=== PATIENT | male | born 1945 | race Caucasian/White ===

== ENCOUNTER 2016-08-08 22:36 | Inpatient (IN) ==
[2016-08-09] MEDS ORDERED: Ondansetron 4 MG/2 ML VIAL IVP ONE (01:34)
[2016-08-09] MEDS ORDERED: 0.9 % Sodium Chloride 1,000 ML IVC ONE (01:34)
[2016-08-09 02:16] LABS: Basophils % 0.1 %; Hemoglobin 14.2 g/dL (12.9-16.9); Immature Granulocytes % 0.6 % (0-4); Immature Platelets 5.4 % (1.1-6.1); Lymphocytes # 0.6 K/mcL (0.6-4.6); Lymphocytes % 6.5 %; Mean Corpuscular HGB Conc 34.6 g/dL (31.6-35.5); Mean Corpuscular Hemoglobin 29.9 pg (28.0-33.3); Mean Corpuscular Volume 86.3 fL (83.0-100.0); Mean Platelet Volume 10.4 fL (9.4-12.4); Monocytes # 0.9 K/mcL (0.0-1.3); Monocytes % 10.1 %; Neutrophils # 7.3 K/mcL (1.6-8.9); Platelet Count 115 K/mcL (140-400); Red Blood Count 4.75 M/mcL (4.19-5.50); Red Cell Distribution Width 13.1 % (11.5-14.5); Segmented Neutrophils % 82.7 %
[2016-08-09 02:30] LABS: Alanine Aminotransferase 50 Units/L (0-55); Albumin 3.4 g/dL (3.5-5.0); Albumin/Globulin Ratio 0.9 (1.1-2.2); Alkaline Phosphatase 65 Units/L (38-126); Aspartate Amino Transferase 40 Units/L (5-34); BUN/Creatinine Ratio 21 (6-26); Bilirubin,Direct 0.4 mg/dL (0.0-0.5); Bilirubin,Indirect 0.6 mg/dL (0.0-1.2); Blood Urea Nitrogen 18 mg/dL (8-26); Calcium 8.7 mg/dL (8.6-10.8); Carbon Dioxide 16 mEq/L (19-29); Chloride 97 mEq/L (98-109); Creatine Kinase 294 Units/L (30-200); Glucose 337 mg/dL (70-99); Osmolality,Calculated 283 (280-300); Phosphorous 2.9 mg/dL (2.3-4.7); Potassium 3.4 mEq/L (3.5-4.5); Sodium 129 mEq/L (136-145); Total Protein 7.4 g/dL (6.0-8.3); eGFR For African Americans > 60 (> 60); eGFR For Non-African Americans > 60 (> 60)
[2016-08-09 02:50] LABS: Thyroid Stimulating Hormone 0.718 mcIU/mL (0.350-4.840)
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
[2016-08-09] MEDS ORDERED: Magnesium Sulfate 1 GM in D5% in Water 100 ML IVPB ONE (05:15)
[2016-08-09] MEDS ORDERED: Thiamine (B-1) 100 MG in D5% in Water 50 ML IVPB STA (05:16)
[2016-08-09] MEDS ORDERED: Folic Acid 1 MG, Thiamine (B-1) 100 MG in D5% in Water 50 ML IVPB STA (05:16)
[2016-08-09 06:21] LABS: Bilirubin,Urine Negative (Negative); Blood,Urine Large (Negative); Clarity,Urine Clear (Clear); Color,Urine Yellow (Yellow); Glucose,Urine (UA) >=1000 mg/dL (Normal); Ketones,Urine 40 mg/dL (Negative); Leukocyte Esterase,Urine Negative (Negative); Nitrite,Urine Negative (Negative); Protein,Urine 100 mg/dL (Neg-Trace); Specific Gravity,Urine > 1.030 (1.010-1.025); Urobilinogen,Urine Normal (Normal)
[2016-08-09 06:23] LABS: Bacteria,Urine None Seen per hpf (None-Few); Hyaline Casts,Urine None Seen per lpf (None-Few); Squamous Epithelial Cell,Urine Moderate per lpf (None-Few)
[2016-08-09 06:26] LABS: Amphetamine Screen,Urine Negative ng/mL (Cutoff=1000); Barbiturate Screen,Urine Negative ng/mL (Cutoff=200); Benzodiazepines Screen,Urine Negative ng/mL (Cutoff=200); Cannabinoid Screen,Urine Negative ng/mL (Cutoff = 50); Cocaine Screen,Urine Negative ng/mL (Cutoff= 300); Opiate Screen,Urine Negative ng/mL (Cutoff=300); Phencyclidine Screen,Urine Negative ng/mL (Cutoff=25)
[2016-08-09] MEDS ORDERED: Ondansetron ODT 4 MG TAB.RAPDIS SL PRN (10:38)
[2016-08-09] MEDS ORDERED: Naloxone 0.4 MG/ML INJ IVP PRN (10:38)
[2016-08-09] MEDS ORDERED: *HR* Dextrose 50 % in Water (Syg) 50 ML SYRINGE IVP PRN ×2 (10:46→19:39)
[2016-08-09] MEDS ORDERED: Dextrose Gel 15 GM PO PRN ×2 (10:46)
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
[2016-08-09] MEDS ORDERED: 0.9 % Sodium Chloride 1,000 ML IVC SCH (12:15)
[2016-08-09 12:48] LABS: ABG Base Excess -1.5 mEq/L (-2.0 to 3.0); ABG HCO3 20.9 mEQ/L (21-27); ABG Oxygen Saturation 93 % (95-98); ABG PCO2 28 mmHg (35-45); ABG PH 7.48 pH Units (7.32-7.45); ABG PO2 62 mmHg (85-104); ABG TCO2 21.8 mEq/L (20-26)
[2016-08-09 12:49] LABS: Blood Gas FiO2 21 %
[2016-08-09] MEDS: Insulin LISPRO 300 UNITS/3 ML VIAL SQ SCH ×2 (12:57→15:51)
[2016-08-09 13:14] LABS: Hemoglobin A1C 8.3 %
[2016-08-09 13:29] LABS: Phosphorous 2.1 mg/dL (2.3-4.7)
[2016-08-09] MEDS ORDERED: *HR* Heparin 5,000 UNIT/ML VIAL IVP ONE (16:57)
[2016-08-09] MEDS ORDERED: *HR* Heparin 5,000 UNIT/ML VIAL IVP PRN ×2 (16:57)
[2016-08-09] MEDS ORDERED: Nitroglycerin 25 MG/250 ML INFUS..BTL IVC SCH (17:00)
[2016-08-09] MEDS ORDERED: Heparin 25,000 UNIT/500 ML D5W 25,000 UNIT/500 ML MLS IVC SCH (17:00)
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
--- NOTE | 2016-08-09 18:14 | Electrocardiograph Report ---
[address] [place] [address] Test Date: 2016-08-09 Pat Name: Sergo Hemphill Department: 104 Room: 2NE32 Gender: M [employer]: NEGIN : 1945 Requested By: Sylvain Coates Order Number: [id number] Reading MD: Sandi Gaspar Measurements Intervals [place] Rate: 112 P: 61 CA: 207 QRS: -78 QRSD: 149 T: 8 QT: 413 QTc: 480 Interpretive Statements SINUS TACHYCARDIA WITH OCCASIONAL SUPRAVENTRICULAR PREMATURE COMPLEXES RIGHT BUNDLE BRANCH BLOCK INFERIOR MYOCARDIAL INFARCTION, OF INDETERMINATE AGE ANTEROLATERAL LA, INDETERMINATE AGE Electronically Signed On 08-09-2016 18:13:09 EDT by Sandi Gaspar
[2016-08-09 19:09] LABS: Hematocrit 39.4 % (37.5-50.1); Hemoglobin 14.1 g/dL (12.9-16.9); Mean Corpuscular HGB Conc 35.8 g/dL (31.6-35.5); Mean Corpuscular Hemoglobin 30.7 pg (28.0-33.3); Mean Corpuscular Volume 85.8 fL (83.0-100.0); Mean Platelet Volume 10.9 fL (9.4-12.4); Platelet Count 111 K/mcL (140-400); Red Blood Count 4.59 M/mcL (4.19-5.50); Red Cell Distribution Width 13.2 % (11.5-14.5)
[2016-08-09 19:13] LABS: INR 1.4; Prothrombin Time 15.6 Seconds (9.4-12.1)
[2016-08-09 19:16] LABS: Activated Partial Thrombo Time 25.7 Seconds (26.0-36.0)
[2016-08-09 19:23] LABS: BUN/Creatinine Ratio 21 (6-26); Blood Urea Nitrogen 15 mg/dL (8-26); Calcium 8.6 mg/dL (8.6-10.8); Carbon Dioxide 17 mEq/L (19-29); Chloride 99 mEq/L (98-109); Glucose 246 mg/dL (70-99); Magnesium 1.3 mg/dL (1.6-2.6); Osmolality,Calculated 277 (280-300); Potassium 3.4 mEq/L (3.5-4.5); Sodium 129 mEq/L (136-145); eGFR For African Americans > 60 (> 60); eGFR For Non-African Americans > 60 (> 60)
[2016-08-09] MEDS ORDERED: D5% in 0.45% NACL 1,000 ML IVC PRN (19:39)
[2016-08-09] MEDS ORDERED: D5% in 0.45% NACL w KCl 20 MEQ/1,000 ML MLS IVC PRN (19:39)
[2016-08-09] MEDS ORDERED: Insulin Human Regular 100 UNIT in 0.9 % Sodium Chloride 100 ML IVC SCH (19:45)
[2016-08-09] MEDS ORDERED: Magnesium Sulfate 2 GM in D5% in Water 100 ML IVPB PRN (19:50)
[2016-08-09] MEDS ORDERED: Calcium Gluconate 1,000 MG in D5% in Water 100 ML IVPB PRN (19:50)
[2016-08-09] MEDS ORDERED: Sodium Phosphate 30 MMOL in D5% in Water 100 ML IVPB PRN (19:50)
--- NOTE | 2016-08-09 20:10 | ECHO - Doppler Report ---
Echocardiogram Name: Sergo Hemphill Date of Study: 08/09/2016 Date: 1945 Ht: 70.0 in Medical Record#: [id number] Age: 70 Wt: 220.0 lb Gender: Male BSA: 2.17 Order #: [id number] Location: [facility] Room #: 2NE32 Reading Physician: Alexx Rowland MD, [facility] Refuse Laborer: Lily Saldaña RDCS Ordering Physician: Maryam Bailey CNP Primary Physician: [facility] Indications: Right heart Strain PE Impressions: Technically sub-optimal due to clinical status. Patient was moving during the examination. Sinus tachycardia with bundle branch block. Severe LV systolic dysfunction, LVEF 30%. There are regional wall motion abnormalities, see diagram below. Consider ischemic cardiomyopathy vs stress-induced cardiomyopathy. Normal right ventricular size and function. No evidence of pulmonary hypertension. No significant valvular dysfunction. Left Ventricular Wall Motion: Rest Echo Findings The apex, apical inferior, mid inferior, basal inferior, apical anterior, apical septal, mid inferior septal, apical lateral, mid anterior lateral, mid anterior septal and mid inferior lateral vance were hypokinetic. All other wall segments showed normal motion. Findings: Study Quality * Technically sub-optimal due to clinical status. Patient was moving during the examination. ECG Findings * Sinus tachycardia with bundle branch block. Left Ventricle * Severe LV systolic dysfunction, LVEF 30%. There are regional wall motion abnormalities, see diagram below. Consider ischemic cardiomyopathy vs stress-induced cardiomyopathy. * Normal LV chamber size and wall thickness. * Indeterminate diastolic function. Right Ventricle * Normal right ventricular size and function. Left Atrium * Normal left atrial size. Right Atrium * Normal right atrial size. Aorta * Normally sized aortic root. Pericardium * There is a trivial pericardial effusion present. IVC * The IVC is not well evaluated. Aortic Valve * Trileaflet aortic valve. * No aortic stenosis. * No aortic regurgitation. Mitral Valve * Normal mitral valve structure. * No mitral stenosis. * No mitral regurgitation. Tricuspid Valve * Tricuspid valve not well visualized. * No tricuspid stenosis. * Trace tricuspid regurgitation. * No evidence of pulmonary hypertension. Pulmonic Valve * Pulmonic valve not well visualized. * No pulmonic stenosis. * Trace pulmonic regurgitation. History Hypertension Diabetes Hypercholesteremia Myocardial Infarction Measurements: BP: 177/ 102 2D Normal Values RVIDd: 3.30 cm IVSd: .90 cm 0.6 - 1.0 cm LVIDd: 5.70 cm 3.7 - 5.6 cm LVPWd: .80 cm 0.6 - 1.1 cm LVIDs: 3.70 cm 1.5 - 3.6 cm AO: 3.30 cm < 4.0 cm LA volume: 53 Tricuspid Valve TV Regurg Peak Grad: 25.00mmHg TV Regurg Peak Saad: 2.51m/sec Updated by Alexx Rowland MD, [facility] on 08/09/2016 8:04:43 PM electronically signed on 08/09/2016 8:05:33 PM with status of Final Wall Motion Strong: 1=Normal, 2=Hypokinesis, 3=Akinesis, 4=Dyskinesis, 5=Aneurysmal, 6=Hyperkinetic, X=Not Visualized (Blank)=Missing
[2016-08-09] MEDS ORDERED: 0.45 % Sodium Chloride w/KCl 20 MEQ/1,000 ML MLS IVC SCH (20:15)
[2016-08-09] MEDS ORDERED: Insulin LISPRO 300 UNITS/3 ML VIAL SQ SCH (21:00)
[2016-08-09 21:18] LABS: Adenovirus Not Detected (Not Detect); Bordetella Pertussis Not Detected (Not Detect); Chlamydophila pneumoniae Not Detected (Not Detect); Coronavirus 229E Not Detected (Not Detect); Coronavirus HKU1 Not Detected (Not Detect); Coronavirus NL63 Not Detected (Not Detect); Coronavirus OC43 Not Detected (Not Detect); Human Metapneumovirus Not Detected (Not Detect); Human Rhinovirus/Enterovirus Not Detected (Not Detect); Influenza A Subtype 2009 H1 Not Detected (Not Detect); Influenza A Untypeable Not Detected (Not Detect); Influenza B Not Detected (Not Detect); Mycoplasma pneumoniae Not Detected (Not Detect); Parainfluenza Virus 1 Not Detected (Not Detect); Parainfluenza Virus 2 Not Detected (Not Detect); Parainfluenza Virus 3 Not Detected (Not Detect); Parainfluenza Virus 4 Not Detected (Not Detect); Respiratory Syncytial Virus Not Detected (Not Detect)
[2016-08-09] MEDS: Gabapentin 400 MG CAPSULE PO SCH (21:58)
[2016-08-09] MEDS: 0.9 % Sodium Chloride w KCl 20 MEQ/1,000 ML MLS IVC SCH (22:30)
[2016-08-09] MEDS: 0.9 % Sodium Chloride 1,000 ML IVC SCH ×2 (22:30→22:31)
[2016-08-09 22:42] LABS: Hematocrit 39.7 % (37.5-50.1); Hemoglobin 14.1 g/dL (12.9-16.9); Immature Platelets 7.2 % (1.1-6.1); Mean Corpuscular HGB Conc 35.5 g/dL (31.6-35.5); Mean Corpuscular Hemoglobin 30.2 pg (28.0-33.3); Mean Platelet Volume 10.4 fL (9.4-12.4); Platelet Count 111 K/mcL (140-400); Red Blood Count 4.67 M/mcL (4.19-5.50); Red Cell Distribution Width 13.1 % (11.5-14.5)
[2016-08-09 22:55] LABS: BUN/Creatinine Ratio 21 (6-26); Blood Urea Nitrogen 15 mg/dL (8-26); Calcium 8.8 mg/dL (8.6-10.8); Carbon Dioxide 16 mEq/L (19-29); Chloride 98 mEq/L (98-109); Glucose 259 mg/dL (70-99); Magnesium 1.3 mg/dL (1.6-2.6); Osmolality,Calculated 280 (280-300); Potassium 3.5 mEq/L (3.5-4.5); Sodium 130 mEq/L (136-145); eGFR For African Americans > 60 (> 60); eGFR For Non-African Americans > 60 (> 60)
[2016-08-09 23:20] LABS: Lymphocytes # 1.3 K/mcL (0.6-4.6); Monocytes # 2.1 K/mcL (0.0-1.3); Neutrophils # 6.1 K/mcL (1.6-8.9)
[2016-08-09 23:23] LABS: Dohle Bodies Present (Not Present)
[2016-08-10] MEDS ORDERED: Acetaminophen 650 MG RECTAL SUPP RC ONE (00:41)
[2016-08-10] MEDS ORDERED: Aztreonam 2,000 MG in D5% in Water (Mini-Bag+) 100 ML IVPB ONE (00:43)
[2016-08-10] MEDS ORDERED: Vancomycin 1,500 MG in D5% in Water 250 ML IVPB ONE (00:43)
[2016-08-10 01:08] LABS: Hematocrit 39.7 % (37.5-50.1); Mean Corpuscular HGB Conc 35.3 g/dL (31.6-35.5); Mean Corpuscular Hemoglobin 29.9 pg (28.0-33.3); Mean Corpuscular Volume 84.6 fL (83.0-100.0); Mean Platelet Volume 10.8 fL (9.4-12.4); Platelet Count 108 K/mcL (140-400); Red Blood Count 4.69 M/mcL (4.19-5.50); Red Cell Distribution Width 13.1 % (11.5-14.5); VBG HCO3 19.6 mEq/L (21-27); VBG PH 7.52 pH Units (7.32-7.42)
[2016-08-10 01:26] LABS: BUN/Creatinine Ratio 23 (6-26); Blood Urea Nitrogen 17 mg/dL (8-26); Calcium 9.1 mg/dL (8.6-10.8); Carbon Dioxide 18 mEq/L (19-29); Chloride 101 mEq/L (98-109); Glucose 166 mg/dL (70-99); Magnesium 1.6 mg/dL (1.6-2.6); Osmolality,Calculated 277 (280-300); Potassium 3.3 mEq/L (3.5-4.5); Sodium 131 mEq/L (136-145); eGFR For African Americans > 60 (> 60); eGFR For Non-African Americans > 60 (> 60)
[2016-08-10] MEDS: 0.9 % Sodium Chloride w KCl 20 MEQ/1,000 ML MLS IVC SCH ×2 (01:34→02:05)
[2016-08-10] MEDS: 0.9 % Sodium Chloride 1,000 ML IVC SCH ×3 (01:34→02:31)
[2016-08-10 01:35] LABS: Lymphocytes # 1.2 K/mcL (0.6-4.6); Monocytes # 0.2 K/mcL (0.0-1.3); Neutrophils # 8.4 K/mcL (1.6-8.9); Platelet Estimate Decreased (Normal); Reactive Lymphocytes Present (Not Present)
[2016-08-10 01:36] LABS: Dohle Bodies Present (Not Present)
[2016-08-10] MEDS ORDERED: *HR* Dextrose 50 % in Water (Syg) 50 ML SYRINGE IVP PRN (01:59)
[2016-08-10] MEDS ORDERED: Dextrose Gel 15 GM PO PRN ×2 (01:59)
[2016-08-10] MEDS: Insulin DETEMIR 100 UNIT/ML X5UNITS SQ SCH ×2 (02:20→19:45)
[2016-08-10] MEDS: Vancomycin 1,500 MG in D5% in Water 250 ML IVPB SCH ×2 (03:47→16:13)
[2016-08-10] MEDS: Insulin LISPRO 300 UNITS/3 ML VIAL SQ SCH ×4 (06:06→23:22)
[2016-08-10] MEDS: Acetaminophen 650 MG RECTAL SUPP RC PRN (06:47)
[2016-08-10] MEDS: Aspirin 81 MG TAB.CHEW PO SCH (07:56)
[2016-08-10] MEDS: Cholecalciferol (D-3) 1,000 UNIT TABLET PO SCH (07:56)
[2016-08-10] MEDS: Gabapentin 400 MG CAPSULE PO SCH ×4 (07:56→19:45)
[2016-08-10 08:20] LABS: BUN/Creatinine Ratio 27 (6-26); Blood Urea Nitrogen 19 mg/dL (8-26); Calcium 8.7 mg/dL (8.6-10.8); Carbon Dioxide 17 mEq/L (19-29); Chloride 100 mEq/L (98-109); Glucose 236 mg/dL (70-99); Magnesium 1.8 mg/dL (1.6-2.6); Osmolality,Calculated 278 (280-300); Potassium 3.6 mEq/L (3.5-4.5); Sodium 129 mEq/L (136-145); eGFR For African Americans > 60 (> 60); eGFR For Non-African Americans > 60 (> 60)
[2016-08-10] MEDS: MetroNIDAZOLE 500 MG/100 ML 500 MG/100 ML BAG IVPB SCH ×3 (08:27→23:21)
[2016-08-10 10:35] LABS: ABG Base Excess -2.2 mEq/L (-2.0 to 3.0); ABG HCO3 20.6 mEQ/L (21-27); ABG Oxygen Saturation 93 % (95-98); ABG PCO2 29 mmHg (35-45); ABG PH 7.46 pH Units (7.32-7.45); ABG PO2 62 mmHg (85-104); ABG TCO2 21.5 mEq/L (20-26)
[2016-08-10 10:36] LABS: Blood Gas FiO2 30 %
--- NOTE | 2016-08-10 11:05 | Cardiology Progress Note ---
Date of Encounter: 07/13/16 Time of Encounter: 11:03 Assessment and Plan (1) Elevated troponin Current Visit: Yes Status: Acute Elevated troponin 0.03, 0.17. Demand ischemia in the setting of acute viral illness and DKA. EKG shows sinus tachycardia and RBBB. Old inferior NJ. TTE shows reduced EF, no previous echo to compare. Possible takostubo cardiomyopathy vs ischemic cause. Recommend treating viral illness and DKA and repeat study prior to discharge to re-evaluate EF. Please notify cardiology once completed so recommendations can be made. We will follow peripherally. Caution with IV fluid d/t low EF. He is chest pain free. (2) Cardiomyopathy Current Visit: Yes Status: Acute TTE shows severe reduction of LV function. EF 30%. No significant valvular disease. Consider takostubo vs ischemia. No significant fluid overload on exam. CXR shows pulmonary congestion, pulmonary edema. Recommend holding IV fluid. Consider diuresis as needed. 24 hour fluid status is -1577 ml. He is NPO. Low sodium diet once taking oral. Recommend treating DKA, viral illness, and fever. Prior to discharge repeat echocardiogram. Please call for further recommendation and follow-up. Change lopressor to toprol XL. Add prisca-inhibitor. We will follow peripherally while he is treated for his viral illness and DKA. Qualifiers: Cardiomyopathy type: unspecified Qualified Code(s): I42.9 - Cardiomyopathy , unspecified (3) Hypertension Current Visit: Yes Status: Acute B/p improved. Wean off NTG gtt. Start lisinopril. Qualifiers: Hypertension type: essential hypertension Qualified Code(s): I10 - Essential (primary) hypertension Discussion w patient/family: The assessment and plan as outlined above was discussed with the patient and/or family members who expressed understanding and agreement. All questions were answered. Thank you for involving us in the care of your patient. Please call with any questions. Plan of care discussed with Dr. Rowland. Subjective Principal diagnosis: viral syndrome/ DKA/cardiomyoapthy Interval history: Mr. Hemphill is more confused this morning. Currently with fever and cooling blanket. Denies chest pain. Objective Vital Signs, Last 4 Hours Temp Pulse Resp BP Pulse Ox 08/10/16 10:10 101.6 F H 103 22 140/90 91 L 08/10/16 08:34 102.8 F H 105 133/89 92 L 08/10/16 08:25 91 L General: Other (Confused, restless, ill apppearing male) HEENT: Atraumatic, Normocephaly, Mucus Membranes Moist Neck: No JVD, Normal carotid pulses Cardiac: Reg Rate and Rhythm, Other (SR RBBB) Lungs: Normal Breath Sounds, No Wheeze, Rales, Rhonchi Neuro: Alert and responsive, No focal deficits noted Abdomen: Soft, Non-Tender Skin: No rashes noted on visualized skin Musculoskeletal: No Chest Wall Tenderness Extremities: No Clubbing, No Cyanosis, No Edema, Normal Pulses Results 08/10/16 01:00 08/10/16 07:57 Lab Results 08/09/16 08/09/16 08/09/16 12:47 12:47 18:51 WBC 8.6 Hgb 14.1 Hct 39.4 Plt Count 111 L INR APTT D-Dimer 4758 H Sodium Potassium Chloride Carbon Dioxide BUN Creatinine Glucose Calcium Magnesium Troponin I 0.17 H* 08/09/16 08/09/16 08/09/16 18:51 18:51 22:26 WBC 9.5 Hgb 14.1 Hct 39.7 Plt Count 111 L INR 1.4 APTT 25.7 L D-Dimer Sodium 129 L Potassium 3.4 L Chloride 99 Carbon Dioxide 17 L BUN 15 Creatinine 0.72 Glucose 246 H Calcium 8.6 Magnesium 1.3 L Troponin I 08/09/16 08/10/16 08/10/16 22:26 01:00 01:00 WBC 9.8 Hgb 14.0 Hct 39.7 Plt Count 108 L INR APTT D-Dimer Sodium 130 L 131 L Potassium 3.5 3.3 L Chloride 98 101 Carbon Dioxide 16 L 18 L BUN 15 17 Creatinine 0.72 0.73 Glucose 259 H 166 H Calcium 8.8 9.1 Magnesium 1.3 L 1.6 Troponin I 08/10/16 07:57 WBC Hgb Hct Plt Count INR APTT D-Dimer Sodium 129 L Potassium 3.6 Chloride 100 Carbon Dioxide 17 L BUN 19 Creatinine 0.71 L Glucose 236 H Calcium 8.7 Magnesium 1.[address] 08/09/16 01:38 IMPRESSION: No acute intracranial abnormality. D/ / Saulo Meehan MD / Saulo Meehan MD Interpreting Provider: Saulo Meehan MD Wrist X-Ray 08/09/16 03:57 IMPRESSION: No fracture or malalignment. D/ / Justice Harper MD / Justice Harper MD Interpreting Provider: Justice Harper MD Brain MRI 08/09/16 12:20 IMPRESSION: No acute intracranial abnormality. Mild generalized volume loss and mild chronic microvascular ischemic disease. D/ / 08/09/2016 14:14:02 Yeimy Monique MD / [facility] Interpreting Provider: Yeimy Monique MD Chest CTA 08/09/16 14:26 IMPRESSION: 1. No evidence of pulmonary embolus. 2. No acute pulmonary abnormality to account for patient's shortness of breath. 3. Moderate centrilobular emphysema. 4. Coronary artery disease. D/ / 08/09/2016 15:51:30 Peter Wood MD / [facility] Interpreting Provider: Peter Wood MD Cervical Spine MRI 08/09/16 19:51 IMPRESSION: Severely motion degraded exam. No obvious epidural collection or mass detected. Disc osteophyte complex at C3-C4 appears to moderately narrow the spinal canal and both neural foramen. Milder degenerative neural foraminal stenosis at C4-C5, C5-C6, and C6-C7. D/ / Ralph Fleming MD / Ralph Fleming MD Interpreting Provider: Ralph Fleming MD Abdomen/Pelvis CT 08/10/16 00:44 IMPRESSION: 1. Diverticulosis with suspected diverticulitis of the distal descending colon. 2. Coronary artery disease. D/ / Justice Harper MD / Justice Harper MD Interpreting Provider: Justice Harper MD Chest X-Ray 08/10/16 10:20 IMPRESSION: Pulmonary vascular congestion with mild increased prominence of the interstitium suggestive of fluid overload. Otherwise no acute process. D/ / Nilay Tejeda MD / Nliay Tejeda MD Interpreting Provider: Nilay Tejeda MD - Imaging and Cardiology Chest Xray: report reviewed Echo: report reviewed - EKG Interpretation EKG results cardiology: other - VTE Documentation of Mechanical Device: Intermittent pneumatic compression device Consult Discharge Plan - Plan [facility]errals: [facility] [Primary Care Provider] -
[2016-08-10 11:19] LABS: Acinetobacter baumannii by PCR Not Detected (Not Detect); Candida albicans by PCR Not Detected (Not Detect); Candida glabrata by PCR Not Detected (Not Detect); Candida krusei by PCR Not Detected (Not Detect); Candida parapsilosis by PCR Not Detected (Not Detect); Candida tropicalis by PCR Not Detected (Not Detect); Enterococcus by PCR Not Detected (Not Detect); Escherichia coli by PCR Not Detected (Not Detect); Klebsiella oxytoca by PCR Not Detected (Not Detect); Klebsiella pneumoniae by PCR Not Detected (Not Detect); Pseudomonas aeruginosa by PCR Not Detected (Not Detect); Serratia marcescens by PCR Not Detected (Not Detect); Staphylococcus aureus by PCR ***DETECTED*** (Not Detect); Streptococcus agalactiae(B)PCR Not Detected (Not Detect); Streptococcus by PCR Not Detected (Not Detect); Streptococcus pneumoniae PCR Not Detected (Not Detect); Streptococcus pyogenes (A) PCR Not Detected (Not Detect); mecA Methicillin-Resist Gene Not Detected (Not Detect)
[2016-08-10] MEDS: Metoprolol XL (24 HR) Succ 25 MG TAB.ER.24H PO SCH (12:55)
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
[2016-08-10] MEDS: Aztreonam 1,000 MG in D5% in Water (Mini-Bag+) 100 ML IVPB SCH ×2 (16:13→23:21)
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
[2016-08-10] MEDS ORDERED: Acetaminophen IV 500 MG/50 ML INFUS..BTL IVPB ONE (19:08)
[2016-08-10] MEDS: Furosemide 40 MG/4 ML VIAL IVP SCH (19:46)
[2016-08-10 21:01] LABS: BUN/Creatinine Ratio 28 (6-26); Blood Urea Nitrogen 21 mg/dL (8-26); Calcium 8.6 mg/dL (8.6-10.8); Carbon Dioxide 16 mEq/L (19-29); Chloride 99 mEq/L (98-109); Glucose 320 mg/dL (70-99); Osmolality,Calculated 281 (280-300); Potassium 3.5 mEq/L (3.5-4.5); Sodium 128 mEq/L (136-145); eGFR For African Americans > 60 (> 60); eGFR For Non-African Americans > 60 (> 60)
[2016-08-11] MEDS: Vancomycin 1,500 MG in D5% in Water 250 ML IVPB SCH (01:59)
[2016-08-11] MEDS: Acetaminophen 650 MG RECTAL SUPP RC PRN ×2 (02:04→09:04)
[2016-08-11 06:30] LABS: BUN/Creatinine Ratio 34 (6-26); Blood Urea Nitrogen 25 mg/dL (8-26); Calcium 8.9 mg/dL (8.6-10.8); Carbon Dioxide 16 mEq/L (19-29); Chloride 99 mEq/L (98-109); Glucose 319 mg/dL (70-99); Magnesium 1.7 mg/dL (1.6-2.6); Osmolality,Calculated 285 (280-300); Phosphorous 2.5 mg/dL (2.3-4.7); Potassium 3.7 mEq/L (3.5-4.5); Sodium 129 mEq/L (136-145); eGFR For African Americans > 60 (> 60); eGFR For Non-African Americans > 60 (> 60)
[2016-08-11 06:59] LABS: Ionized Calcium 0.96 mmol/L (1.15-1.35)
[2016-08-11 07:23] LABS: Platelet Estimate Decreased (Normal)
[2016-08-11 07:24] LABS: Toxic Granulation Present (Not Present)
[2016-08-11] MEDS: Insulin LISPRO 300 UNITS/3 ML VIAL SQ SCH ×4 (08:40→21:59)
[2016-08-11] MEDS: Aztreonam 1,000 MG in D5% in Water (Mini-Bag+) 100 ML IVPB SCH ×2 (08:49→16:13)
[2016-08-11] MEDS: Aspirin 81 MG TAB.CHEW PO SCH (08:52)
[2016-08-11] MEDS: Cholecalciferol (D-3) 1,000 UNIT TABLET PO SCH (08:53)
[2016-08-11] MEDS: Metoprolol XL (24 HR) Succ 25 MG TAB.ER.24H PO SCH (08:53)
[2016-08-11] MEDS: Gabapentin 400 MG CAPSULE PO SCH ×4 (08:54→21:36)
[2016-08-11] MEDS: Furosemide 40 MG/4 ML VIAL IVP SCH ×2 (08:56→16:14)
[2016-08-11] MEDS ORDERED: Aminoglycoside Consult 1 EACH MC ONE (09:52)
[2016-08-11] MEDS: MetroNIDAZOLE 500 MG/100 ML 500 MG/100 ML BAG IVPB SCH ×2 (09:56→16:14)
[2016-08-11] MEDS: Micafungin 100 MG in 0.9 % Sodium Chloride 100 ML IVPB SCH (12:41)
[2016-08-11 13:33] LABS: Appearance,CSF Clear (Clear)
[2016-08-11 13:34] LABS: Red Blood Cell,CSF < 0 RBC/mcL (0-1)
[2016-08-11] MEDS ORDERED: Vancomycin 1,750 MG in D5% in Water 500 ML IVPB SCH (14:00)
[2016-08-11 16:02] LABS: Hemoglobin 14.3 g/dL (12.9-16.9); Lymphocytes # 0.6 K/mcL (0.6-4.6); Neutrophils # 9.5 K/mcL (1.6-8.9); Red Blood Count 4.78 M/mcL (4.19-5.50)
[2016-08-11 16:03] LABS: Hematocrit 41.9 % (37.5-50.1); Mean Corpuscular HGB Conc 34.1 g/dL (31.6-35.5); Mean Corpuscular Hemoglobin 29.9 pg (28.0-33.3); Mean Corpuscular Volume 87.7 fL (83.0-100.0); Platelet Count 111 K/mcL (140-400); Red Cell Distribution Width 13.5 % (11.5-14.5)
[2016-08-11 16:04] LABS: Mean Platelet Volume 11.9 fL (9.4-12.4)
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
[2016-08-11] MEDS: Acetaminophen 325 MG TABLET PO PRN (16:35)
--- NOTE | 2016-08-11 17:42 | Orthopedics Progress Note ---
Date of Encounter: 08/11/16 Time of Encounter: 17:35 Subjective Principal diagnosis: MSSA bacteremia Interval history: Patient is seen in follow-up regarding his right wrist. He remains confused. and daughter are here and I was able to obtain some further history from them. They tell me the patient has had several falls most being about a week ago. He also has been having some pain in the wrist since those recent falls. He also states that the patient has had numerous episodes of "sugar boils" on his legs. [facility] Vital signs are stable. He does have a temperature of 100.9 rectal. Wrist looks about the same. There is no significant edema. There is some mild erythema. Blood cell count remains normal at 10.1. Hemoglobin is stable at 14.3. Platelet count remained stable at 111. Impression: MSSA bacteremia, questionable infection right wrist Recommendation: I do not see the need to proceed with a aspiration of the wrist , patient has been on intravenous antibiotics for a period time and this would probably have sterilized the fluid if any would be aspirated. I do not think this would alter our treatment unless we can prove a joint infection. We will continue to monitor his clinical status and make any further recommendations pending clinical or other findings. Objective Vital signs: Vital Signs Temp Pulse Resp BP Pulse Ox 08/11/16 11:10 100.9 F H 90 30 107/63 95 08/11/16 07:45 101.6 F H 98 32 148/92 96 08/11/16 05:17 34 163/97 97 08/11/16 04:10 102.4 F H 94 34 163/97 97 08/11/16 00:12 26 92 L 08/10/16 23:30 98 08/10/16 23:21 102.0 F H 92 33 99 08/10/16 21:06 32 133/67 97 08/10/16 20:10 102.9 F H 98 39 150/99 97 Intake and Output 08/11/16 08/11/16 08/11/16 07:59 15:59 23:59 Intake Total 100 / 100 200 / 200 Output Total 800 / 800 Balance -700 / -700 200 / 200 Intake: IV Fluids 100 / 100 200 / 200 Azactam 1,000 MG In 100 / 100 Dextrose 5% (Minibag+) 100 ML 100 ML @ 200 mls/ hr IVPB Q8HR [facility] Rx#: [id number] Flagyl 500 MG/100 ML 500 100 / 100 100 / 100 mg In 100 ml @ 100 mls/hr IVPB Q8HR [facility] Rx#: [id number] Output: Urine 400 / 400 Urethral (Chavez) 400 / 400 Catheter 400 / 400 - Labs CBC & BMP: 08/11/16 05:44 08/11/16 13:05 Labs: Abnormal lab results Plt Count 111 K/mcL (140-400) L 08/11/16 05:44 Band Neutrophils % 10.0 % (0-4) H 08/11/16 05:44 Neutrophils # 9.5 K/mcL (1.6-8.9) H 08/11/16 05:44 Hyposegmented Neuts Present (Not Present) A 08/10/16 01:00 Reactive Lymphocytes Present (Not Present) A 08/10/16 01:00 Toxic Granulation Present (Not Present) A 08/11/16 05:44 Dohle Bodies Present (Not Present) A 08/10/16 01:00 Platelet Estimate Decreased (Normal) L 08/11/16 05:44 Immature Plt Fraction 7.2 % (1.1-6.1) H 08/09/16 22:26 PT 15.6 Seconds (9.4-12.1) H 08/09/16 18:51 APTT 25.7 Seconds (26.0-36.0) L 08/09/16 18:51 D-Dimer 4758 ng/mLFEU (0-500) H 08/09/16 12:47 ABG pH 7.46 pH Units (7.32-7.45) H 08/10/16 10:25 ABG pCO2 29 mmHg (35-45) L 08/10/16 10:25 ABG pO2 62 mmHg (85-104) L 08/10/16 10:25 ABG HCO3 20.6 mEQ/L (21-27) L 08/10/16 10:25 ABG O2 Saturation 93 % (95-98) L 08/10/16 10:25 ABG Base Excess -2.2 mEq/L (-2.0 to 3.0) L 08/10/16 10:25 VBG pH 7.52 pH Units (7.32-7.42) H 08/10/16 01:00 VBG pCO2 24 mmHg (41-51) L 08/10/16 01:00 VBG pO2 84 mmHg (25-40) H 08/10/16 01:00 VBG HCO3 19.6 mEq/L (21-27) L 08/10/16 01:00 Sodium 129 mEq/L (136-145) L 08/11/16 05:44 Carbon Dioxide 16 mEq/L (19-29) L 08/11/16 05:44 BUN/Creatinine Ratio 34 (6-26) H 08/11/16 05:44 Glucose 342 mg/dL (70-99) H 08/11/16 13:05 POC Glucose 284 (58-89) H 08/10/16 23:20 Hemoglobin A1c 8.3 % (-5.6) H 08/09/16 12:47 Ionized Calcium 0.96 mmol/L (1.15-1.35) L 08/11/16 05:44 AST 40 Units/L (5-34) H 08/09/16 02:10 Creatine Kinase 294 Units/L (30-200) H 08/09/16 02:10 Troponin I 0.17 ng/mL (0-0.03) H* 08/09/16 12:47 C-Reactive Protein 269 mg/L (Less than 5) H 08/09/16 12:47 Albumin 3.4 g/dL (3.5-5.0) L 08/09/16 02:10 Globulin 4.0 g/dL (2.4-3.5) H 08/09/16 02:10 Albumin/Globulin Ratio 0.9 (1.1-2.2) L 08/09/16 02:10 Beta-Hydroxybutyric Acd 1.33 mmol/L (0.02-0.27) H 08/09/16 12:47 Ur Specific [place] > 1.030 (1.010-1.025) H 08/09/16 06:14 Urine Protein 100 mg/dL (Neg-Trace) H 08/09/16 06:14 Urine Glucose (UA) >=1000 mg/dL (Normal) H 08/09/16 06:14 Urine Ketones 40 mg/dL (Negative) H 08/09/16 06:14 Urine Blood Large (Negative) H 08/09/16 06:14 Urine Microscopic RBC 5-15 per hpf (0-3) H 08/09/16 06:14 Urine Microscopic WBC 3-5 per hpf (0-3) H 08/09/16 06:14 Ur Squamous Epith Cells Moderate per lpf (None-Few) H 08/09/16 06:14 CSF RBC < 0 RBC/mcL (0-1) L 08/11/16 11:54 Vancomycin Trough 8.9 mcg/mL (10-20) L 08/11/16 13:05 Staphylococcus sp PCR DETECTED (Not Detect) A 08/09/16 22:26 Staph aureus (PCR) DETECTED (Not Detect) A 08/09/16 22:26 - VTE Documentation of Mechanical Device: Intermittent pneumatic compression device Consult Discharge Plan - Plan [facility] Care Provider[facility] -
[2016-08-11] MEDS ORDERED: D10% in Water 500 ML IVC SCH (19:00)
[2016-08-11 21:10] LABS: BUN/Creatinine Ratio 37 (6-26); Blood Urea Nitrogen 30 mg/dL (8-26); Calcium 9.2 mg/dL (8.6-10.8); Carbon Dioxide 20 mEq/L (19-29); Chloride 96 mEq/L (98-109); Glucose 348 mg/dL (70-99); Osmolality,Calculated 290 (280-300); Potassium 3.3 mEq/L (3.5-4.5); Sodium 130 mEq/L (136-145); eGFR For African Americans > 60 (> 60); eGFR For Non-African Americans > 60 (> 60)
[2016-08-11] MEDS ORDERED: Ibuprofen 600 MG TABLET PO ONE (21:24)
[2016-08-11] MEDS: Insulin DETEMIR 100 UNIT/ML X5UNITS SQ SCH (21:57)
[2016-08-11] MEDS: Heparin 25,000 UNIT/500 ML D5W 25,000 UNIT/500 ML MLS IVC SCH (22:06)
[2016-08-12] MEDS ORDERED: *HR* Dextrose 50 % in Water (Syg) 50 ML SYRINGE IVP PRN (01:08)
[2016-08-12] MEDS ORDERED: D5% in Water 1,000 ML IVC PRN (01:08)
[2016-08-12] MEDS ORDERED: Dextrose Gel 15 GM PO PRN ×2 (01:08)
[2016-08-12] MEDS: Clindamycin 600 MG/50 ML 600 MG/50 ML IV.SOLN IVPB SCH ×3 (01:18→17:25)
[2016-08-12] MEDS: MetroNIDAZOLE 500 MG/100 ML 500 MG/100 ML BAG IVPB SCH ×3 (01:19→17:27)
[2016-08-12] MEDS: Aztreonam 1,000 MG in D5% in Water (Mini-Bag+) 100 ML IVPB SCH ×3 (01:27→17:22)
[2016-08-12] MEDS: Insulin LISPRO 300 UNITS/3 ML VIAL SQ SCH ×7 (02:33→22:34)
[2016-08-12 03:58] LABS: Hematocrit 41.9 % (37.5-50.1); Hemoglobin 14.5 g/dL (12.9-16.9); Mean Corpuscular HGB Conc 34.6 g/dL (31.6-35.5); Mean Corpuscular Hemoglobin 30.1 pg (28.0-33.3); Mean Corpuscular Volume 86.9 fL (83.0-100.0); Mean Platelet Volume 11.8 fL (9.4-12.4); Platelet Count 139 K/mcL (140-400); Red Blood Count 4.82 M/mcL (4.19-5.50); Red Cell Distribution Width 13.6 % (11.5-14.5)
[2016-08-12 04:10] LABS: BUN/Creatinine Ratio 44 (6-26); Blood Urea Nitrogen 36 mg/dL (8-26); Calcium 8.9 mg/dL (8.6-10.8); Carbon Dioxide 21 mEq/L (19-29); Chloride 95 mEq/L (98-109); Glucose 387 mg/dL (70-99); Osmolality,Calculated 296 (280-300); Potassium 2.9 mEq/L (3.5-4.5); Sodium 131 mEq/L (136-145); eGFR For African Americans > 60 (> 60); eGFR For Non-African Americans > 60 (> 60)
[2016-08-12 04:26] LABS: Lymphocytes # 1.5 K/mcL (0.6-4.6); Monocytes # 0.8 K/mcL (0.0-1.3); Neutrophils # 8.1 K/mcL (1.6-8.9)
[2016-08-12 04:27] LABS: Dohle Bodies Present (Not Present); Platelet Estimate Slight Decrease (Normal); Reactive Lymphocytes Present (Not Present); Toxic Granulation Present (Not Present)
[2016-08-12] MEDS: Aspirin 81 MG TAB.CHEW PO SCH (08:45)
[2016-08-12] MEDS: Cholecalciferol (D-3) 1,000 UNIT TABLET PO SCH (08:45)
[2016-08-12] MEDS: Furosemide 40 MG/4 ML VIAL IVP SCH ×2 (08:45→18:24)
[2016-08-12] MEDS: Metoprolol XL (24 HR) Succ 25 MG TAB.ER.24H PO SCH (08:45)
[2016-08-12] MEDS: Micafungin 100 MG in 0.9 % Sodium Chloride 100 ML IVPB SCH (10:11)
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
--- NOTE | 2016-08-12 11:20 | Event Note ---
Date of Encounter: 08/12/16 Time of Encounter: 11:16 - Cardiology Event Note Staph aureus sepsis: Source unknown. Blood c/s 3 grew Staph, pt remains febrile. Echocardiogram from 08/09 negative for any vegetations. On antibiotics, but concern for cardiac source. Plan for DANTE tomorrow to further evaluate. R/B/ A discussed and pt agreeable. Continue heparin gtt. Recommend weaning off Cardizem gtt since EF is 30%. Uptitrate BB for HR control. Will re-evaluate tomorrow.
[2016-08-12] MEDS ORDERED: Ringers Solution, Lactated 1,000 ML IVC ONE (13:15)
[2016-08-12] MEDS ORDERED: Insulin Human Regular 100 UNIT in 0.9 % Sodium Chloride 100 ML IVC SCH (13:30)
[2016-08-12] MEDS: 0.9 % Sodium Chloride 1,000 ML IVC SCH ×2 (15:12→20:15)
[2016-08-12] MEDS: Heparin 25,000 UNIT/500 ML D5W 25,000 UNIT/500 ML MLS IVC SCH (16:19)
[2016-08-12 18:47] LABS: BUN/Creatinine Ratio 46 (6-26); Blood Urea Nitrogen 31 mg/dL (8-26); Calcium 7.3 mg/dL (8.6-10.8); Carbon Dioxide 21 mEq/L (19-29); Chloride 99 mEq/L (98-109); Glucose 191 mg/dL (70-99); Osmolality,Calculated 284 (280-300); Sodium 131 mEq/L (136-145); eGFR For African Americans > 60 (> 60); eGFR For Non-African Americans > 60 (> 60)
--- NOTE | 2016-08-12 20:36 | Electrocardiograph Report ---
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
[2016-08-12] MEDS ORDERED: Insulin DETEMIR 100 UNIT/ML X5UNITS SQ SCH (21:00)
[2016-08-13] MEDS: Clindamycin 600 MG/50 ML 600 MG/50 ML IV.SOLN IVPB SCH ×2 (00:48→08:30)
[2016-08-13] MEDS: MetroNIDAZOLE 500 MG/100 ML 500 MG/100 ML BAG IVPB SCH ×3 (00:48→16:48)
[2016-08-13] MEDS: Aztreonam 1,000 MG in D5% in Water (Mini-Bag+) 100 ML IVPB SCH ×3 (00:49→16:47)
[2016-08-13 00:59] LABS: Basophils % 0.2 %; Eosinophils % 0.1 %; Hematocrit 36.9 % (37.5-50.1); Hemoglobin 13.1 g/dL (12.9-16.9); Lymphocytes # 0.9 K/mcL (0.6-4.6); Lymphocytes % 10.3 %; Mean Corpuscular HGB Conc 35.5 g/dL (31.6-35.5); Mean Corpuscular Hemoglobin 30.3 pg (28.0-33.3); Mean Corpuscular Volume 85.4 fL (83.0-100.0); Mean Platelet Volume 11.5 fL (9.4-12.4); Monocytes # 0.9 K/mcL (0.0-1.3); Monocytes % 9.6 %; Neutrophils # 7.1 K/mcL (1.6-8.9); Platelet Count 166 K/mcL (140-400); Red Blood Count 4.32 M/mcL (4.19-5.50); Red Cell Distribution Width 13.5 % (11.5-14.5); Segmented Neutrophils % 78.8 %
[2016-08-13 01:14] LABS: BUN/Creatinine Ratio 41 (6-26); Blood Urea Nitrogen 28 mg/dL (8-26); Calcium 7.9 mg/dL (8.6-10.8); Carbon Dioxide 21 mEq/L (19-29); Chloride 99 mEq/L (98-109); Glucose 213 mg/dL (70-99); Osmolality,Calculated 282 (280-300); Sodium 130 mEq/L (136-145); eGFR For African Americans > 60 (> 60); eGFR For Non-African Americans > 60 (> 60)
[2016-08-13] MEDS: 0.9 % Sodium Chloride 1,000 ML IVC SCH ×2 (01:17→16:44)
[2016-08-13 01:38] LABS: Anisocytosis 1+ (Not Present); Platelet Estimate Normal (Normal)
[2016-08-13 01:39] LABS: Poikilocytosis 1+ (Not Present); Reactive Lymphocytes Present (Not Present)
[2016-08-13 02:41] LABS: Adenovirus F 40/41 PCR Not detected (Not detect); Astrovirus PCR Not detected (Not detect); C.difficile Toxin A/B by PCR Not detected (Not detect); Campylobacter by PCR Not detected (Not detect); Cryptosporidium by PCR Not detected (Not detect); Cyclospora cayetanensis PCR Not detected (Not detect); E. coli O157 by PCR Not detected (Not detect); Entamoeba histolytica PCR Not detected (Not detect); Enteropathogenic E.coli(EPEC) Not detected (Not detect); Enterotoxigenic E.coli (ETEC) Not detected (Not detect); Giardia lamblia PCR Not detected (Not detect); Norovirus GI/GII PCR Not detected (Not detect); Plesiomonas shigelloides PCR Not detected (Not detect); Rotavirus A PCR Not detected (Not detect); Salmonella PCR Not detected (Not detect); Shig/EnteroinvasiveE coli EIEC Not detected (Not detect); Shigalike tox-prod E coli STEC Not detected (Not detect); Vibrio PCR Not detected (Not detect); Vibrio cholerae PCR Not detected (Not detect); Yersinia enterocolitica PCR Not detected (Not detect)
[2016-08-13 02:42] LABS: Enteroaggregative E.coli(EAEC) ***DETECTED*** (Not detect); Sapovirus PCR Not detected (Not detect)
[2016-08-13] MEDS: Acetaminophen 325 MG TABLET PO PRN (02:54)
[2016-08-13 05:53] LABS: Acinetobacter baumannii by PCR Not Detected (Not Detect); Candida albicans by PCR Not Detected (Not Detect); Candida glabrata by PCR Not Detected (Not Detect); Candida krusei by PCR Not Detected (Not Detect); Candida parapsilosis by PCR Not Detected (Not Detect); Candida tropicalis by PCR Not Detected (Not Detect); Enterococcus by PCR Not Detected (Not Detect); Escherichia coli by PCR Not Detected (Not Detect); Klebsiella oxytoca by PCR Not Detected (Not Detect); Klebsiella pneumoniae by PCR Not Detected (Not Detect); Pseudomonas aeruginosa by PCR Not Detected (Not Detect); Serratia marcescens by PCR Not Detected (Not Detect); Staphylococcus aureus by PCR ***DETECTED*** (Not Detect); Streptococcus agalactiae(B)PCR Not Detected (Not Detect); Streptococcus by PCR Not Detected (Not Detect); Streptococcus pneumoniae PCR Not Detected (Not Detect); Streptococcus pyogenes (A) PCR Not Detected (Not Detect); mecA Methicillin-Resist Gene Not Detected (Not Detect)
--- NOTE | 2016-08-13 06:27 | Electrocardiograph Report ---
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
[2016-08-13] MEDS: Aspirin 81 MG TAB.CHEW PO SCH (08:40)
[2016-08-13] MEDS: Furosemide 40 MG/4 ML VIAL IVP SCH ×2 (08:41→16:47)
[2016-08-13] MEDS: Cholecalciferol (D-3) 1,000 UNIT TABLET PO SCH (09:10)
[2016-08-13] MEDS: Insulin LISPRO 300 UNITS/3 ML VIAL SQ SCH ×6 (09:11→22:22)
[2016-08-13] MEDS: Metoprolol XL (24 HR) Succ 25 MG TAB.ER.24H PO SCH (09:26)
--- NOTE | 2016-08-13 09:52 | Infectious Disease Progress No ---
Date of Encounter: 08/13/16 Time of Encounter: 09:48 - Assessment and Plan (1) Sepsis Current Visit: Yes Status: Acute Severe sepsis: The patient had two SIRS criteria plus encephalopathy and thrombocytopenia. Patient continues to have refractory fevers with Tmax 104 despite cooling blanket and tylenol. Thrombocytopenia has resolved. Encephalopathy is improved. Likely secondary to bacteremia and possible right wrist septic arthritis. Blood culture drawn 08/09/16 is positive 1/1 set for MSSA. Repeat cultures drawn 08/10/16 are positive 2/2 sets for MSSA. Repeat blood cultures x 2 sets drawn 08/11/16 are positive again. Repeat blood cultures again x 2 sets now. Qualifiers: Qualified Code(s): A41.01 - Sepsis due to Methicillin susceptible Staphylococcus aureus (2) Bacteremia Current Visit: Yes Status: Acute Source possibly the right wrist septic arthritis/cellulitis. Blood culture drawn 08/09/16 is positive 1/1 set for MSSA. Repeat cultures drawn 08/10/16 are positive 2/2 sets. Additional blood cultures drawn 08/11/16 are also positive 2/2 sets. Repeat blood cultures x 2 sets now. No evidence of endocarditis stigmata on exam. The patient has one major and two minor Modified Sorto's Criteria --> possible IE. TTE negative for valvular dysfunction, although EF is severely diminished. Get DANTE to evaluate for possible [place] valve IE. Given the patient's persistent bacteremia, high index of suspicion. Antibiotics changed from Vanc to Clindamycin by the primary team. Recommend discontinuing IV Clindamycin and re-starting IV Vancomycin. Micafungin added per the primary team - discontinue. Await repeat cultures and DANTE results. Unsure if this is complicated vs. uncomplicated as I have no surgical or medical history on this patient. Will request that family be contacted to go over medical/surgical history. Duration of treatment depends on the clinical picture. Monitor renal function and for drug toxicity. (3) Right wrist pain Current Visit: Yes Status: Acute Erythema, edema, and pain noted to the right wrist. Concern for cellulitis vs. septic arthritis. X-ray negative for bony abnormality. CT of the wrist shows no evidence of septic arthritis. Ortho consulted --> aspiration would likely be unyielding at this point since the patient has been on IV antibiotics. Further management per the ortho service. (4) Metabolic encephalopathy Current Visit: Yes Status: Acute Improved. Likely secondary to sepsis. CT and MRI of the brain are negative. Continue to monitor closely. (5) Diverticulitis Current Visit: Yes Status: Suspected CT of the abdomen and pelvis shows findings consistent with diverticulosis with suspected diverticulitis. Abdominal exam benign. Continue Aztreonam and Flagyl as currently prescribed. May need to consider repeating CT at a later time with oral contrast if the patient is symptomatic. Further management per the primary team. Qualifiers: Qualified Code(s): K57.92 - Diverticulitis of intestine, part unspecified, without perforation or abscess without bleeding (6) Cardiomyopathy Current Visit: Yes Status: Acute TTE showed EF of 30%. Etiology unclear: ischemic vs. stress-induced. Cardiology consulted and following. Qualifiers: Qualified Code(s): I42.9 - Cardiomyopathy, unspecified (7) Elevated troponin Current Visit: Yes Status: Acute Cardiology consulted and following. (8) Hypoxemia Current Visit: Yes Status: Acute Likely secondary to fluid overload. Currently on BIPAP. Management per the primary team. (9) Thrombocytopenia Current Visit: Yes Status: Acute Likely secondary to sepsis. Resolved. No evidence of bleeding noted on exam. Continue to trend. (10) Hyponatremia Current Visit: Yes Status: Acute (11) Urinary incontinence Current Visit: Yes Status: Chronic Qualifiers: Qualified Code(s): R32 - Unspecified urinary incontinence (12) Hypertension Current Visit: Yes Status: Chronic Qualifiers: Qualified Code(s): I10 - Essential (primary) hypertension - Subjective Interval history: Patient seen and examined. Weekend notes reviewed. Patient moved to ICU over the weekend and antibiotics changed by the primary team. Patient continues to have fevers intermittently. Patient awake, alert. Complains of pain in the right wrist, but denies other focal pain. Denies chest pain, shortness of breath , or cough. Denies nausea, vomiting, or constipation. Reports diarrhea. Denies abdominal pain. Requests something to drink, but is currently NPO for DANTE later today. Denies oral thrush or new skin lesions. Infect Dis PN-Objective Data - Labs CBC & Chem 7: 08/13/16 00:47 08/13/16 00:47 Labs: Laboratory Results - last 24 hr 08/11/16 08/12/16 08/12/16 20:40 11:06 15:16 WBC RBC Hgb Hct MCV MCH MCHC RDW Plt Count MPV Immature Gran % Seg Neutrophils % Lymphocytes % Monocytes % Eosinophils % Basophils % Neutrophils # Lymphocytes # Monocytes # Eosinophils # Basophils # Reactive Lymphocytes Platelet Estimate Poikilocytosis Anisocytosis APTT Sodium Potassium Chloride Carbon Dioxide BUN Creatinine Est GFR ( Amer) Est GFR (Non-Af Amer) BUN/Creatinine Ratio Glucose POC Glucose 237 H 204 H Calculated Osmolality Calcium Stl C. cayetanensis PCR Stool Rotavirus A PCR Stl Adenov F 40/41 PCR Stool Astrovirus (PCR) Stool Campylobacter PCR Stl C. diff Tox A/B PCR Stool Cryptosporidium PCR Stl Sh Tox Pr E STEC PCR Stool E coli O157 PCR Stl Enterotoxigenic E PCR Stool EPEC (PCR) Stool EAEC (PCR) Stl E. histolytica PCR Stool Giardia Lamblia PCR Stool Salmonella PCR Stool Sapovirus (PCR) Stl P. shigelloides PCR Stl Shigella/EIEC PCR St Y.enterocolitica PCR Stool Vibrio (PCR) Stl Vibrio cholerae PCR Stl Norovirus GI/GII PCR Stl GI Panel (PCR) Com A. baumannii (PCR) Not Detected Gill albicans (PCR) Not Detected C. glabrata (PCR) Not Detected C. krusei (PCR) Not Detected C. parapsilosis (PCR) Not Detected C. tropicalis (PCR) Not Detected Enterobacteriac sp PCR Not Detected E. cloacae complex PCR Not Detected Enterococcus sp PCR Not Detected E. coli (PCR) Not Detected H. influenzae (PCR) Not Detected Klebsiella oxytoca PCR Not Detected Klebsiella pneumoniae Not Detected List. monocytogenes PCR Not Detected N. meningitidis (PCR) Not Detected Proteus species (PCR) Not Detected Serratia marcescens PCR Not Detected Staphylococcus sp PCR DETECTED A Staph aureus (PCR) DETECTED A mecA-Methicil Res Gene Not Detected Streptococcus sp PCR Not Detected Group A Strep DNA Not Detected Group B Strep (PCR) Not Detected Strep pneumoniae (PCR) Not Detected P. aeruginosa (PCR) Not Detected Batsheva/B-Vanco Res Genes N/A KPC (blaKPC) Detect PCR N/A Specimen Rejected 08/12/16 08/12/16 08/12/16 16:03 17:15 18:09 WBC RBC Hgb Hct MCV MCH MCHC RDW Plt Count MPV Immature Gran % Seg Neutrophils % Lymphocytes % Monocytes % Eosinophils % Basophils % Neutrophils # Lymphocytes # Monocytes # Eosinophils # Basophils # Reactive Lymphocytes Platelet Estimate Poikilocytosis Anisocytosis APTT 43.8 H Sodium 131 L Potassium 3.0 L Chloride 99 Carbon Dioxide 21 BUN 31 H Creatinine 0.68 L Est GFR ( Amer) > 60 Est GFR (Non-Af Amer) > 60 BUN/Creatinine Ratio 46 H Glucose 191 H POC Glucose Calculated Osmolality 284 Calcium 7.3 L D Stl C. cayetanensis PCR Stool Rotavirus A PCR Stl Adenov F 40/41 PCR Stool Astrovirus (PCR) Stool Campylobacter PCR Stl C. diff Tox A/B PCR Stool Cryptosporidium PCR Stl Sh Tox Pr E STEC PCR Stool E coli O157 PCR Stl Enterotoxigenic E PCR Stool EPEC (PCR) Stool EAEC (PCR) Stl E. histolytica PCR Stool Giardia Lamblia PCR Stool Salmonella PCR Stool Sapovirus (PCR) Stl P. shigelloides PCR Stl Shigella/EIEC PCR St Y.enterocolitica PCR Stool Vibrio (PCR) Stl Vibrio cholerae PCR Stl Norovirus GI/GII PCR Stl GI Panel (PCR) Com A. baumannii (PCR) Gill albicans (PCR) C. glabrata (PCR) C. krusei (PCR) C. parapsilosis (PCR) C. tropicalis (PCR) Enterobacteriac sp PCR E. cloacae complex PCR Enterococcus sp PCR E. coli (PCR) H. influenzae (PCR) Klebsiella oxytoca PCR Klebsiella pneumoniae List. monocytogenes PCR N. meningitidis (PCR) Proteus species (PCR) Serratia marcescens PCR Staphylococcus sp PCR Staph aureus (PCR) mecA-Methicil Res Gene Streptococcus sp PCR Group A Strep DNA Group B Strep (PCR) Strep pneumoniae (PCR) P. aeruginosa (PCR) Batsheva/B-Vanco Res Genes KPC (blaKPC) Detect PCR Specimen Rejected Hemolyzed 08/12/16 08/13/16 08/13/16 20:06 00:47 00:47 WBC 9.0 RBC 4.32 Hgb 13.1 Hct 36.9 L MCV 85.4 MCH 30.3 MCHC 35.5 RDW 13.5 Plt Count 166 MPV 11.5 Immature Gran % 1.0 Seg Neutrophils % 78.8 Lymphocytes % 10.3 Monocytes % 9.6 Eosinophils % 0.1 Basophils % 0.2 Neutrophils # 7.1 Lymphocytes # 0.9 Monocytes # 0.9 Eosinophils # 0.0 Basophils # 0.0 Reactive Lymphocytes Present A Platelet Estimate Normal Poikilocytosis 1+ A Anisocytosis 1+ A APTT Sodium 130 L Potassium 3.0 L Chloride 99 Carbon Dioxide 21 BUN 28 H Creatinine 0.68 L Est GFR ( Amer) > 60 Est GFR (Non-Af Amer) > 60 BUN/Creatinine Ratio 41 H Glucose 213 H POC Glucose 210 H Calculated Osmolality 282 Calcium 7.9 L Stl C. cayetanensis PCR Stool Rotavirus A PCR Stl Adenov F PCR Stool Astrovirus (PCR) Stool Campylobacter PCR Stl C. diff Tox A/B PCR Stool Cryptosporidium PCR Stl Sh Tox Pr E STEC PCR Stool E coli O157 PCR Stl Enterotoxigenic E PCR Stool EPEC (PCR) Stool EAEC (PCR) Stl E. histolytica PCR Stool Giardia Lamblia PCR Stool Salmonella PCR Stool Sapovirus (PCR) Stl P. shigelloides PCR Stl Shigella/EIEC PCR St Y.enterocolitica PCR Stool Vibrio (PCR) Stl Vibrio cholerae PCR Stl Norovirus GI/GII PCR Stl GI Panel (PCR) Com A. baumannii (PCR) Gill albicans (PCR) C. glabrata (PCR) C. krusei (PCR) C. parapsilosis (PCR) C. tropicalis (PCR) Enterobacteriac sp PCR E. cloacae complex PCR Enterococcus sp PCR E. coli (PCR) H. influenzae (PCR) Klebsiella oxytoca PCR Klebsiella pneumoniae List. monocytogenes PCR N. meningitidis (PCR) Proteus species (PCR) Serratia marcescens PCR Staphylococcus sp PCR Staph aureus (PCR) mecA-Methicil Res Gene Streptococcus sp PCR Group A Strep DNA Group B Strep (PCR) Strep pneumoniae (PCR) P. aeruginosa (PCR) Batsheva/B-Vanco Res Genes KPC (blaKPC) Detect PCR Specimen Rejected 08/13/16 08/13/16 08/13/16 00:47 01:01 07:22 WBC RBC Hgb Hct MCV MCH MCHC RDW Plt Count MPV Immature Gran % Seg Neutrophils % Lymphocytes % Monocytes % Eosinophils % Basophils % Neutrophils # Lymphocytes # Monocytes # Eosinophils # Basophils # Reactive Lymphocytes Platelet Estimate Poikilocytosis Anisocytosis APTT 50.0 H Sodium Potassium Chloride Carbon Dioxide BUN Creatinine Est GFR ( Amer) Est GFR (Non-Af Amer) BUN/Creatinine Ratio Glucose POC Glucose 214 H Calculated Osmolality Calcium Stl C. cayetanensis PCR Not detected Stool Rotavirus A PCR Not detected Stl Adenov F 40/41 PCR Not detected Stool Astrovirus (PCR) Not detected Stool Campylobacter PCR Not detected Stl C. diff Tox A/B PCR Not detected Stool Cryptosporidium PCR Not detected Stl Sh Tox Pr E STEC PCR Not detected Stool E coli O157 PCR Not detected Stl Enterotoxigenic E PCR Not detected Stool EPEC (PCR) Not detected Stool EAEC (PCR) DETECTED A Stl E. histolytica PCR Not detected Stool Giardia Lamblia PCR Not detected Stool Salmonella PCR Not detected Stool Sapovirus (PCR) Not detected Stl P. shigelloides PCR Not detected Stl Shigella/EIEC PCR Not detected St Y.enterocolitica PCR Not detected Stool Vibrio (PCR) Not detected Stl Vibrio cholerae PCR Not detected Stl Norovirus GI/GII PCR Not detected Stl GI Panel (PCR) Com See below A. baumannii (PCR) Gill albicans (PCR) C. glabrata (PCR) C. krusei (PCR) C. parapsilosis (PCR) C. tropicalis (PCR) Enterobacteriac sp PCR E. cloacae complex PCR Enterococcus sp PCR E. coli (PCR) H. influenzae (PCR) Klebsiella oxytoca PCR Klebsiella pneumoniae List. monocytogenes PCR N. meningitidis (PCR) Proteus species (PCR) Serratia marcescens PCR Staphylococcus sp PCR Staph aureus (PCR) mecA-Methicil Res Gene Streptococcus sp PCR Group A Strep DNA Group B Strep (PCR) Strep pneumoniae (PCR) P. aeruginosa (PCR) Batsheva/B-Vanco Res Genes KPC (blaKPC) Detect PCR Specimen Rejected Cultures: Cultures 08/11/16 11:54 Gram Stain - Final Cerebral Spinal Fluid CSF Culture - Final 08/09/16 22:26 Blood Culture - Final Peripheral Venipuncture Staphylococcus aureus 08/11/16 20:50 Blood Culture - Preliminary Peripheral Venipuncture Gram Positive Cocci 08/11/16 20:40 Blood Culture - Preliminary Peripheral Venipuncture Gram Positive Cocci 08/10/16 00:55 Blood Culture - Final Peripheral Venipuncture Staphylococcus aureus 08/10/16 01:00 Blood Culture - Final Peripheral Venipuncture Staphylococcus aureus 08/11/16 11:54 Cryptococcal Antigen - Final Cerebral Spinal Fluid Serology 08/13/16 08/11/16 08/11/16 Range/Units 01:01 20:40 11:54 Fluid Source Fluid Volume Fluid Appearance Fluid RBC Fld Tot Nucleated Cell Fluid Seg Neutrophil % Fld Band Neutrophil % Fluid Lymphocytes % Fluid Monocytes % Fluid Eosinophils % Fluid Basophils % Fluid Other Cells % CSF Volume 8.0 mL CSF Appearance Clear (Clear) CSF Color Colorless (Colorless) CSF RBC < 0 L (0-1) RBC/mcL CSF Tot Nucleated Cells 3 (0-5) TNC/mcL CSF Seg Neutrophils TNP CSF Band Neutrophils % TNP CSF Lymphocytes % TNP CSF Monocytes % TNP CSF Eosinophils % TNP CSF Basophils % TNP CSF Other Cells % TNP CSF Glucose TNP CSF Xanth Comm Not Observed (Not Observe) CSF Total Protein TNP Stl C. cayetanensis PCR Not detected (Not detect) Stool Rotavirus A PCR Not detected (Not detect) Stl Adenov F 40/41 PCR Not detected (Not detect) Stool Astrovirus (PCR) Not detected (Not detect) Stool Campylobacter PCR Not detected (Not detect) Stl C. diff Tox A/B PCR Not detected (Not detect) Stool Cryptosporidium PCR Not detected (Not detect) Stl Sh Tox Pr E STEC PCR Not detected (Not detect) Stool E coli O157 PCR Not detected (Not detect) Stl Enterotoxigenic E PCR Not detected (Not detect) Stool EPEC (PCR) Not detected (Not detect) Stool EAEC (PCR) DETECTED A (Not detect) Stl E. histolytica PCR Not detected (Not detect) Stool Giardia Lamblia PCR Not detected (Not detect) Stool Salmonella PCR Not detected (Not detect) Stool Sapovirus (PCR) Not detected (Not detect) Stl P. shigelloides PCR Not detected (Not detect) Stl Shigella/EIEC PCR Not detected (Not detect) St Y.enterocolitica PCR Not detected (Not detect) Stool Vibrio (PCR) Not detected (Not detect) Stl Vibrio cholerae PCR Not detected (Not detect) Stl Norovirus GI/GII PCR Not detected (Not detect) Stl GI Panel (PCR) Com See below A. baumannii (PCR) Not Detected (Not Detect) Chlamy pneumoniae PCR (Not Detect) Adenovirus (PCR) (Not Detect) B. pertussis DNA (PCR) (Not Detect) Gill albicans (PCR) Not Detected (Not Detect) C. glabrata (PCR) Not Detected (Not Detect) C. krusei (PCR) Not Detected (Not Detect) C. parapsilosis (PCR) Not Detected (Not Detect) C. tropicalis (PCR) Not Detected (Not Detect) Coronavirus OC43 (PCR) (Not Detect) Coronavirus HKU1 (PCR) (Not Detect) Coronavirus 229E (PCR) (Not Detect) Coronavirus NL63 (PCR) (Not Detect) Enterobacteriac sp PCR Not Detected (Not Detect) E. cloacae complex PCR Not Detected (Not Detect) Enterococcus sp PCR Not Detected (Not Detect) E. coli (PCR) Not Detected (Not Detect) H. influenzae (PCR) Not Detected (Not Detect) HIV Ag/Ab Combo Qual (Nonreactive) Human Metapneumovirus (Not Detect) Influenza A (H1) PCR (Not Detect) Influ A (H1N1/09) PCR (Not Detect) Influenza A (H3) PCR (Not Detect) Influenza A Untype (PCR) (Not Detect) Influenza Type B (PCR) (Not Detect) Klebsiella oxytoca PCR Not Detected (Not Detect) Klebsiella pneumoniae Not Detected (Not Detect) List. monocytogenes PCR Not Detected (Not Detect) M.pneumoniae DNA (PCR) (Not Detect) N. meningitidis (PCR) Not Detected (Not Detect) Parainfluenza 1 (PCR) (Not Detect) Parainfluenza 2 (PCR) (Not Detect) Parainfluenza 3 (PCR) (Not Detect) Parainfluenza 4 (PCR) (Not Detect) Proteus species (PCR) Not Detected (Not Detect) RSV (PCR) (Not Detect) Entero/Rhino (PCR) (Not Detect) Serratia marcescens PCR Not Detected (Not Detect) Staphylococcus sp PCR DETECTED A (Not Detect) Staph aureus (PCR) DETECTED A (Not Detect) mecA-Methicil Res Gene Not Detected (Not Detect) Streptococcus sp PCR Not Detected (Not Detect) Group A Strep DNA Not Detected (Not Detect) Group B Strep (PCR) Not Detected (Not Detect) Strep pneumoniae (PCR) Not Detected (Not Detect) P. aeruginosa (PCR) Not Detected (Not Detect) Batsheva/B-Vanco Res Genes N/A (Not Detect) KPC (blaKPC) Detect PCR N/A (Not Detect) 08/11/16 08/09/16 08/09/16 Range/Units 11:54 22:26 19:53 Fluid Source Test Not Performed Fluid Volume Test Not Performed Fluid Appearance Test Not Performed Fluid RBC TNP Fld Tot Nucleated Cell TNP Fluid Seg Neutrophil % Test Not Performed Fld Band Neutrophil % Test Not Performed Fluid Lymphocytes % Test Not Performed Fluid Monocytes % Test Not Performed Fluid Eosinophils % Test Not Performed Fluid Basophils % Test Not Performed Fluid Other Cells % Test Not Performed CSF Volume mL CSF Appearance (Clear) CSF Color (Colorless) CSF RBC (0-1) RBC/mcL CSF Tot Nucleated Cells (0-5) TNC/mcL CSF Seg Neutrophils CSF Band Neutrophils % CSF Lymphocytes % CSF Monocytes % CSF Eosinophils % CSF Basophils % CSF Other Cells % CSF Glucose CSF Xanth Comm (Not Observe) CSF Total Protein Stl C. cayetanensis PCR (Not detect) Stool Rotavirus A PCR (Not detect) Stl Adenov F 40/41 PCR (Not detect) Stool Astrovirus (PCR) (Not detect) Stool Campylobacter PCR (Not detect) Stl C. diff Tox A/B PCR (Not detect) Stool Cryptosporidium PCR (Not detect) Stl Sh Tox Pr E STEC PCR (Not detect) Stool E coli O157 PCR (Not detect) Stl Enterotoxigenic E PCR (Not detect) Stool EPEC (PCR) (Not detect) Stool EAEC (PCR) (Not detect) Stl E. histolytica PCR (Not detect) Stool Giardia Lamblia PCR (Not detect) Stool Salmonella PCR (Not detect) Stool Sapovirus (PCR) (Not detect) Stl P. shigelloides PCR (Not detect) Stl Shigella/EIEC PCR (Not detect) St Y.enterocolitica PCR (Not detect) Stool Vibrio (PCR) (Not detect) Stl Vibrio cholerae PCR (Not detect) Stl Norovirus GI/GII PCR (Not detect) Stl GI Panel (PCR) Com A. baumannii (PCR) Not Detected (Not Detect) Chlamy pneumoniae PCR Not Detected (Not Detect) Adenovirus (PCR) Not Detected (Not Detect) B. pertussis DNA (PCR) Not Detected (Not Detect) Gill albicans (PCR) Not Detected (Not Detect) C. glabrata (PCR) Not Detected (Not Detect) C. krusei (PCR) Not Detected (Not Detect) C. parapsilosis (PCR) Not Detected (Not Detect) C. tropicalis (PCR) Not Detected (Not Detect) Coronavirus OC43 (PCR) Not Detected (Not Detect) Coronavirus HKU1 (PCR) Not Detected (Not Detect) Coronavirus 229E (PCR) Not Detected (Not Detect) Coronavirus NL63 (PCR) Not Detected (Not Detect) Enterobacteriac sp PCR Not Detected (Not Detect) E. cloacae complex PCR Not Detected (Not Detect) Enterococcus sp PCR Not Detected (Not Detect) E. coli (PCR) Not Detected (Not Detect) H. influenzae (PCR) Not Detected (Not Detect) HIV Ag/Ab Combo Qual (Nonreactive) Human Metapneumovirus Not Detected (Not Detect) Influenza A (H1) PCR Not Detected (Not Detect) Influ A (H1N1/09) PCR Not Detected (Not Detect) Influenza A (H3) PCR Not Detected (Not Detect) Influenza A Untype (PCR) Not Detected (Not Detect) Influenza Type B (PCR) Not Detected (Not Detect) Klebsiella oxytoca PCR Not Detected (Not Detect) Klebsiella pneumoniae Not Detected (Not Detect) List. monocytogenes PCR Not Detected (Not Detect) M.pneumoniae DNA (PCR) Not Detected (Not Detect) N. meningitidis (PCR) Not Detected (Not Detect) Parainfluenza 1 (PCR) Not Detected (Not Detect) Parainfluenza 2 (PCR) Not Detected (Not Detect) Parainfluenza 3 (PCR) Not Detected (Not Detect) Parainfluenza 4 (PCR) Not Detected (Not Detect) Proteus species (PCR) Not Detected (Not Detect) RSV (PCR) Not Detected (Not Detect) Entero/Rhino (PCR) Not Detected (Not Detect) Serratia marcescens PCR Not Detected (Not Detect) Staphylococcus sp PCR DETECTED A (Not Detect) Staph aureus (PCR) DETECTED A (Not Detect) mecA-Methicil Res Gene Not Detected (Not Detect) Streptococcus sp PCR Not Detected (Not Detect) Group A Strep DNA Not Detected (Not Detect) Group B Strep (PCR) Not Detected (Not Detect) Strep pneumoniae (PCR) Not Detected (Not Detect) P. aeruginosa (PCR) Not Detected (Not Detect) Batsheva/B-Vanco Res Genes N/A (Not Detect) KPC (blaKPC) Detect PCR N/A (Not Detect) 08/09/16 Range/Units 18:57 Fluid Source Fluid Volume Fluid Appearance Fluid RBC Fld Tot Nucleated Cell Fluid Seg Neutrophil % Fld Band Neutrophil % Fluid Lymphocytes % Fluid Monocytes % Fluid Eosinophils % Fluid Basophils % Fluid Other Cells % CSF Volume mL CSF Appearance (Clear) CSF Color (Colorless) CSF RBC (0-1) RBC/mcL CSF Tot Nucleated Cells (0-5) TNC/mcL CSF Seg Neutrophils CSF Band Neutrophils % CSF Lymphocytes % CSF Monocytes % CSF Eosinophils % CSF Basophils % CSF Other Cells % CSF Glucose CSF Xanth Comm (Not Observe) CSF Total Protein Stl C. cayetanensis PCR (Not detect) Stool Rotavirus A PCR (Not detect) Stl Adenov F 40/41 PCR (Not detect) Stool Astrovirus (PCR) (Not detect) Stool Campylobacter PCR (Not detect) Stl C. diff Tox A/B PCR (Not detect) Stool Cryptosporidium PCR (Not detect) Stl Sh Tox Pr E STEC PCR (Not detect) Stool E coli O157 PCR (Not detect) Stl Enterotoxigenic E PCR (Not detect) Stool EPEC (PCR) (Not detect) Stool EAEC (PCR) (Not detect) Stl E. histolytica PCR (Not detect) Stool Giardia Lamblia PCR (Not detect) Stool Salmonella PCR (Not detect) Stool Sapovirus (PCR) (Not detect) Stl P. shigelloides PCR (Not detect) Stl Shigella/EIEC PCR (Not detect) St Y.enterocolitica PCR (Not detect) Stool Vibrio (PCR) (Not detect) Stl Vibrio cholerae PCR (Not detect) Stl Norovirus GI/GII PCR (Not detect) Stl GI Panel (PCR) Com A. baumannii (PCR) (Not Detect) Chlamy pneumoniae PCR (Not Detect) Adenovirus (PCR) (Not Detect) B. pertussis DNA (PCR) (Not Detect) Gill albicans (PCR) (Not Detect) C. glabrata (PCR) (Not Detect) C. krusei (PCR) (Not Detect) C. parapsilosis (PCR) (Not Detect) C. tropicalis (PCR) (Not Detect) Coronavirus OC43 (PCR) (Not Detect) Coronavirus HKU1 (PCR) (Not Detect) Coronavirus 229E (PCR) (Not Detect) Coronavirus NL63 (PCR) (Not Detect) Enterobacteriac sp PCR (Not Detect) E. cloacae complex PCR (Not Detect) Enterococcus sp PCR (Not Detect) E. coli (PCR) (Not Detect) H. influenzae (PCR) (Not Detect) HIV Ag/Ab Combo Qual Nonreactive (Nonreactive) Human Metapneumovirus (Not Detect) Influenza A (H1) PCR (Not Detect) Influ A (H1N1/09) PCR (Not Detect) Influenza A (H3) PCR (Not Detect) Influenza A Untype (PCR) (Not Detect) Influenza Type B (PCR) (Not Detect) Klebsiella oxytoca PCR (Not Detect) Klebsiella pneumoniae (Not Detect) List. monocytogenes PCR (Not Detect) M.pneumoniae DNA (PCR) (Not Detect) N. meningitidis (PCR) (Not Detect) Parainfluenza 1 (PCR) (Not Detect) Parainfluenza 2 (PCR) (Not Detect) Parainfluenza 3 (PCR) (Not Detect) Parainfluenza 4 (PCR) (Not Detect) Proteus species (PCR) (Not Detect) RSV (PCR) (Not Detect) Entero/Rhino (PCR) (Not Detect) Serratia marcescens PCR (Not Detect) Staphylococcus sp PCR (Not Detect) Staph aureus (PCR) (Not Detect) mecA-Methicil Res Gene (Not Detect) Streptococcus sp PCR (Not Detect) Group A Strep DNA (Not Detect) Group B Strep (PCR) (Not Detect) Strep pneumoniae (PCR) (Not Detect) P. aeruginosa (PCR) (Not Detect) Batsheva/B-Vanco Res Genes (Not Detect) KPC (blaKPC) Detect PCR (Not Detect) Exam - Constitutional Vitals: Temp Pulse Resp BP Pulse Ox 100.0 F H 81 27 162/84 97 08/13/16 08:21 08/13/16 09:00 08/13/16 09:00 08/13/16 09:00 08/13/16 09:00 General appearance: average body habitus, cooperative, no acute distress - Head Head exam: Present: atraumatic, normal inspection, normocephalic - Eye Eye exam: Present: EOMI, normal appearance, PERRL Pupils: Present: normal accommodation Additional comments: No subconjunctival hemorrhage noted. - ENT ENT exam: Present: mucous membranes dry - Neck Neck exam: Present: normal inspection - Respiratory Respiratory exam: Present: CTAB. Absent: rales, respiratory distress, rhonchi, wheezes - Cardiovascular Cardiovascular exam: Present: irregular rhythm. Absent: tachycardia - GI/Abdominal GI/Abdominal exam: Present: normal bowel sounds, soft. Absent: distended, tenderness Additional comments: Chavez catheter noted to be draining clear, blood-tinged yellow urine. - Extremities Exam Extremities exam: Present: joint swelling (Right wrist), normal capillary refill , tenderness (right wrist). Absent: normal inspection, pedal edema Additional comments: No endocarditis stigmata noted. Right wrist remains warm and swollen and painful. Erythema improved, but still slightly red. - Neurological Exam Neurological exam: Present: alert, oriented X3. Absent: facial droop Additional comments: A/O x 3, but intermittently says inappropriate things. - Psychiatric Psychiatric exam: Present: normal affect, normal mood - Skin Skin exam: Present: dry, intact, normal color, warm - VTE Documentation of Mechanical Device: Intermittent pneumatic compression device Consult Discharge Plan - Plan [facility]: [facility] [Primary Care Provider[facility] -
[2016-08-13] MEDS ORDERED: Vancomycin 1,250 MG in D5% in Water 250 ML IVPB SCH (10:00)
--- NOTE | 2016-08-13 11:09 | Event Note ---
Date of Encounter: 08/13/16 Time of Encounter: 11:09 - Cardiology Event Note Staph aureus sepsis: Source unknown. Blood c/s 3 grew Staph, pt remains febrile. Echocardiogram from 08/09 negative for any vegetations. On antibiotics, but concern for cardiac source. Plan for DANTE today to further evaluate. R/B/A discussed and pt agreeable. Converted to NSR. Atrial fibrillation seen during stay. Now on metoprolol. He is a CHADS VASc=3 for age, DM, and HTN. Will discuss anticoagulation after DANTE. Currently a increased fall risk d/t debilitation/weakness. EF 30 % on echo, recommend repeating echocardiogram once sepsis resolves, prior to d/c. Developed fluid overload after receiving IV fluid. Continue lasix as needed.
[2016-08-13] MEDS ORDERED: Vancomycin 2,000 MG in D5% in Water 500 ML IVPB ONE (11:26)
[2016-08-13] MEDS ORDERED: Acetaminophen 650 MG RECTAL SUPP RC PRN (14:51)
[2016-08-13] MEDS ORDERED: *HR* Heparin 5,000 UNIT/ML VIAL IVP ONE (15:12)
[2016-08-13] MEDS ORDERED: *HR* Heparin 5,000 UNIT/ML VIAL IVP PRN (15:12)
[2016-08-13] MEDS: Heparin 25,000 UNIT/500 ML D5W 25,000 UNIT/500 ML MLS IVC SCH (15:27)
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
[2016-08-13] MEDS ORDERED: Metoprolol XL (24 HR) Succ 25 MG TAB.ER.24H PO SCH (16:30)
[2016-08-13] MEDS: Ibuprofen 600 MG TABLET PO PRN (16:46)
[2016-08-13] MEDS ORDERED: Metoprolol XL (24 HR) Succ 25 MG TAB.ER.24H PO ONE (17:30)
--- NOTE | 2016-08-13 20:07 | Orthopedics Progress Note ---
Date of Encounter: 08/13/16 Time of Encounter: 20:00 Subjective Principal diagnosis: MSSA bacteremia, DKA, CMP-EF 30% Interval history: Patient is seen in follow-up regarding his right wrist. He remains confused. and daughter are here and I was able to obtain some further history from them. They tell me the patient has had several falls most being about a week ago. He also has been having some pain in the wrist since those recent falls. He also states that the patient has had numerous episodes of "sugar boils" on his legs. [facility] Vital signs are stable. He does have a temperature of 100.9 rectal. Wrist looks about the same. There is no significant edema. There is some mild erythema. Blood cell count remains normal at 10.1. Hemoglobin is stable at 14.3. Platelet count remained stable at 111. Impression: MSSA bacteremia, questionable infection right wrist Recommendation: I do not see the need to proceed with a aspiration of the wrist , patient has been on intravenous antibiotics for a period time and this would probably have sterilized the fluid if any would be aspirated. I do not think this would alter our treatment unless we can prove a joint infection. We will continue to monitor his clinical status and make any further recommendations pending clinical or other findings. 08/13/2016. Patient is seen in follow-up regarding the right wrist. He appears more lucid today. He states that he still having some pain in the wrist. I am unable to obtain adequate history as to how long has wrist has been bothering him for this current episode. He denies any previous surgery on the wrist. Been trying to use an move the fingers recently. Vital signs continue to show elevated temperature of 101.4 rectal. The wrist appears to be somewhat more edematous. There are skin wrinkles. There is no definitive effusion. There appears to be swelling distal to a compression dressing on the forearm from what appears to be a previous blood draw. Sensory exam remains intact. Blood blood cell count is normal. Hemoglobin is stable. Repeat blood cultures continue to grow gram-positive cocci presumably MSSA. I reviewed recently completed CT scan of the wrist. This continues to show degenerative changes at multiple levels and locations. There are numerous small cystic changes within the carpal bones as well as arthritic changes. The are no evidence of osseous destruction, cortical changes etc. that would be suggestive of an underlying osteomyelitis. No evidence of significant effusion. Impression: MSSA bacteremia, source unclear Recommendation: I do not think aspiration is helpful if even possible due to the lack of fluid accumulation within the wrist joint proper. WBC scan may be best option to identify possible source, MRI of the wrist would be helpful if that area is involved in the WBC scan. As previously noted, a spontaneous infection in a joint in an adult is unusual even though the patient has risk factors. The intravenous antibiotics given thus far should have cleared or sterilized the wrist joint and I do not see evidence of a osteomyelitis involving the carpal bones proper. We will continue to follow with you. Objective Vital signs: Vital Signs Temp Pulse Resp BP Pulse Ox 08/13/16 18:00 115 25 147/94 95 08/13/16 17:25 101.4 F H 08/13/16 17:00 102 26 172/83 96 08/13/16 16:00 95 25 174/98 95 08/13/16 15:10 106 24 167/95 94 L 08/13/16 14:00 96 24 156/87 96 08/13/16 13:00 91 25 150/82 94 L 08/13/16 12:21 100.8 F H 08/13/16 12:00 78 26 153/85 95 08/13/16 11:00 88 26 144/87 95 08/13/16 10:00 78 26 154/82 96 08/13/16 09:00 81 27 162/84 97 08/13/16 08:21 100.0 F H 08/13/16 08:00 78 26 155/84 95 08/13/16 06:00 99.7 F H 78 30 148/81 96 08/13/16 05:00 99.5 F 77 17 150/83 96 08/13/16 04:14 100.1 F H 08/13/16 04:00 99.7 F H 77 27 134/81 95 08/13/16 03:00 101.1 F H 84 30 134/85 95 08/13/16 02:00 101.1 F H 83 30 154/107 95 08/13/16 01:00 100.9 F H 87 30 107/95 95 08/13/16 00:35 101.1 F H 08/13/16 00:00 101.1 F H 100 30 159/94 95 08/12/16 23:00 101.1 F H 100 30 143/86 95 08/12/16 22:00 100.7 F H 84 30 143/82 95 08/12/16 21:00 81 28 151/80 95 08/12/16 20:37 99.3 F Intake and Output 08/13/16 08/13/16 08/13/16 07:59 15:59 23:59 Intake Total 1651 / 1651 870 / 870 200 / 200 Output Total 900 / 900 2300 / 2300 650 / 650 Balance 751 / 751 -1430 / -1430 -450 / -450 Intake: IV Fluids 1651 / 1651 870 / 870 200 / 200 0.9 % Sodium Chloride 1, 1000 / 1000 450 / 450 000 ML @ 200 mls/hr IVC . Q5H [facility] Rx#:[id number] Cardizem 125 MG In 60 / 60 Dextrose 5% 100 ML @ 10 MG/HR 10 mls/hr IVC . [id number] [facility] Rx#: [id number] Heparin 25,000 UNIT/500 301 / 301 0 / 0 ML D5W 25,000 unit In 500 ml @ 14 UNIT/KG/HR 26. 768 mls/hr IVC .[id number] [facility] Rx#:[id number] Azactam 1,000 MG In 100 / 100 100 / 100 100 / 100 Dextrose 5% (Minibag+) 100 ML 100 ML @ 200 mls/ hr IVPB Q8HR [facility] Rx#: [id number] Cleocin 600 MG/50 ML 600 50 / 50 50 / 50 mg In 50 ml @ 50 mls/hr IVPB Q8HR [facility] Rx#: [id number] Flagyl 500 MG/100 ML 500 100 / 100 100 / 100 100 / 100 mg In 100 ml @ 100 mls/hr IVPB Q8HR [facility] Rx#: [id number] Potassium Chloride 10 mEq 100 / 100 /100mL 10 meq In 100 ml @ 100 mls/hr IVPB Q1H PRN Rx#:[id number] Output: Catheter 900 / 900 2300 / 2300 650 / 650 Other: Stool Size Moderate Stool Consistency liquid Stool Color Green # Bowel Movements 1 Weight 91.3 kg Blood Glucose* 233 208 Patient Weight 08/13/16 23:59 Weight 91.3 kg - Labs CBC & BMP: 08/13/16 00:47 08/13/16 00:47 Labs: Abnormal lab results Hct 36.9 % (37.5-50.1) L 08/13/16 00:47 Band Neutrophils % 8.0 % (0-4) H 08/12/16 03:24 Hyposegmented Neuts Present (Not Present) A 08/10/16 01:00 Reactive Lymphocytes Present (Not Present) A 08/13/16 00:47 Toxic Granulation Present (Not Present) A 08/12/16 03:24 Dohle Bodies Present (Not Present) A 08/12/16 03:24 Immature Plt Fraction 7.2 % (1.1-6.1) H 08/09/16 22:26 Poikilocytosis 1+ (Not Present) A 08/13/16 00:47 Anisocytosis 1+ (Not Present) A 08/13/16 00:47 PT 15.6 Seconds (9.4-12.1) H 08/09/16 18:51 APTT 50.0 Seconds (26.0-36.0) H 08/13/16 00:47 D-Dimer 4758 ng/mLFEU (0-500) H 08/09/16 12:47 ABG pH 7.46 pH Units (7.32-7.45) H 08/10/16 10:25 ABG pCO2 29 mmHg (35-45) L 08/10/16 10:25 ABG pO2 62 mmHg (85-104) L 08/10/16 10:25 ABG HCO3 20.6 mEQ/L (21-27) L 08/10/16 10:25 ABG O2 Saturation 93 % (95-98) L 08/10/16 10:25 ABG Base Excess -2.2 mEq/L (-2.0 to 3.0) L 08/10/16 10:25 VBG pH 7.52 pH Units (7.32-7.42) H 08/10/16 01:00 VBG pCO2 24 mmHg (41-51) L 08/10/16 01:00 VBG pO2 84 mmHg (25-40) H 08/10/16 01:00 VBG HCO3 19.6 mEq/L (21-27) L 08/10/16 01:00 Sodium 130 mEq/L (136-145) L 08/13/16 00:47 Potassium 3.0 mEq/L (3.5-4.5) L 08/13/16 00:47 BUN 28 mg/dL (8-26) H 08/13/16 00:47 Creatinine 0.68 mg/dL (0.72-1.25) L 08/13/16 00:47 BUN/Creatinine Ratio 41 (6-26) H 08/13/16 00:47 Glucose 213 mg/dL (70-99) H 08/13/16 00:47 POC Glucose 208 (58-89) H 08/13/16 16:19 Hemoglobin A1c 8.3 % (-5.6) H 08/09/16 12:47 Calcium 7.9 mg/dL (8.6-10.8) L 08/13/16 00:47 Ionized Calcium 0.96 mmol/L (1.15-1.35) L 08/11/16 05:44 Ferritin 3440 ng/ml (22-275) H 08/12/16 03:24 AST 40 Units/L (5-34) H 08/09/16 02:10 Creatine Kinase 294 Units/L (30-200) H 08/09/16 02:10 Troponin I 0.17 ng/mL (0-0.03) H* 08/09/16 12:47 C-Reactive Protein 269 mg/L (Less than 5) H 08/09/16 12:47 Albumin 3.4 g/dL (3.5-5.0) L 08/09/16 02:10 Globulin 4.0 g/dL (2.4-3.5) H 08/09/16 02:10 Albumin/Globulin Ratio 0.9 (1.1-2.2) L 08/09/16 02:10 Beta-Hydroxybutyric Acd 1.33 mmol/L (0.02-0.27) H 08/09/16 12:47 Ur Specific [place] > 1.030 (1.010-1.025) H 08/09/16 06:14 Urine Protein 100 mg/dL (Neg-Trace) H 08/09/16 06:14 Urine Glucose (UA) >=1000 mg/dL (Normal) H 08/09/16 06:14 Urine Ketones 40 mg/dL (Negative) H 08/09/16 06:14 Urine Blood Large (Negative) H 08/09/16 06:14 Urine Microscopic RBC 5-15 per hpf (0-3) H 08/09/16 06:14 Urine Microscopic WBC 3-5 per hpf (0-3) H 08/09/16 06:14 Ur Squamous Epith Cells Moderate per lpf (None-Few) H 08/09/16 06:14 CSF RBC < 0 RBC/mcL (0-1) L 08/11/16 11:54 Stool EAEC (PCR) DETECTED (Not detect) A 08/13/16 01:01 Vancomycin Trough 8.9 mcg/mL (10-20) L 08/11/16 13:05 Staphylococcus sp PCR DETECTED (Not Detect) A 08/11/16 20:40 Staph aureus (PCR) DETECTED (Not Detect) A 08/11/16 20:40 - VTE Documentation of Mechanical Device: Intermittent pneumatic compression device Consult Discharge Plan - Plan [facility]: [facility] [Primary Care Provider] -
[2016-08-14] MEDS: *HR* Heparin 5,000 UNIT/ML VIAL IVP PRN ×2 (00:47→07:05)
[2016-08-14] MEDS: Vancomycin 1,500 MG in D5% in Water 250 ML IVPB SCH ×2 (00:48→11:41)
[2016-08-14] MEDS: MetroNIDAZOLE 500 MG/100 ML 500 MG/100 ML BAG IVPB SCH ×3 (00:49→18:17)
[2016-08-14] MEDS: Aztreonam 1,000 MG in D5% in Water (Mini-Bag+) 100 ML IVPB SCH ×2 (00:50→08:11)
[2016-08-14 06:14] LABS: Basophils % 0.3 %; Eosinophils % 0.3 %; Hematocrit 35.8 % (37.5-50.1); Hemoglobin 12.5 g/dL (12.9-16.9); Immature Granulocytes % 2.6 % (0-4); Lymphocytes # 1.1 K/mcL (0.6-4.6); Mean Corpuscular HGB Conc 34.9 g/dL (31.6-35.5); Mean Corpuscular Volume 86.1 fL (83.0-100.0); Mean Platelet Volume 11.1 fL (9.4-12.4); Monocytes # 0.9 K/mcL (0.0-1.3); Monocytes % 12.6 %; Platelet Count 191 K/mcL (140-400); Red Blood Count 4.16 M/mcL (4.19-5.50); Red Cell Distribution Width 13.5 % (11.5-14.5); Segmented Neutrophils % 69.2 %
[2016-08-14 06:16] LABS: Neutrophils # 5.1 K/mcL (1.6-8.9)
[2016-08-14 06:24] LABS: BUN/Creatinine Ratio 30 (6-26); Blood Urea Nitrogen 19 mg/dL (8-26); Calcium 7.8 mg/dL (8.6-10.8); Carbon Dioxide 24 mEq/L (19-29); Chloride 101 mEq/L (98-109); Glucose 240 mg/dL (70-99); Osmolality,Calculated 290 (280-300); Sodium 135 mEq/L (136-145); eGFR For African Americans > 60 (> 60); eGFR For Non-African Americans > 60 (> 60)
[2016-08-14 06:30] LABS: Potassium 2.5 mEq/L (3.5-4.5)
[2016-08-14] MEDS ORDERED: Potassium Chloride 40 MEQ, Lidocaine 1% 2 ML in D5% in Water 500 ML IVPB ONE ×2 (06:48→14:27)
[2016-08-14 06:49] LABS: Platelet Estimate Normal (Normal); Reactive Lymphocytes Present (Not Present)
[2016-08-14] MEDS: Heparin 25,000 UNIT/500 ML D5W 25,000 UNIT/500 ML MLS IVC SCH (06:59)
[2016-08-14] MEDS: 0.9 % Sodium Chloride 1,000 ML IVC SCH (07:07)
[2016-08-14] MEDS: Insulin LISPRO 300 UNITS/3 ML VIAL SQ SCH ×7 (08:03→22:56)
[2016-08-14] MEDS: Aspirin 81 MG TAB.CHEW PO SCH (08:09)
[2016-08-14] MEDS: Furosemide 40 MG/4 ML VIAL IVP SCH (08:10)
[2016-08-14] MEDS: Cholecalciferol (D-3) 1,000 UNIT TABLET PO SCH (08:12)
[2016-08-14] MEDS ORDERED: Lidocaine Viscous Oral Soln 15 ML SOLUTION ONE (08:35)
[2016-08-14] MEDS ORDERED: *HR* Midazolam HCl 2 MG/2 ML VIAL ONE (08:36)
[2016-08-14] MEDS ORDERED: *HR* FentaNYL (PF) 100 MCG/2 ML VIAL ONE (08:36)
[2016-08-14] MEDS ORDERED: Metoprolol XL (24 HR) Succ 50 MG TAB.ER.24H PO SCH ×2 (09:00→21:00)
[2016-08-14] MEDS ORDERED: *HR* Midazolam HCl 2 MG/2 ML VIAL IVP ONE (09:09)
--- NOTE | 2016-08-14 09:09 | Pre-Sedation Evaluation ---
Pre-sedation evaluation - Pre-sedation checklist Date of procedure: 08/14/16 Procedure: [facility] Recent Vitals: Last Vital Signs Temp 97.8 F 08/14/16 07:44 Pulse 78 08/14/16 08:41 Resp 24 08/14/16 08:41 BP 151/80 08/14/16 08:41 Pulse Ox 94 L 08/14/16 08:00 H&P (including ROS) documented in medical record: Yes Previous reaction to sedatives/anesthetics: No Dietary Status: NPO after Midnight Airway Assessment: Patient can open mouth completely, TMJ function normal Dentition: No loose teeth or bridges ASA Classification *see protocol: CLASS II-Mild systemic disease Plan of Care: Pt appropriate candidate for procedure/moderate/conscious sedation , Risks/benefits of procedure/sedation discussed w/ patient/family
[2016-08-14] MEDS ORDERED: *HR* FentaNYL (PF) 100 MCG/2 ML VIAL IVP ONE (09:10)
[2016-08-14] MEDS ORDERED: Lidocaine Viscous Oral Soln 15 ML SOLUTION MM ONE (09:20)
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
[2016-08-14] MEDS ORDERED: Insulin DETEMIR 100 UNIT/ML X5UNITS SQ SCH (09:37)
--- NOTE | 2016-08-14 10:19 | Infectious Disease Progress No ---
Date of Encounter: 08/14/16 Time of Encounter: 10:16 - Assessment and Plan (1) Sepsis Current Visit: Yes Status: Acute Severe sepsis: The patient had two SIRS criteria plus encephalopathy and thrombocytopenia. Patient has been afebrile for >12 hours. Thrombocytopenia has resolved. Encephalopathy is improved. Likely secondary to bacteremia and endocarditis. Blood culture drawn 08/09/16 is positive 1/1 set for MSSA. Repeat cultures drawn 08/10/16 are positive 2/2 sets for MSSA. Repeat blood cultures x 2 sets drawn 08/11/16 are positive again. Repeat blood cultures drawn 08/13/16 are positive 1/2 sets. Repeat additional set of blood cultures in the AM x 2 sets. Qualifiers: Sepsis type: methicillin susceptible Staphylococcus aureus Qualified Code(s ): A41.01 - Sepsis due to Methicillin susceptible Staphylococcus aureus (2) Bacteremia Current Visit: Yes Status: Acute Blood culture drawn 08/09/16 is positive 1/1 set for MSSA. Repeat cultures drawn 08/10/16 are positive 2/2 sets. Additional blood cultures drawn 08/11/16 are also positive 2/2 sets. Repeat blood cultures drawn 08/13/16 are positive 1/2 sets again. The patient has two major and two minor Modified Sorto's Criteria --> definitive IE. TTE negative for valvular dysfunction, DANTE completed 08/14/16 shows vegetation on the mitral valve. Continue Vancomycin IV for now. PCN allergy testing in process per Dr. Jimenez. If positive, will need to do trial doses of keflex to evaluate for cephalosporin allergy. If negative, will plan to switch to cefazolin 2 grams IV Q8H plus Gentamicin 1mg/kg IV Q8H for 5 days. Await repeat cultures. Duration of treatment depends on the clinical picture, but will require 6 weeks of IV antibiotic due to IE. Monitor renal function and for drug toxicity. (3) Endocarditis Current Visit: Yes Status: Acute Status post DANTE this morning that showed small echodensity on the mitral valve that is concerning for vegetation. Likely the source of the patient's persistent bacteremia and fevers. The patient has two major and one minor Modified Sorto's Criteria --> definitive IE. Continue antibiotics as above. Duration of treatment depends on the clinical picture, but likely 6 weeks of IV antibiotics. Repeat DANTE post-treatment. Qualifiers: Endocarditis type: infective Infective endocarditis organism: bacterial Chronicity: acute Qualified Code(s): I33.0 - Acute and subacute infective endocarditis (4) Right wrist pain Current Visit: Yes Status: Acute Erythema, edema, and pain noted to the right wrist. Concern for cellulitis vs. septic arthritis. X-ray negative for bony abnormality. CT of the wrist shows no evidence of septic arthritis. Ortho consulted --> aspiration would likely be unyielding at this point since the patient has been on IV antibiotics. Further management per the ortho service. (5) Metabolic encephalopathy Current Visit: Yes Status: Acute Improved. Likely secondary to sepsis. CT and MRI of the brain are negative. Continue to monitor closely. (6) Diverticulitis Current Visit: Yes Status: Suspected CT of the abdomen and pelvis shows findings consistent with diverticulosis with suspected diverticulitis. Abdominal exam benign. Continue Aztreonam and Flagyl as currently prescribed (day 5). Consider stopping soon. Further management per the primary team. Qualifiers: Diverticulitis site: unspecified part of intestinal tract Diverticulitis bleeding: without bleeding Diverticulitis complication: without perforation or abscess Qualified Code(s): K57.92 - Diverticulitis of intestine, part unspecified, without perforation or abscess without bleeding (7) Cardiomyopathy Current Visit: Yes Status: Acute TTE showed EF of 30%. Etiology unclear: ischemic vs. stress-induced. Cardiology consulted and following. Qualifiers: Cardiomyopathy type: unspecified Qualified Code(s): I42.9 - Cardiomyopathy , unspecified (8) Elevated troponin Current Visit: Yes Status: Acute Cardiology consulted and following. (9) Hypoxemia Current Visit: Yes Status: Acute Likely secondary to fluid overload. Improved. Management per the primary team. (10) Thrombocytopenia Current Visit: Yes Status: Acute Likely secondary to sepsis. Resolved. No evidence of bleeding noted on exam. Continue to trend. (11) Hyponatremia Current Visit: Yes Status: Acute (12) Urinary incontinence Current Visit: Yes Status: Chronic Qualifiers: Urinary Incontinence type: unspecified incontinence Qualified Code(s): R32 - Unspecified urinary incontinence (13) Hypertension Current Visit: Yes Status: Chronic Qualifiers: Hypertension type: essential hypertension Qualified Code(s): I10 - Essential (primary) hypertension (14) Hypokalemia Current Visit: Yes Status: Acute Replaced this AM. Management per the primary team. - Subjective Interval history: Patient seen and examined. No acute events noted overnight. Patient has been afebrile since yesterday evening. Status post DANTE this morning that revealed vegetation on the mitral valve with mitral regurgitation. Patient drowsy, but arousable. Follows commands. Complains of pain in the right wrist, but denies other focal pain. Denies chest pain, shortness of breath, or cough. Denies nausea, vomiting, or constipation. Denies abdominal pain. Requests something to drink, but is currently NPO post DANTE. Denies oral thrush or new skin lesions. Dr. Jimenez at bedside for PCN testing. Infect Dis PN-Objective Data - Labs CBC & Chem 7: 08/15/16 06:55 08/15/16 06:55 Labs: Laboratory Results - last 24 hr 08/13/16 08/13/16 08/13/16 11:33 16:19 22:17 WBC RBC Hgb Hct MCV MCH MCHC RDW Plt Count MPV Immature Gran % Seg Neutrophils % Lymphocytes % Monocytes % Eosinophils % Basophils % Neutrophils # Lymphocytes # Monocytes # Eosinophils # Basophils # Reactive Lymphocytes Platelet Estimate APTT Sodium Potassium Chloride Carbon Dioxide BUN Creatinine Est GFR ( Amer) Est GFR (Non-Af Amer) BUN/Creatinine Ratio Glucose POC Glucose 233 H 208 H 307 H Calculated Osmolality Calcium 08/13/16 08/14/16 08/14/16 22:20 05:55 05:55 WBC 7.3 RBC 4.16 L Hgb 12.5 L Hct 35.8 L MCV 86.1 MCH 30.0 MCHC 34.9 RDW 13.5 Plt Count 191 MPV 11.1 Immature Gran % 2.6 Seg Neutrophils % 69.2 Lymphocytes % 15.0 Monocytes % 12.6 Eosinophils % 0.3 Basophils % 0.3 Neutrophils # 5.1 Lymphocytes # 1.1 Monocytes # 0.9 Eosinophils # 0.0 Basophils # 0.0 Reactive Lymphocytes Present A Platelet Estimate Normal APTT 46.1 H Sodium 135 L Potassium 2.5 L* Chloride 101 Carbon Dioxide 24 BUN 19 Creatinine 0.64 L Est GFR ( Amer) > 60 Est GFR (Non-Af Amer) > 60 BUN/Creatinine Ratio 30 H Glucose 240 H POC Glucose Calculated Osmolality 290 Calcium 7.8 L 08/14/16 08/14/16 05:55 07:24 WBC RBC Hgb Hct MCV MCH MCHC RDW Plt Count MPV Immature Gran % Seg Neutrophils % Lymphocytes % Monocytes % Eosinophils % Basophils % Neutrophils # Lymphocytes # Monocytes # Eosinophils # Basophils # Reactive Lymphocytes Platelet Estimate APTT 44.2 H Sodium Potassium Chloride Carbon Dioxide BUN Creatinine Est GFR ( Amer) Est GFR (Non-Af Amer) BUN/Creatinine Ratio Glucose POC Glucose 232 H Calculated Osmolality Calcium Cultures: Cultures 08/11/16 20:50 Blood Culture - Final Peripheral Venipuncture Staphylococcus aureus 08/13/16 10:11 Blood Culture - Final Peripheral Venipuncture Staphylococcus aureus 08/11/16 20:40 Blood Culture - Final Peripheral Venipuncture Staphylococcus aureus 08/11/16 11:54 Gram Stain - Final Cerebral Spinal Fluid CSF Culture - Final 08/09/16 22:26 Blood Culture - Final Peripheral Venipuncture Staphylococcus aureus 08/10/16 00:55 Blood Culture - Final Peripheral Venipuncture Staphylococcus aureus 08/10/16 01:00 Blood Culture - Final Peripheral Venipuncture Staphylococcus aureus 08/11/16 11:54 Cryptococcal Antigen - Final Cerebral Spinal Fluid Serology 08/13/16 08/11/16 08/11/16 Range/Units 01:01 20:40 11:54 Fluid Source Fluid Volume Fluid Appearance Fluid RBC Fld Tot Nucleated Cell Fluid Seg Neutrophil % Fld Band Neutrophil % Fluid Lymphocytes % Fluid Monocytes % Fluid Eosinophils % Fluid Basophils % Fluid Other Cells % CSF Volume 8.0 mL CSF Appearance Clear (Clear) CSF Color Colorless (Colorless) CSF RBC < 0 L (0-1) RBC/mcL CSF Tot Nucleated Cells 3 (0-5) TNC/mcL CSF Seg Neutrophils TNP CSF Band Neutrophils % TNP CSF Lymphocytes % TNP CSF Monocytes % TNP CSF Eosinophils % TNP CSF Basophils % TNP CSF Other Cells % TNP CSF Glucose TNP CSF Xanth Comm Not Observed (Not Observe) CSF Total Protein TNP Stl C. cayetanensis PCR Not detected (Not detect) Stool Rotavirus A PCR Not detected (Not detect) Stl Adenov F 40/41 PCR Not detected (Not detect) Stool Astrovirus (PCR) Not detected (Not detect) Stool Campylobacter PCR Not detected (Not detect) Stl C. diff Tox A/B PCR Not detected (Not detect) Stool Cryptosporidium PCR Not detected (Not detect) Stl Sh Tox Pr E STEC PCR Not detected (Not detect) Stool E coli O157 PCR Not detected (Not detect) Stl Enterotoxigenic E PCR Not detected (Not detect) Stool EPEC (PCR) Not detected (Not detect) Stool EAEC (PCR) DETECTED A (Not detect) Stl E. histolytica PCR Not detected (Not detect) Stool Giardia Lamblia PCR Not detected (Not detect) Stool Salmonella PCR Not detected (Not detect) Stool Sapovirus (PCR) Not detected (Not detect) Stl P. shigelloides PCR Not detected (Not detect) Stl Shigella/EIEC PCR Not detected (Not detect) St Y.enterocolitica PCR Not detected (Not detect) Stool Vibrio (PCR) Not detected (Not detect) Stl Vibrio cholerae PCR Not detected (Not detect) Stl Norovirus GI/GII PCR Not detected (Not detect) Stl GI Panel (PCR) Com See below A. baumannii (PCR) Not Detected (Not Detect) Chlamy pneumoniae PCR (Not Detect) Adenovirus (PCR) (Not Detect) B. pertussis DNA (PCR) (Not Detect) Gill albicans (PCR) Not Detected (Not Detect) C. glabrata (PCR) Not Detected (Not Detect) C. krusei (PCR) Not Detected (Not Detect) C. parapsilosis (PCR) Not Detected (Not Detect) C. tropicalis (PCR) Not Detected (Not Detect) Coronavirus OC43 (PCR) (Not Detect) Coronavirus HKU1 (PCR) (Not Detect) Coronavirus 229E (PCR) (Not Detect) Coronavirus NL63 (PCR) (Not Detect) Enterobacteriac sp PCR Not Detected (Not Detect) E. cloacae complex PCR Not Detected (Not Detect) Enterococcus sp PCR Not Detected (Not Detect) E. coli (PCR) Not Detected (Not Detect) H. influenzae (PCR) Not Detected (Not Detect) HIV Ag/Ab Combo Qual (Nonreactive) Human Metapneumovirus (Not Detect) Influenza A (H1) PCR (Not Detect) Influ A (H1N1/09) PCR (Not Detect) Influenza A (H3) PCR (Not Detect) Influenza A Untype (PCR) (Not Detect) Influenza Type B (PCR) (Not Detect) Klebsiella oxytoca PCR Not Detected (Not Detect) Klebsiella pneumoniae Not Detected (Not Detect) List. monocytogenes PCR Not Detected (Not Detect) M.pneumoniae DNA (PCR) (Not Detect) N. meningitidis (PCR) Not Detected (Not Detect) Parainfluenza 1 (PCR) (Not Detect) Parainfluenza 2 (PCR) (Not Detect) Parainfluenza 3 (PCR) (Not Detect) Parainfluenza 4 (PCR) (Not Detect) Proteus species (PCR) Not Detected (Not Detect) RSV (PCR) (Not Detect) Entero/Rhino (PCR) (Not Detect) Serratia marcescens PCR Not Detected (Not Detect) Staphylococcus sp PCR DETECTED A (Not Detect) Staph aureus (PCR) DETECTED A (Not Detect) mecA-Methicil Res Gene Not Detected (Not Detect) Streptococcus sp PCR Not Detected (Not Detect) Group A Strep DNA Not Detected (Not Detect) Group B Strep (PCR) Not Detected (Not Detect) Strep pneumoniae (PCR) Not Detected (Not Detect) P. aeruginosa (PCR) Not Detected (Not Detect) Batsheva/B-Vanco Res Genes N/A (Not Detect) KPC (blaKPC) Detect PCR N/A (Not Detect) 08/11/16 08/09/16 08/09/16 Range/Units 11:54 22:26 19:53 Fluid Source Test Not Performed Fluid Volume Test Not Performed Fluid Appearance Test Not Performed Fluid RBC TNP Fld Tot Nucleated Cell TNP Fluid Seg Neutrophil % Test Not Performed Fld Band Neutrophil % Test Not Performed Fluid Lymphocytes % Test Not Performed Fluid Monocytes % Test Not Performed Fluid Eosinophils % Test Not Performed Fluid Basophils % Test Not Performed Fluid Other Cells % Test Not Performed CSF Volume mL CSF Appearance (Clear) CSF Color (Colorless) CSF RBC (0-1) RBC/mcL CSF Tot Nucleated Cells (0-5) TNC/mcL CSF Seg Neutrophils CSF Band Neutrophils % CSF Lymphocytes % CSF Monocytes % CSF Eosinophils % CSF Basophils % CSF Other Cells % CSF Glucose CSF Xanth Comm (Not Observe) CSF Total Protein Stl C. cayetanensis PCR (Not detect) Stool Rotavirus A PCR (Not detect) Stl Adenov F 40/41 PCR (Not detect) Stool Astrovirus (PCR) (Not detect) Stool Campylobacter PCR (Not detect) Stl C. diff Tox A/B PCR (Not detect) Stool Cryptosporidium PCR (Not detect) Stl Sh Tox Pr E STEC PCR (Not detect) Stool E coli O157 PCR (Not detect) Stl Enterotoxigenic E PCR (Not detect) Stool EPEC (PCR) (Not detect) Stool EAEC (PCR) (Not detect) Stl E. histolytica PCR (Not detect) Stool Giardia Lamblia PCR (Not detect) Stool Salmonella PCR (Not detect) Stool Sapovirus (PCR) (Not detect) Stl P. shigelloides PCR (Not detect) Stl Shigella/EIEC PCR (Not detect) St Y.enterocolitica PCR (Not detect) Stool Vibrio (PCR) (Not detect) Stl Vibrio cholerae PCR (Not detect) Stl Norovirus GI/GII PCR (Not detect) Stl GI Panel (PCR) Com A. baumannii (PCR) Not Detected (Not Detect) Chlamy pneumoniae PCR Not Detected (Not Detect) Adenovirus (PCR) Not Detected (Not Detect) B. pertussis DNA (PCR) Not Detected (Not Detect) Gill albicans (PCR) Not Detected (Not Detect) C. glabrata (PCR) Not Detected (Not Detect) C. krusei (PCR) Not Detected (Not Detect) C. parapsilosis (PCR) Not Detected (Not Detect) C. tropicalis (PCR) Not Detected (Not Detect) Coronavirus OC43 (PCR) Not Detected (Not Detect) Coronavirus HKU1 (PCR) Not Detected (Not Detect) Coronavirus 229E (PCR) Not Detected (Not Detect) Coronavirus NL63 (PCR) Not Detected (Not Detect) Enterobacteriac sp PCR Not Detected (Not Detect) E. cloacae complex PCR Not Detected (Not Detect) Enterococcus sp PCR Not Detected (Not Detect) E. coli (PCR) Not Detected (Not Detect) H. influenzae (PCR) Not Detected (Not Detect) HIV Ag/Ab Combo Qual (Nonreactive) Human Metapneumovirus Not Detected (Not Detect) Influenza A (H1) PCR Not Detected (Not Detect) Influ A (H1N1/09) PCR Not Detected (Not Detect) Influenza A (H3) PCR Not Detected (Not Detect) Influenza A Untype (PCR) Not Detected (Not Detect) Influenza Type B (PCR) Not Detected (Not Detect) Klebsiella oxytoca PCR Not Detected (Not Detect) Klebsiella pneumoniae Not Detected (Not Detect) List. monocytogenes PCR Not Detected (Not Detect) M.pneumoniae DNA (PCR) Not Detected (Not Detect) N. meningitidis (PCR) Not Detected (Not Detect) Parainfluenza 1 (PCR) Not Detected (Not Detect) Parainfluenza 2 (PCR) Not Detected (Not Detect) Parainfluenza 3 (PCR) Not Detected (Not Detect) Parainfluenza 4 (PCR) Not Detected (Not Detect) Proteus species (PCR) Not Detected (Not Detect) RSV (PCR) Not Detected (Not Detect) Entero/Rhino (PCR) Not Detected (Not Detect) Serratia marcescens PCR Not Detected (Not Detect) Staphylococcus sp PCR DETECTED A (Not Detect) Staph aureus (PCR) DETECTED A (Not Detect) mecA-Methicil Res Gene Not Detected (Not Detect) Streptococcus sp PCR Not Detected (Not Detect) Group A Strep DNA Not Detected (Not Detect) Group B Strep (PCR) Not Detected (Not Detect) Strep pneumoniae (PCR) Not Detected (Not Detect) P. aeruginosa (PCR) Not Detected (Not Detect) Batsheva/B-Vanco Res Genes N/A (Not Detect) KPC (blaKPC) Detect PCR N/A (Not Detect) 08/09/16 Range/Units 18:57 Fluid Source Fluid Volume Fluid Appearance Fluid RBC Fld Tot Nucleated Cell Fluid Seg Neutrophil % Fld Band Neutrophil % Fluid Lymphocytes % Fluid Monocytes % Fluid Eosinophils % Fluid Basophils % Fluid Other Cells % CSF Volume mL CSF Appearance (Clear) CSF Color (Colorless) CSF RBC (0-1) RBC/mcL CSF Tot Nucleated Cells (0-5) TNC/mcL CSF Seg Neutrophils CSF Band Neutrophils % CSF Lymphocytes % CSF Monocytes % CSF Eosinophils % CSF Basophils % CSF Other Cells % CSF Glucose CSF Xanth Comm (Not Observe) CSF Total Protein Stl C. cayetanensis PCR (Not detect) Stool Rotavirus A PCR (Not detect) Stl Adenov F 40/41 PCR (Not detect) Stool Astrovirus (PCR) (Not detect) Stool Campylobacter PCR (Not detect) Stl C. diff Tox A/B PCR (Not detect) Stool Cryptosporidium PCR (Not detect) Stl Sh Tox Pr E STEC PCR (Not detect) Stool E coli O157 PCR (Not detect) Stl Enterotoxigenic E PCR (Not detect) Stool EPEC (PCR) (Not detect) Stool EAEC (PCR) (Not detect) Stl E. histolytica PCR (Not detect) Stool Giardia Lamblia PCR (Not detect) Stool Salmonella PCR (Not detect) Stool Sapovirus (PCR) (Not detect) Stl P. shigelloides PCR (Not detect) Stl Shigella/EIEC PCR (Not detect) St Y.enterocolitica PCR (Not detect) Stool Vibrio (PCR) (Not detect) Stl Vibrio cholerae PCR (Not detect) Stl Norovirus GI/GII PCR (Not detect) Stl GI Panel (PCR) Com A. baumannii (PCR) (Not Detect) Chlamy pneumoniae PCR (Not Detect) Adenovirus (PCR) (Not Detect) B. pertussis DNA (PCR) (Not Detect) Gill albicans (PCR) (Not Detect) C. glabrata (PCR) (Not Detect) C. krusei (PCR) (Not Detect) C. parapsilosis (PCR) (Not Detect) C. tropicalis (PCR) (Not Detect) Coronavirus OC43 (PCR) (Not Detect) Coronavirus HKU1 (PCR) (Not Detect) Coronavirus 229E (PCR) (Not Detect) Coronavirus NL63 (PCR) (Not Detect) Enterobacteriac sp PCR (Not Detect) E. cloacae complex PCR (Not Detect) Enterococcus sp PCR (Not Detect) E. coli (PCR) (Not Detect) H. influenzae (PCR) (Not Detect) HIV Ag/Ab Combo Qual Nonreactive (Nonreactive) Human Metapneumovirus (Not Detect) Influenza A (H1) PCR (Not Detect) Influ A (H1N1/09) PCR (Not Detect) Influenza A (H3) PCR (Not Detect) Influenza A Untype (PCR) (Not Detect) Influenza Type B (PCR) (Not Detect) Klebsiella oxytoca PCR (Not Detect) Klebsiella pneumoniae (Not Detect) List. monocytogenes PCR (Not Detect) M.pneumoniae DNA (PCR) (Not Detect) N. meningitidis (PCR) (Not Detect) Parainfluenza 1 (PCR) (Not Detect) Parainfluenza 2 (PCR) (Not Detect) Parainfluenza 3 (PCR) (Not Detect) Parainfluenza 4 (PCR) (Not Detect) Proteus species (PCR) (Not Detect) RSV (PCR) (Not Detect) Entero/Rhino (PCR) (Not Detect) Serratia marcescens PCR (Not Detect) Staphylococcus sp PCR (Not Detect) Staph aureus (PCR) (Not Detect) mecA-Methicil Res Gene (Not Detect) Streptococcus sp PCR (Not Detect) Group A Strep DNA (Not Detect) Group B Strep (PCR) (Not Detect) Strep pneumoniae (PCR) (Not Detect) P. aeruginosa (PCR) (Not Detect) Batsheva/B-Vanco Res Genes (Not Detect) KPC (blaKPC) Detect PCR (Not Detect) Exam - Constitutional Vitals: Temp Pulse Resp BP Pulse Ox 97.8 F 84 28 155/88 95 08/14/16 07:44 08/14/16 09:00 08/14/16 09:00 08/14/16 09:00 08/14/16 09:00 General appearance: average body habitus, cooperative, no acute distress - Head Head exam: Present: atraumatic, normal inspection, normocephalic - Eye Eye exam: Present: EOMI, normal appearance, PERRL Pupils: Present: normal accommodation Additional comments: No subconjunctival hemorrhage noted. - ENT ENT exam: Present: mucous membranes moist - Neck Neck exam: Present: normal inspection - Respiratory Respiratory exam: Present: CTAB. Absent: rales, respiratory distress, rhonchi, wheezes - Cardiovascular Cardiovascular exam: Present: irregular rhythm. Absent: diastolic murmur, systolic murmur, tachycardia - GI/Abdominal GI/Abdominal exam: Present: normal bowel sounds, soft. Absent: distended, tenderness Additional comments: Chavez catheter patent draining clear yellow urine. - Extremities Exam Extremities exam: Present: joint swelling (right wrist), tenderness (right wrist ). Absent: pedal edema - Neurological Exam Neurological exam: Present: altered (drowsy), oriented X3, no focal deficits - Psychiatric Psychiatric exam: Present: normal affect, normal mood - Skin Skin exam: Present: dry, intact, normal color, warm Additional comments: No endocarditis stigmata noted. - VTE Documentation of Mechanical Device: Intermittent pneumatic compression device Consult Discharge Plan - Plan [facility]errals: [facility] [Primary Care Provider] -
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
--- NOTE | 2016-08-14 13:49 | ENT - Consult Note ---
Date of Encounter: 08/14/16 Time of Encounter: 10:00 Assessment and Plan (1) Drug allergy, antibiotic Current Visit: Yes Status: Acute (2) Penicillin allergy Current Visit: Yes Status: Acute Patient has history of penicillin allergy. Patient requires a cephalosporin for his endocarditis so I offered patient and his testing for penicillin so that he may safely take the cephalosporin. [facility]. We discussed if his skin testing did not respond the we would consider a graded oral challenge to keflex. was consented over the phone for both procedures. Please see below for penicillin procedure. Update:Patient was negative to penicillin testing. He should have penicillin allergy removed from his list. Dr. Byers was notified. History of Present Illness Consult date: 08/14/16 (PCN Allergy) Requesting physician: Brant Byers History of present illness: Patient has a history of penicillin allergy. He reports having large welts after taking penicillin when he was 28. He denies difficulty breathing with that episode. He has not had penicillin since. He does not believe he has had a cephalosporin either. I discussed also with patient's and she also does not know if he has had a cephalosporin. He is currently admitted to ICU for endocarditis and just had a DANTE this morning. He reports feeling thirsty and tired. He denies itching or difficulty breathing today. He has right wrist pain. Past Med Surg Social Fam HX - Past Medical History Medical history: diabetes, hyperlipidemia, hypertension, myocardial infarction - Social History Smoking Status: Former smoker Alcohol use: none Drug use: none Medications and Allergies Acarbose [Precose] 50 mg PO BID 08/09/16 [History] Aspirin 81 mg PO DAILY 08/09/16 [History] Cholecalciferol (D-3) [Vitamin D] 1,000 unit PO DAILY 08/09/16 [History] Gabapentin [Neurontin] 800 mg PO QID 08/09/16 [History] GlipiZIDE [Glipizide] 20 mg PO BID 08/09/16 [History] Metformin [Glucophage] 850 mg PO TID 08/09/16 [History] Methocarbamol [Robaxin-750] 750 mg PO QID 08/09/16 [History] Naproxen Sodium [Naproxen Sodium Ds] 550 mg PO BID 08/09/16 [History] Omeprazole [PriLOSEC] 20 mg PO DAILY 08/09/16 [History] Saxagliptin HCl [Onglyza] 5 mg PO DAILY 08/09/16 [History] Sertraline [Zoloft] 150 mg PO DAILY 08/09/16 [History] Simvastatin [Zocor] 40 mg PO QPM 08/09/16 [History] Allergies No Known Allergies Allergy (Verified 08/14/16 13:12) ENT - ROS ROS unobtainable: due to mental status, other (patient is groggy from his DANTE this morning, he only complains of thirst and wrist pain) All systems PM: reviewed and no additional remarkable complaints except as stated ENT Exam Initial Vital Signs Temp Pulse Resp BP Pulse Ox 99.7 F H 119 18 161/72 93 L 08/08/16 22:36 08/08/16 22:36 08/08/16 22:36 08/08/16 22:36 08/08/16 22:36 - General physical appearance no distress - ENT dry mucosa - Neck trachea midline - Respiratory clear to auscultation - Abdomen Abdomen: soft, non tender - Integumentary other (redness on right hand and wrist) - Musculoskeletal other (pain with movement of right wrist) - Psychiatric other (mildly disoriented) Exam Initial Vital Signs Temp Pulse Resp BP Pulse Ox 99.7 F H 119 18 161/72 93 L 08/08/16 22:36 08/08/16 22:36 08/08/16 22:36 08/08/16 22:36 08/08/16 22:36 Results - Labs 08/14/16 05:55 08/14/16 13:10 Abnormal lab results RBC 4.16 M/mcL (4.19-5.50) L 08/14/16 05:55 Hgb 12.5 g/dL (12.9-16.9) L 08/14/16 05:55 Hct 35.8 % (37.5-50.1) L 08/14/16 05:55 Band Neutrophils % 8.0 % (0-4) H 08/12/16 03:24 Hyposegmented Neuts Present (Not Present) A 08/10/16 01:00 Reactive Lymphocytes Present (Not Present) A 08/14/16 05:55 Toxic Granulation Present (Not Present) A 08/12/16 03:24 Dohle Bodies Present (Not Present) A 08/12/16 03:24 Immature Plt Fraction 7.2 % (1.1-6.1) H 08/09/16 22:26 Poikilocytosis 1+ (Not Present) A 08/13/16 00:47 Anisocytosis 1+ (Not Present) A 08/13/16 00:47 PT 15.6 Seconds (9.4-12.1) H 08/09/16 18:51 APTT 58.1 Seconds (26.0-36.0) H 08/14/16 13:10 D-Dimer 4758 ng/mLFEU (0-500) H 08/09/16 12:47 ABG pH 7.46 pH Units (7.32-7.45) H 08/10/16 10:25 ABG pCO2 29 mmHg (35-45) L 08/10/16 10:25 ABG pO2 62 mmHg (85-104) L 08/10/16 10:25 ABG HCO3 20.6 mEQ/L (21-27) L 08/10/16 10:25 ABG O2 Saturation 93 % (95-98) L 08/10/16 10:25 ABG Base Excess -2.2 mEq/L (-2.0 to 3.0) L 08/10/16 10:25 VBG pH 7.52 pH Units (7.32-7.42) H 08/10/16 01:00 VBG pCO2 24 mmHg (41-51) L 08/10/16 01:00 VBG pO2 84 mmHg (25-40) H 08/10/16 01:00 VBG HCO3 19.6 mEq/L (21-27) L 08/10/16 01:00 Sodium 135 mEq/L (136-145) L 08/14/16 05:55 Potassium 2.5 mEq/L (3.5-4.5) L* 08/14/16 05:55 Creatinine 0.64 mg/dL (0.72-1.25) L 08/14/16 05:55 BUN/Creatinine Ratio 30 (6-26) H 08/14/16 05:55 Glucose 240 mg/dL (70-99) H 08/14/16 05:55 POC Glucose 209 (58-89) H 08/14/16 11:31 Hemoglobin A1c 8.3 % (-5.6) H 08/09/16 12:47 Calcium 7.8 mg/dL (8.6-10.8) L 08/14/16 05:55 Ionized Calcium 0.96 mmol/L (1.15-1.35) L 08/11/16 05:44 Ferritin 3440 ng/ml (22-275) H 08/12/16 03:24 AST 40 Units/L (5-34) H 08/09/16 02:10 Creatine Kinase 294 Units/L (30-200) H 08/09/16 02:10 Troponin I 0.17 ng/mL (0-0.03) H* 08/09/16 12:47 C-Reactive Protein 269 mg/L (Less than 5) H 08/09/16 12:47 Albumin 3.4 g/dL (3.5-5.0) L 08/09/16 02:10 Globulin 4.0 g/dL (2.4-3.5) H 08/09/16 02:10 Albumin/Globulin Ratio 0.9 (1.1-2.2) L 08/09/16 02:10 Beta-Hydroxybutyric Acd 1.33 mmol/L (0.02-0.27) H 08/09/16 12:47 Ur Specific [employer] > 1.030 (1.010-1.025) H 08/09/16 06:14 Urine Protein 100 mg/dL (Neg-Trace) H 08/09/16 06:14 Urine Glucose (UA) >=1000 mg/dL (Normal) H 08/09/16 06:14 Urine Ketones 40 mg/dL (Negative) H 08/09/16 06:14 Urine Blood Large (Negative) H 08/09/16 06:14 Urine Microscopic RBC 5-15 per hpf (0-3) H 08/09/16 06:14 Urine Microscopic WBC 3-5 per hpf (0-3) H 08/09/16 06:14 Ur Squamous Epith Cells Moderate per lpf (None-Few) H 08/09/16 06:14 CSF RBC < 0 RBC/mcL (0-1) L 08/11/16 11:54 Stool EAEC (PCR) DETECTED (Not detect) A 08/13/16 01:01 Vancomycin Trough 8.9 mcg/mL (10-20) L 08/11/16 13:05 Staphylococcus sp PCR DETECTED (Not Detect) A 08/11/16 20:40 Staph aureus (PCR) DETECTED (Not Detect) A 08/11/16 20:40 Diabetes panel 08/14/16 Range/Units 05:55 Sodium 135 L (136-145) mEq/L Potassium 2.5 L* (3.5-4.5) mEq/L Chloride 101 (98-109) mEq/L Carbon Dioxide 24 (19-29) mEq/L BUN 19 (8-26) mg/dL Creatinine 0.64 L (0.72-1.25) mg/dL Glucose 240 H (70-99) mg/dL Calcium 7.8 L (8.6-10.8) mg/dL Calcium panel 08/14/16 Range/Units 05:55 Calcium 7.8 L (8.6-10.8) mg/dL Pituitary panel 08/14/16 Range/Units 05:55 Sodium 135 L (136-145) mEq/L Potassium 2.5 L* (3.5-4.5) mEq/L Chloride 101 (98-109) mEq/L Carbon Dioxide 24 (19-29) mEq/L BUN 19 (8-26) mg/dL Creatinine 0.64 L (0.72-1.25) mg/dL Glucose 240 H (70-99) mg/dL Calcium 7.8 L (8.6-10.8) mg/dL Adrenal panel 08/14/16 Range/Units 05:55 Sodium 135 L (136-145) mEq/L Potassium 2.5 L* (3.5-4.5) mEq/L Chloride 101 (98-109) mEq/L Carbon Dioxide 24 (19-29) mEq/L BUN 19 (8-26) mg/dL Creatinine 0.64 L (0.72-1.25) mg/dL Glucose 240 H (70-99) mg/dL Calcium 7.8 L (8.6-10.8) mg/dL All other labs normal. Consult Discharge Plan - Plan [facility]errals: [facility] [Primary Care Provider[facility] - Date of procedure: 08/14/16 Pre-op diagnosis: Penicillin allergic Post-op diagnosis: other (negative to penicillin) Procedure: Penicillin Testing: a total of 6 skin pricks were done. These included : 1.Histamine (5x8) 2.Saline (0x2) 3.Two Pricks of Pen G (0x2,0x2) 4. Two Pricks of PrePen (0x2,0x2) After watching for 20mins without reaction from the penicillin. proceeded with intradermals. Intradermals : 1. Two (2) Prepen intradermals were injected on the right upper arm (5x5x,5x5) 2. Two (2) Pen G intradermals were injected on the right upper arm (5x5,5x5) After watching for 20 minutes with no reaction, proceeded with the oral challenge. Oral Challenge: Procedure was explained in detail to pt and pt's per telephone, verbal consent obtained per pt's One Amoxicillin 500mg tablet was given to pt. After being being monitored x 60 mins pt was without change, vitals and exam stable without change.
[2016-08-14 13:53] LABS: Potassium 2.9 mEq/L (3.5-4.5)
[2016-08-14] MEDS ORDERED: ceFAZolin 2,000 MG in D5% in Water 100 ML IVPB SCH (14:00)
[2016-08-14 14:07] LABS: BUN/Creatinine Ratio 26 (6-26); Blood Urea Nitrogen 17 mg/dL (8-26); Calcium 8.1 mg/dL (8.6-10.8); Carbon Dioxide 24 mEq/L (19-29); Chloride 99 mEq/L (98-109); Glucose 292 mg/dL (70-99); Osmolality,Calculated 288 (280-300); Sodium 133 mEq/L (136-145); eGFR For African Americans > 60 (> 60); eGFR For Non-African Americans > 60 (> 60)
[2016-08-14] MEDS ORDERED: Gentamicin 80 MG in 0.9 % Sodium Chloride 100 ML IVPB SCH (15:00)
[2016-08-14 16:36] LABS: Magnesium 1.3 mg/dL (1.6-2.6)
[2016-08-14] MEDS ORDERED: Magnesium Sulfate 2 GM in D5% in Water 100 ML IVPB ONE (17:45)
--- NOTE | 2016-08-14 18:36 | Orthopedics Progress Note ---
Date of Encounter: 08/14/16 Time of Encounter: 18:32 Subjective Principal diagnosis: MSSA bacteremia, DKA, CMP-EF 30% Interval history: Patient is seen in follow-up regarding his right wrist. He remains confused. and daughter are here and I was able to obtain some further history from them. They tell me the patient has had several falls most being about a week ago. He also has been having some pain in the wrist since those recent falls. He also states that the patient has had numerous episodes of "sugar boils" on his legs. These [facility]. Vital signs are stable. He does have a temperature of 100.9 rectal. Wrist looks about the same. There is no significant edema. There is some mild erythema. Blood cell count remains normal at 10.1. Hemoglobin is stable at 14.3. Platelet count remained stable at 111. Impression: MSSA bacteremia, questionable infection right wrist Recommendation: I do not see the need to proceed with a aspiration of the wrist , patient has been on intravenous antibiotics for a period time and this would probably have sterilized the fluid if any would be aspirated. I do not think this would alter our treatment unless we can prove a joint infection. We will continue to monitor his clinical status and make any further recommendations pending clinical or other findings. 08/13/2016. Patient is seen in follow-up regarding the right wrist. He appears more lucid today. He states that he still having some pain in the wrist. I am unable to obtain adequate history as to how long has wrist has been bothering him for this current episode. He denies any previous surgery on the wrist. Been trying to use an move the fingers recently. Vital signs continue to show elevated temperature of 101.4 rectal. The wrist appears to be somewhat more edematous. There are skin wrinkles. There is no definitive effusion. There appears to be swelling distal to a compression dressing on the forearm from what appears to be a previous blood draw. Sensory exam remains intact. Blood blood cell count is normal. Hemoglobin is stable. Repeat blood cultures continue to grow gram-positive cocci presumably MSSA. I reviewed recently completed CT scan of the wrist. This continues to show degenerative changes at multiple levels and locations. There are numerous small cystic changes within the carpal bones as well as arthritic changes. The are no evidence of osseous destruction, cortical changes etc. that would be suggestive of an underlying osteomyelitis. No evidence of significant effusion. Impression: MSSA bacteremia, source unclear Recommendation: I do not think aspiration is helpful if even possible due to the lack of fluid accumulation within the wrist joint proper. WBC scan may be best option to identify possible source, MRI of the wrist would be helpful if that area is involved in the WBC scan. As previously noted, a spontaneous infection in a joint in an adult is unusual even though the patient has risk factors. The intravenous antibiotics given thus far should have cleared or sterilized the wrist joint and I do not see evidence of a osteomyelitis involving the carpal bones proper. We will continue to follow with you. 08/14/2016. Patient sleeping soundly. Still having some right wrist pain and swelling. Vital signs are stable. He is currently 100.4 rectal. Wrist is relatively unchanged. There is some dorsal hand edema. No evidence of an effusion in the wrist. There are still skin wrinkles present. Blood blood cell count is normal. The patient had a DANTE performed today which reportedly revealed valvular vegetations. Impression: MSSA bacteremia, valvular vegetations likely etiology. Right wrist pain, combination of acute trauma on pre-existing arthritic wrist Recommendation: Regarding his wrists symptomatic treatment is all that is indicated. Would encourage continued use of the hand and wrist and fingers. Consider OT evaluation and hand therapy program. Will follow as needed. Please call if I can be of any further assistance. Objective Vital signs: Vital Signs Temp Pulse Pulse Pulse Pulse Pulse Pulse 08/14/16 16:40 100.4 F H 08/14/16 16:17 84 08/14/16 15:21 83 08/14/16 14:15 88 08/14/16 13:10 82 08/14/16 12:21 100.3 F H 08/14/16 12:00 80 08/14/16 11:19 86 08/14/16 10:00 84 08/14/16 09:00 84 08/14/16 08:41 78 80 83 80 84 08/14/16 08:00 78 08/14/16 07:44 97.8 F 08/14/16 06:00 99.4 F 81 08/14/16 05:00 99.1 F 72 08/14/16 04:00 98.7 F 72 08/14/16 03:00 99.0 F 74 08/14/16 02:00 99.2 F 70 08/14/16 01:10 86 08/14/16 00:38 99.4 F 08/14/16 00:00 99.4 F 97 08/13/16 22:00 90 08/13/16 21:00 95 08/13/16 20:14 98.2 F 08/13/16 20:00 98.2 F 83 Resp Resp Resp Resp Resp Resp BP 08/14/16 16:40 08/14/16 16:17 26 161/92 08/14/16 15:21 25 158/84 08/14/16 14:15 26 142/81 08/14/16 13:10 27 157/83 08/14/16 12:21 08/14/16 12:00 25 154/81 08/14/16 11:19 26 157/109 08/14/16 10:00 26 149/90 08/14/16 09:00 28 155/88 08/14/16 08:41 24 28 28 29 28 08/14/16 08:00 24 152/88 08/14/16 07:44 08/14/16 06:00 26 165/90 08/14/16 05:00 30 153/81 08/14/16 04:00 28 136/76 08/14/16 03:00 27 142/70 08/14/16 02:00 29 140/79 08/14/16 01:10 30 131/74 08/14/16 00:38 08/14/16 00:00 30 141/84 08/13/16 22:00 30 159/88 08/13/16 21:00 25 156/85 08/13/16 20:14 08/13/16 20:00 24 131/81 BP BP BP BP BP Pulse Ox 08/14/16 16:40 08/14/16 16:17 96 08/14/16 15:21 95 08/14/16 14:15 96 08/14/16 13:10 95 08/14/16 12:21 08/14/16 12:00 94 L 08/14/16 11:19 95 08/14/16 10:00 94 L 08/14/16 09:00 95 08/14/16 08:41 151/80 157/87 151/87 155/87 155/88 08/14/16 08:00 94 L 08/14/16 07:44 08/14/16 06:00 96 08/14/16 05:00 95 08/14/16 04:00 94 L 08/14/16 03:00 95 08/14/16 02:00 95 08/14/16 01:10 95 08/14/16 00:38 08/14/16 00:00 95 08/13/16 22:00 95 08/13/16 21:00 95 08/13/16 20:14 08/13/16 20:00 95 Intake and Output 08/14/16 08/14/16 08/14/16 07:59 15:59 23:59 Intake Total 1948 / 1950 410 / 410 120 / 120 Output Total 1150 / 1150 400 / 400 1500 / 1500 Balance 800 / 800 10 / 10 -1380 / -1380 Intake: IV Fluids 1947 / 1949 410 / 410 0.9 % Sodium Chloride 1, 1000 / 1000 000 ML @ 75 mls/hr IVC . [id number] [facility] Rx#: [id number] Heparin 25,000 UNIT/500 500 / 500 210 / 210 ML D5W 25,000 unit In 500 ml @ 14 UNIT/KG/HR 26. 768 mls/hr IVC .[id number] [facility] Rx#:[id number] Azactam 1,000 MG In 100 / 100 Dextrose 5% (Minibag+) 100 ML 100 ML @ 200 mls/ hr IVPB Q8HR [facility] Rx#: [id number] Ancef 2,000 MG In 100 / 100 Dextrose 5% 100 ML @ 200 mls/hr IVPB Q8H [facility] Rx#: [id number] Flagyl 500 MG/100 ML 500 100 / 100 100 / 100 mg In 100 ml @ 100 mls/hr IVPB Q8HR [facility] Rx#: [id number] Vancocin 1,500 MG In 250 / 250 Dextrose 5% 250 ML @ 166. 67 mls/hr IVPB Q12H [facility] Rx#:[id number] Oral 120 / 120 Output: Urine 400 / 400 Catheter 750 / 750 400 / 400 1500 / 1500 Other: Weight 88.269 kg Blood Glucose* 232 209 207 Patient Weight 08/14/16 23:59 Weight 88.269 kg - Labs CBC & BMP: 08/14/16 05:55 08/14/16 13:10 Labs: Abnormal lab results RBC 4.16 M/mcL (4.19-5.50) L 08/14/16 05:55 Hgb 12.5 g/dL (12.9-16.9) L 08/14/16 05:55 Hct 35.8 % (37.5-50.1) L 08/14/16 05:55 Band Neutrophils % 8.0 % (0-4) H 08/12/16 03:24 Hyposegmented Neuts Present (Not Present) A 08/10/16 01:00 Reactive Lymphocytes Present (Not Present) A 08/14/16 05:55 Toxic Granulation Present (Not Present) A 08/12/16 03:24 Dohle Bodies Present (Not Present) A 08/12/16 03:24 Immature Plt Fraction 7.2 % (1.1-6.1) H 08/09/16 22:26 Poikilocytosis 1+ (Not Present) A 08/13/16 00:47 Anisocytosis 1+ (Not Present) A 08/13/16 00:47 PT 15.6 Seconds (9.4-12.1) H 08/09/16 18:51 APTT 58.1 Seconds (26.0-36.0) H 08/14/16 13:10 D-Dimer 4758 ng/mLFEU (0-500) H 08/09/16 12:47 ABG pH 7.46 pH Units (7.32-7.45) H 08/10/16 10:25 ABG pCO2 29 mmHg (35-45) L 08/10/16 10:25 ABG pO2 62 mmHg (85-104) L 08/10/16 10:25 ABG HCO3 20.6 mEQ/L (21-27) L 08/10/16 10:25 ABG O2 Saturation 93 % (95-98) L 08/10/16 10:25 ABG Base Excess -2.2 mEq/L (-2.0 to 3.0) L 08/10/16 10:25 VBG pH 7.52 pH Units (7.32-7.42) H 08/10/16 01:00 VBG pCO2 24 mmHg (41-51) L 08/10/16 01:00 VBG pO2 84 mmHg (25-40) H 08/10/16 01:00 VBG HCO3 19.6 mEq/L (21-27) L 08/10/16 01:00 Sodium 133 mEq/L (136-145) L 08/14/16 13:10 Potassium 2.9 mEq/L (3.5-4.5) L 08/14/16 13:10 Creatinine 0.66 mg/dL (0.72-1.25) L 08/14/16 13:10 Glucose 292 mg/dL (70-99) H 08/14/16 13:10 POC Glucose 207 (58-89) H 08/14/16 16:35 Hemoglobin A1c 8.3 % (-5.6) H 08/09/16 12:47 Calcium 8.1 mg/dL (8.6-10.8) L 08/14/16 13:10 Ionized Calcium 0.96 mmol/L (1.15-1.35) L 08/11/16 05:44 Phosphorus 2.0 mg/dL (2.3-4.7) L 08/14/16 13:10 Magnesium 1.3 mg/dL (1.6-2.6) L 08/14/16 13:10 Ferritin 3440 ng/ml (22-275) H 08/12/16 03:24 AST 40 Units/L (5-34) H 08/09/16 02:10 Creatine Kinase 294 Units/L (30-200) H 08/09/16 02:10 Troponin I 0.17 ng/mL (0-0.03) H* 08/09/16 12:47 C-Reactive Protein 269 mg/L (Less than 5) H 08/09/16 12:47 Albumin 3.4 g/dL (3.5-5.0) L 08/09/16 02:10 Globulin 4.0 g/dL (2.4-3.5) H 08/09/16 02:10 Albumin/Globulin Ratio 0.9 (1.1-2.2) L 08/09/16 02:10 Beta-Hydroxybutyric Acd 1.33 mmol/L (0.02-0.27) H 08/09/16 12:47 Ur Specific [place] > 1.030 (1.010-1.025) H 08/09/16 06:14 Urine Protein 100 mg/dL (Neg-Trace) H 08/09/16 06:14 Urine Glucose (UA) >=1000 mg/dL (Normal) H 08/09/16 06:14 Urine Ketones 40 mg/dL (Negative) H 08/09/16 06:14 Urine Blood Large (Negative) H 08/09/16 06:14 Urine Microscopic RBC 5-15 per hpf (0-3) H 08/09/16 06:14 Urine Microscopic WBC 3-5 per hpf (0-3) H 08/09/16 06:14 Ur Squamous Epith Cells Moderate per lpf (None-Few) H 08/09/16 06:14 CSF RBC < 0 RBC/mcL (0-1) L 08/11/16 11:54 Stool EAEC (PCR) DETECTED (Not detect) A 08/13/16 01:01 Vancomycin Trough 8.9 mcg/mL (10-20) L 08/11/16 13:05 Staphylococcus sp PCR DETECTED (Not Detect) A 08/11/16 20:40 Staph aureus (PCR) DETECTED (Not Detect) A 08/11/16 20:40 - VTE Documentation of Mechanical Device: Intermittent pneumatic compression device Consult Discharge Plan - Plan [facility]errals: [facility] [Primary Care Provider] -
[2016-08-14] MEDS: Ibuprofen 600 MG TABLET PO PRN (19:30)
[2016-08-14] MEDS ORDERED: Ondansetron ODT 4 MG TAB.RAPDIS SL PRN (19:58)
[2016-08-14] MEDS ORDERED: *HR* Dextrose 50 % in Water (Syg) 50 ML SYRINGE IVP PRN (19:58)
[2016-08-14] MEDS ORDERED: Acetaminophen 650 MG RECTAL SUPP RC PRN (19:58)
[2016-08-14] MEDS ORDERED: Dextrose Gel 15 GM PO PRN ×2 (19:58)
[2016-08-14] MEDS ORDERED: D5% in Water 1,000 ML IVC PRN (19:58)
[2016-08-14] MEDS ORDERED: Naloxone 0.4 MG/ML INJ IVP PRN (19:58)
[2016-08-14] MEDS: Metoprolol XL (24 HR) Succ 50 MG TAB.ER.24H PO SCH (22:56)
[2016-08-14] MEDS: Insulin DETEMIR 100 UNIT/ML X5UNITS SQ SCH (23:02)
[2016-08-14] MEDS: ceFAZolin 2,000 MG in D5% in Water 100 ML IVPB SCH (23:02)
[2016-08-15] MEDS: Gentamicin 80 MG in 0.9 % Sodium Chloride 100 ML IVPB SCH ×3 (00:09→14:21)
[2016-08-15] MEDS: MetroNIDAZOLE 500 MG/100 ML 500 MG/100 ML BAG IVPB SCH ×3 (01:05→14:59)
[2016-08-15] MEDS: ceFAZolin 2,000 MG in D5% in Water 100 ML IVPB SCH ×3 (05:25→21:04)
[2016-08-15 07:12] LABS: Basophils % 0.2 %; Eosinophils % 0.5 %; Hematocrit 34.8 % (37.5-50.1); Hemoglobin 11.9 g/dL (12.9-16.9); Lymphocytes # 1.4 K/mcL (0.6-4.6); Mean Corpuscular HGB Conc 34.2 g/dL (31.6-35.5); Mean Corpuscular Hemoglobin 29.9 pg (28.0-33.3); Mean Corpuscular Volume 87.4 fL (83.0-100.0); Mean Platelet Volume 10.6 fL (9.4-12.4); Monocytes % 11.9 %; Neutrophils # 5.9 K/mcL (1.6-8.9); Platelet Count 220 K/mcL (140-400); Red Blood Count 3.98 M/mcL (4.19-5.50); Red Cell Distribution Width 13.9 % (11.5-14.5); Segmented Neutrophils % 69.4 %
[2016-08-15 07:19] LABS: BUN/Creatinine Ratio 26 (6-26); Blood Urea Nitrogen 14 mg/dL (8-26); Calcium 7.9 mg/dL (8.6-10.8); Carbon Dioxide 20 mEq/L (19-29); Chloride 104 mEq/L (98-109); Glucose 83 mg/dL (70-99); Osmolality,Calculated 280 (280-300); Potassium 2.9 mEq/L (3.5-4.5); Sodium 135 mEq/L (136-145); eGFR For African Americans > 60 (> 60); eGFR For Non-African Americans > 60 (> 60)
[2016-08-15] MEDS: Aspirin 81 MG TAB.CHEW PO SCH (08:01)
[2016-08-15] MEDS: Insulin LISPRO 300 UNITS/3 ML VIAL SQ SCH ×7 (08:02→21:08)
[2016-08-15] MEDS: Cholecalciferol (D-3) 1,000 UNIT TABLET PO SCH (08:02)
[2016-08-15] MEDS: Metoprolol XL (24 HR) Succ 50 MG TAB.ER.24H PO SCH ×2 (08:02→21:10)
[2016-08-15] MEDS: 0.9 % Sodium Chloride 1,000 ML IVC SCH (08:03)
[2016-08-15 08:08] LABS: Reactive Lymphocytes Present (Not Present)
[2016-08-15] MEDS: Ibuprofen 600 MG TABLET PO PRN (08:08)
[2016-08-15 08:10] LABS: Platelet Estimate Normal (Normal)
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
--- NOTE | 2016-08-15 10:50 | Infectious Disease Progress No ---
Date of Encounter: 08/15/16 Time of Encounter: 10:48 - Assessment and Plan (1) Sepsis Current Visit: Yes Status: Acute Severe sepsis: The patient had two SIRS criteria plus encephalopathy and thrombocytopenia. Patient has been afebrile for >12 hours. Thrombocytopenia has resolved. Encephalopathy is improved. Likely secondary to bacteremia and endocarditis. Blood culture drawn 08/09/16 is positive 1/1 set for MSSA. Repeat cultures drawn 08/10/16 are positive 2/2 sets for MSSA. Repeat blood cultures x 2 sets drawn 08/11/16 are positive again. Repeat blood cultures drawn 08/13/16 are positive 1/2 sets. Additional set of blood cultures drawn 08/15/16 x 2 sets are pending. Qualifiers: Qualified Code(s): A41.01 - Sepsis due to Methicillin susceptible Staphylococcus aureus (2) Bacteremia Current Visit: Yes Status: Acute Blood culture drawn 08/09/16 is positive 1/1 set for MSSA. Repeat cultures drawn 08/10/16 are positive 2/2 sets. Additional blood cultures drawn 08/11/16 are also positive 2/2 sets. Repeat blood cultures drawn 08/13/16 are positive 1/2 sets again. Additional blood cultures drawn 08/15/16 are pending x 2 sets. The patient has two major and two minor Modified Sorto's Criteria --> definitive IE. TTE negative for valvular dysfunction, DANTE completed 08/14/16 shows vegetation on the mitral valve. Continue cefazolin 2 grams IV Q8H for 6 weeks plus Gentamicin 1mg/kg IV Q8H for 5 days (day 1). Await repeat cultures. Duration of treatment depends on the clinical picture, but will require 6 weeks of IV antibiotic due to IE. Monitor renal function and for drug toxicity. (3) Endocarditis Current Visit: Yes Status: Acute Status post DANTE 08/15/16 that showed small echodensity on the mitral valve that is concerning for vegetation. Likely the source of the patient's persistent bacteremia and fevers. The patient has two major and one minor Modified Sorto's Criteria --> definitive IE. Continue antibiotics as above. Duration of treatment depends on the clinical picture, but likely 6 weeks of IV antibiotics. Repeat DANTE post-treatment. Qualifiers: Qualified Code(s): I33.0 - Acute and subacute infective endocarditis (4) Right wrist pain Current Visit: Yes Status: Acute Erythema, edema, and pain noted to the right wrist. Concern for cellulitis vs. septic arthritis vs. gout. X-ray negative for bony abnormality. CT of the wrist shows no evidence of septic arthritis. Ortho consulted --> aspiration would likely be unyielding at this point since the patient has been on IV antibiotics. Further management per the ortho service. Edema and erythema improved. (5) Metabolic encephalopathy Current Visit: Yes Status: Acute Improved. Likely secondary to sepsis. CT and MRI of the brain are negative. Continue to monitor closely. (6) Diverticulitis Current Visit: Yes Status: Suspected CT of the abdomen and pelvis shows findings consistent with diverticulosis with suspected diverticulitis. Abdominal exam benign. Aztreonam discontinued per the primary team. Continue Flagyl as currently prescribed (day 6). Complete a 7 day course, then discontinue. Further management per the primary team. Qualifiers: Qualified Code(s): K57.92 - Diverticulitis of intestine, part unspecified, without perforation or abscess without bleeding (7) Cardiomyopathy Current Visit: Yes Status: Acute TTE showed EF of 30%. Etiology unclear: ischemic vs. stress-induced. Cardiology consulted and following. Qualifiers: Qualified Code(s): I42.9 - Cardiomyopathy, unspecified (8) Elevated troponin Current Visit: Yes Status: Acute Cardiology consulted and following. (9) Hypoxemia Current Visit: Yes Status: Acute Likely secondary to fluid overload. Improved. Management per the primary team. (10) Thrombocytopenia Current Visit: Yes Status: Acute Likely secondary to sepsis. Resolved. No evidence of bleeding noted on exam. Continue to trend. (11) Hyponatremia Current Visit: Yes Status: Acute (12) Urinary incontinence Current Visit: Yes Status: Chronic Qualifiers: Qualified Code(s): R32 - Unspecified urinary incontinence (13) Hypertension Current Visit: Yes Status: Chronic Qualifiers: Qualified Code(s): I10 - Essential (primary) hypertension (14) Hypokalemia Current Visit: Yes Status: Acute K 2.9 this morning. Management per the primary team. - Subjective Interval history: Patient seen and examined. No acute events noted overnight. Patient moved out of ICU yesterday. More alert today. States he feels okay this morning. Patient had a low-grade fever last evening. Status post DANTE 08/14/16 that revealed vegetation on the mitral valve with mitral regurgitation. Complains of multiple chronic pain issues - left LE, right wrist intermittently for several years, and neck pain. Denies chest pain or shortness of breath. Reports productive cough. Denies nausea, vomiting, or constipation. Reports BM two days ago. Denies abdominal pain. Denies oral thrush or new skin lesions. Infect Dis PN-Objective Data - Labs CBC & Chem 7: 08/15/16 06:55 08/15/16 06:55 Labs: Laboratory Results - last 24 hr 08/11/16 08/14/16 08/14/16 13:05 11:31 13:10 WBC RBC Hgb Hct MCV MCH MCHC RDW Plt Count MPV Immature Gran % Seg Neutrophils % Lymphocytes % Monocytes % Eosinophils % Basophils % Neutrophils # Lymphocytes # Monocytes # Eosinophils # Basophils # Reactive Lymphocytes Platelet Estimate APTT Sodium 133 L Potassium 2.9 L Chloride 99 Carbon Dioxide 24 BUN 17 Creatinine 0.66 L Est GFR ( Amer) > 60 Est GFR (Non-Af Amer) > 60 BUN/Creatinine Ratio 26 Glucose 292 H POC Glucose 209 H Calculated Osmolality 288 Calcium 8.1 L Phosphorus 2.0 L Magnesium 1.3 L CMV IgG Ab 7.70 CMV IgM Ab <8.0 08/14/16 08/14/16 08/14/16 13:10 16:35 20:52 WBC RBC Hgb Hct MCV MCH MCHC RDW Plt Count MPV Immature Gran % Seg Neutrophils % Lymphocytes % Monocytes % Eosinophils % Basophils % Neutrophils # Lymphocytes # Monocytes # Eosinophils # Basophils # Reactive Lymphocytes Platelet Estimate APTT 58.1 H Sodium Potassium Chloride Carbon Dioxide BUN Creatinine Est GFR ( Amer) Est GFR (Non-Af Amer) BUN/Creatinine Ratio Glucose POC Glucose 207 H 204 H Calculated Osmolality Calcium Phosphorus Magnesium CMV IgG Ab CMV IgM Ab 08/15/16 08/15/16 08/15/16 06:55 06:55 07:43 WBC 8.5 RBC 3.98 L Hgb 11.9 L Hct 34.8 L MCV 87.4 MCH 29.9 MCHC 34.2 RDW 13.9 Plt Count 220 MPV 10.6 Immature Gran % 2.0 Seg Neutrophils % 69.4 Lymphocytes % 16.0 Monocytes % 11.9 Eosinophils % 0.5 Basophils % 0.2 Neutrophils # 5.9 Lymphocytes # 1.4 Monocytes # 1.0 Eosinophils # 0.0 Basophils # 0.0 Reactive Lymphocytes Present A Platelet Estimate Normal APTT Sodium 135 L Potassium 2.9 L Chloride 104 Carbon Dioxide 20 BUN 14 Creatinine 0.53 L Est GFR ( Amer) > 60 Est GFR (Non-Af Amer) > 60 BUN/Creatinine Ratio 26 Glucose 83 POC Glucose 77 Calculated Osmolality 280 Calcium 7.9 L Phosphorus Magnesium CMV IgG Ab CMV IgM Ab Cultures: Cultures 08/13/16 10:18 Blood Culture - Final Peripheral Venipuncture No growth. 08/11/16 20:50 Blood Culture - Final Peripheral Venipuncture Staphylococcus aureus 08/13/16 10:11 Blood Culture - Final Peripheral Venipuncture Staphylococcus aureus 08/11/16 20:40 Blood Culture - Final Peripheral Venipuncture Staphylococcus aureus 08/11/16 11:54 Gram Stain - Final Cerebral Spinal Fluid CSF Culture - Final 08/09/16 22:26 Blood Culture - Final Peripheral Venipuncture Staphylococcus aureus 08/10/16 00:55 Blood Culture - Final Peripheral Venipuncture Staphylococcus aureus 08/10/16 01:00 Blood Culture - Final Peripheral Venipuncture Staphylococcus aureus 08/11/16 11:54 Cryptococcal Antigen - Final Cerebral Spinal Fluid Serology 08/13/16 08/11/16 08/11/16 Range/Units 01:01 20:40 13:05 Fluid Source Fluid Volume Fluid Appearance Fluid RBC Fld Tot Nucleated Cell Fluid Seg Neutrophil % Fld Band Neutrophil % Fluid Lymphocytes % Fluid Monocytes % Fluid Eosinophils % Fluid Basophils % Fluid Other Cells % CSF Volume mL CSF Appearance (Clear) CSF Color (Colorless) CSF RBC (0-1) RBC/mcL CSF Tot Nucleated Cells (0-5) TNC/mcL CSF Seg Neutrophils CSF Band Neutrophils % CSF Lymphocytes % CSF Monocytes % CSF Eosinophils % CSF Basophils % CSF Other Cells % CSF Glucose CSF Xanth Comm (Not Observe) CSF Total Protein Stl C. cayetanensis PCR Not detected (Not detect) Stool Rotavirus A PCR Not detected (Not detect) Stl Adenov F 40/41 PCR Not detected (Not detect) Stool Astrovirus (PCR) Not detected (Not detect) Stool Campylobacter PCR Not detected (Not detect) Stl C. diff Tox A/B PCR Not detected (Not detect) Stool Cryptosporidium PCR Not detected (Not detect) Stl Sh Tox Pr E STEC PCR Not detected (Not detect) Stool E coli O157 PCR Not detected (Not detect) Stl Enterotoxigenic E PCR Not detected (Not detect) Stool EPEC (PCR) Not detected (Not detect) Stool EAEC (PCR) DETECTED A (Not detect) Stl E. histolytica PCR Not detected (Not detect) Stool Giardia Lamblia PCR Not detected (Not detect) Stool Salmonella PCR Not detected (Not detect) Stool Sapovirus (PCR) Not detected (Not detect) Stl P. shigelloides PCR Not detected (Not detect) Stl Shigella/EIEC PCR Not detected (Not detect) St Y.enterocolitica PCR Not detected (Not detect) Stool Vibrio (PCR) Not detected (Not detect) Stl Vibrio cholerae PCR Not detected (Not detect) Stl Norovirus GI/GII PCR Not detected (Not detect) Stl GI Panel (PCR) Com See below A. baumannii (PCR) Not Detected (Not Detect) Chlamy pneumoniae PCR (Not Detect) Adenovirus (PCR) (Not Detect) B. pertussis DNA (PCR) (Not Detect) Gill albicans (PCR) Not Detected (Not Detect) C. glabrata (PCR) Not Detected (Not Detect) C. krusei (PCR) Not Detected (Not Detect) C. parapsilosis (PCR) Not Detected (Not Detect) C. tropicalis (PCR) Not Detected (Not Detect) Coronavirus OC43 (PCR) (Not Detect) Coronavirus HKU1 (PCR) (Not Detect) Coronavirus 229E (PCR) (Not Detect) Coronavirus NL63 (PCR) (Not Detect) CMV IgG Ab 7.70 U/mL CMV IgM Ab <8.0 (<=29.9) AU/mL Enterobacteriac sp PCR Not Detected (Not Detect) E. cloacae complex PCR Not Detected (Not Detect) Enterococcus sp PCR Not Detected (Not Detect) E. coli (PCR) Not Detected (Not Detect) H. influenzae (PCR) Not Detected (Not Detect) HIV Ag/Ab Combo Qual (Nonreactive) Human Metapneumovirus (Not Detect) Influenza A (H1) PCR (Not Detect) Influ A (H1N1/09) PCR (Not Detect) Influenza A (H3) PCR (Not Detect) Influenza A Untype (PCR) (Not Detect) Influenza Type B (PCR) (Not Detect) Klebsiella oxytoca PCR Not Detected (Not Detect) Klebsiella pneumoniae Not Detected (Not Detect) List. monocytogenes PCR Not Detected (Not Detect) M.pneumoniae DNA (PCR) (Not Detect) N. meningitidis (PCR) Not Detected (Not Detect) Parainfluenza 1 (PCR) (Not Detect) Parainfluenza 2 (PCR) (Not Detect) Parainfluenza 3 (PCR) (Not Detect) Parainfluenza 4 (PCR) (Not Detect) Proteus species (PCR) Not Detected (Not Detect) RSV (PCR) (Not Detect) Entero/Rhino (PCR) (Not Detect) Serratia marcescens PCR Not Detected (Not Detect) Staphylococcus sp PCR DETECTED A (Not Detect) Staph aureus (PCR) DETECTED A (Not Detect) mecA-Methicil Res Gene Not Detected (Not Detect) Streptococcus sp PCR Not Detected (Not Detect) Group A Strep DNA Not Detected (Not Detect) Group B Strep (PCR) Not Detected (Not Detect) Strep pneumoniae (PCR) Not Detected (Not Detect) P. aeruginosa (PCR) Not Detected (Not Detect) Batsheva/B-Vanco Res Genes N/A (Not Detect) KPC (blaKPC) Detect PCR N/A (Not Detect) 08/11/16 08/11/16 08/09/16 Range/Units 11:54 11:54 22:26 Fluid Source Test Not Performed Fluid Volume Test Not Performed Fluid Appearance Test Not Performed Fluid RBC TNP Fld Tot Nucleated Cell TNP Fluid Seg Neutrophil % Test Not Performed Fld Band Neutrophil % Test Not Performed Fluid Lymphocytes % Test Not Performed Fluid Monocytes % Test Not Performed Fluid Eosinophils % Test Not Performed Fluid Basophils % Test Not Performed Fluid Other Cells % Test Not Performed CSF Volume 8.0 mL CSF Appearance Clear (Clear) CSF Color Colorless (Colorless) CSF RBC < 0 L (0-1) RBC/mcL CSF Tot Nucleated Cells 3 (0-5) TNC/mcL CSF Seg Neutrophils TNP CSF Band Neutrophils % TNP CSF Lymphocytes % TNP CSF Monocytes % TNP CSF Eosinophils % TNP CSF Basophils % TNP CSF Other Cells % TNP CSF Glucose TNP CSF Xanth Comm Not Observed (Not Observe) CSF Total Protein TNP Stl C. cayetanensis PCR (Not detect) Stool Rotavirus A PCR (Not detect) Stl Adenov F 40/41 PCR (Not detect) Stool Astrovirus (PCR) (Not detect) Stool Campylobacter PCR (Not detect) Stl C. diff Tox A/B PCR (Not detect) Stool Cryptosporidium PCR (Not detect) Stl Sh Tox Pr E STEC PCR (Not detect) Stool E coli O157 PCR (Not detect) Stl Enterotoxigenic E PCR (Not detect) Stool EPEC (PCR) (Not detect) Stool EAEC (PCR) (Not detect) Stl E. histolytica PCR (Not detect) Stool Giardia Lamblia PCR (Not detect) Stool Salmonella PCR (Not detect) Stool Sapovirus (PCR) (Not detect) Stl P. shigelloides PCR (Not detect) Stl Shigella/EIEC PCR (Not detect) St Y.enterocolitica PCR (Not detect) Stool Vibrio (PCR) (Not detect) Stl Vibrio cholerae PCR (Not detect) Stl Norovirus GI/GII PCR (Not detect) Stl GI Panel (PCR) Com A. baumannii (PCR) Not Detected (Not Detect) Chlamy pneumoniae PCR (Not Detect) Adenovirus (PCR) (Not Detect) B. pertussis DNA (PCR) (Not Detect) Gill albicans (PCR) Not Detected (Not Detect) C. glabrata (PCR) Not Detected (Not Detect) C. krusei (PCR) Not Detected (Not Detect) C. parapsilosis (PCR) Not Detected (Not Detect) C. tropicalis (PCR) Not Detected (Not Detect) Coronavirus OC43 (PCR) (Not Detect) Coronavirus HKU1 (PCR) (Not Detect) Coronavirus 229E (PCR) (Not Detect) Coronavirus NL63 (PCR) (Not Detect) CMV IgG Ab U/mL CMV IgM Ab (<=29.9) AU/mL Enterobacteriac sp PCR Not Detected (Not Detect) E. cloacae complex PCR Not Detected (Not Detect) Enterococcus sp PCR Not Detected (Not Detect) E. coli (PCR) Not Detected (Not Detect) H. influenzae (PCR) Not Detected (Not Detect) HIV Ag/Ab Combo Qual (Nonreactive) Human Metapneumovirus (Not Detect) Influenza A (H1) PCR (Not Detect) Influ A (H1N1/09) PCR (Not Detect) Influenza A (H3) PCR (Not Detect) Influenza A Untype (PCR) (Not Detect) Influenza Type B (PCR) (Not Detect) Klebsiella oxytoca PCR Not Detected (Not Detect) Klebsiella pneumoniae Not Detected (Not Detect) List. monocytogenes PCR Not Detected (Not Detect) M.pneumoniae DNA (PCR) (Not Detect) N. meningitidis (PCR) Not Detected (Not Detect) Parainfluenza 1 (PCR) (Not Detect) Parainfluenza 2 (PCR) (Not Detect) Parainfluenza 3 (PCR) (Not Detect) Parainfluenza 4 (PCR) (Not Detect) Proteus species (PCR) Not Detected (Not Detect) RSV (PCR) (Not Detect) Entero/Rhino (PCR) (Not Detect) Serratia marcescens PCR Not Detected (Not Detect) Staphylococcus sp PCR DETECTED A (Not Detect) Staph aureus (PCR) DETECTED A (Not Detect) mecA-Methicil Res Gene Not Detected (Not Detect) Streptococcus sp PCR Not Detected (Not Detect) Group A Strep DNA Not Detected (Not Detect) Group B Strep (PCR) Not Detected (Not Detect) Strep pneumoniae (PCR) Not Detected (Not Detect) P. aeruginosa (PCR) Not Detected (Not Detect) Batsheva/B-Vanco Res Genes N/A (Not Detect) KPC (blaKPC) Detect PCR N/A (Not Detect) 08/09/16 08/09/16 Range/Units 19:53 18:57 Fluid Source Fluid Volume Fluid Appearance Fluid RBC Fld Tot Nucleated Cell Fluid Seg Neutrophil % Fld Band Neutrophil % Fluid Lymphocytes % Fluid Monocytes % Fluid Eosinophils % Fluid Basophils % Fluid Other Cells % CSF Volume mL CSF Appearance (Clear) CSF Color (Colorless) CSF RBC (0-1) RBC/mcL CSF Tot Nucleated Cells (0-5) TNC/mcL CSF Seg Neutrophils CSF Band Neutrophils % CSF Lymphocytes % CSF Monocytes % CSF Eosinophils % CSF Basophils % CSF Other Cells % CSF Glucose CSF Xanth Comm (Not Observe) CSF Total Protein Stl C. cayetanensis PCR (Not detect) Stool Rotavirus A PCR (Not detect) Stl Adenov F 40/41 PCR (Not detect) Stool Astrovirus (PCR) (Not detect) Stool Campylobacter PCR (Not detect) Stl C. diff Tox A/B PCR (Not detect) Stool Cryptosporidium PCR (Not detect) Stl Sh Tox Pr E STEC PCR (Not detect) Stool E coli O157 PCR (Not detect) Stl Enterotoxigenic E PCR (Not detect) Stool EPEC (PCR) (Not detect) Stool EAEC (PCR) (Not detect) Stl E. histolytica PCR (Not detect) Stool Giardia Lamblia PCR (Not detect) Stool Salmonella PCR (Not detect) Stool Sapovirus (PCR) (Not detect) Stl P. shigelloides PCR (Not detect) Stl Shigella/EIEC PCR (Not detect) St Y.enterocolitica PCR (Not detect) Stool Vibrio (PCR) (Not detect) Stl Vibrio cholerae PCR (Not detect) Stl Norovirus GI/GII PCR (Not detect) Stl GI Panel (PCR) Com A. baumannii (PCR) (Not Detect) Chlamy pneumoniae PCR Not Detected (Not Detect) Adenovirus (PCR) Not Detected (Not Detect) B. pertussis DNA (PCR) Not Detected (Not Detect) Gill albicans (PCR) (Not Detect) C. glabrata (PCR) (Not Detect) C. krusei (PCR) (Not Detect) C. parapsilosis (PCR) (Not Detect) C. tropicalis (PCR) (Not Detect) Coronavirus OC43 (PCR) Not Detected (Not Detect) Coronavirus HKU1 (PCR) Not Detected (Not Detect) Coronavirus 229E (PCR) Not Detected (Not Detect) Coronavirus NL63 (PCR) Not Detected (Not Detect) CMV IgG Ab U/mL CMV IgM Ab (<=29.9) AU/mL Enterobacteriac sp PCR (Not Detect) E. cloacae complex PCR (Not Detect) Enterococcus sp PCR (Not Detect) E. coli (PCR) (Not Detect) H. influenzae (PCR) (Not Detect) HIV Ag/Ab Combo Qual Nonreactive (Nonreactive) Human Metapneumovirus Not Detected (Not Detect) Influenza A (H1) PCR Not Detected (Not Detect) Influ A (H1N1/09) PCR Not Detected (Not Detect) Influenza A (H3) PCR Not Detected (Not Detect) Influenza A Untype (PCR) Not Detected (Not Detect) Influenza Type B (PCR) Not Detected (Not Detect) Klebsiella oxytoca PCR (Not Detect) Klebsiella pneumoniae (Not Detect) List. monocytogenes PCR (Not Detect) M.pneumoniae DNA (PCR) Not Detected (Not Detect) N. meningitidis (PCR) (Not Detect) Parainfluenza 1 (PCR) Not Detected (Not Detect) Parainfluenza 2 (PCR) Not Detected (Not Detect) Parainfluenza 3 (PCR) Not Detected (Not Detect) Parainfluenza 4 (PCR) Not Detected (Not Detect) Proteus species (PCR) (Not Detect) RSV (PCR) Not Detected (Not Detect) Entero/Rhino (PCR) Not Detected (Not Detect) Serratia marcescens PCR (Not Detect) Staphylococcus sp PCR (Not Detect) Staph aureus (PCR) (Not Detect) mecA-Methicil Res Gene (Not Detect) Streptococcus sp PCR (Not Detect) Group A Strep DNA (Not Detect) Group B Strep (PCR) (Not Detect) Strep pneumoniae (PCR) (Not Detect) P. aeruginosa (PCR) (Not Detect) Batsheva/B-Vanco Res Genes (Not Detect) KPC (blaKPC) Detect PCR (Not Detect) Exam - Constitutional Vitals: Temp Pulse Resp BP Pulse Ox 98.2 F 72 18 162/56 96 08/15/16 07:35 08/15/16 07:35 08/15/16 07:35 08/15/16 07:35 08/15/16 07:35 General appearance: average body habitus, cooperative, no acute distress - Head Head exam: Present: atraumatic, normal inspection, normocephalic - Eye Eye exam: Present: EOMI, normal appearance, PERRL Pupils: Present: normal accommodation Additional comments: No subconjunctival hemorrhage noted. - ENT ENT exam: Present: mucous membranes moist - Neck Neck exam: Present: normal inspection. Absent: lymphadenopathy, meningismus - Respiratory Respiratory exam: Present: CTAB. Absent: rales, respiratory distress, rhonchi, wheezes - Cardiovascular Cardiovascular exam: Present: RRR, +S1, +S2 - GI/Abdominal GI/Abdominal exam: Present: normal bowel sounds, soft. Absent: distended, tenderness Additional comments: Chavez catheter patent draining clear, dark yellow urine. - Extremities Exam Extremities exam: Present: joint swelling (Right wrist), normal inspection, tenderness (Right wrist). Absent: pedal edema Additional comments: No endocarditis stigmata noted. Right wrist still swollen and tender, but less erythematous. - Neurological Exam Neurological exam: Present: alert, oriented X3, no focal deficits - Psychiatric Psychiatric exam: Present: normal affect, normal mood - Skin Skin exam: Present: dry, intact, normal color, warm - VTE Documentation of Mechanical Device: Intermittent pneumatic compression device Consult Discharge Plan - Plan [facility]: [facility]Primary Care Provider[facility] -
--- NOTE | 2016-08-15 12:09 | ECHO - Doppler Report ---
Transesophageal Echocardiogram Name: Sergo Hemphill Loki Date of Study: 08/14/2016 Date: 1945 Ht: 70.0in Medical Record#: [id number] Age: 70 Wt: 194.0lb Gender: Male BSA: 2.06 Order #: [id number] Location: [facility] Room #: ICU11 Reading Physician: Saroj Urban MD, [facility] Director Broadcast: Kvng Gupta RN Ordering Physician: Tiffanie Naik MD Primary Physician: [facility] Indications: R/O Endocarditis Impressions: No evidence of patent foramen ovale. There is a small mass noted on the aortic valve suspicious for endocarditis. Left Ventricular Wall Motion: Rest Echo Findings All wall segments showed normal motion. Medication Given: Time Medication Dose Units Route 08:40 Versed 2 mg IV 08:40 Fentanyl 25 mcg IV Contrast Type Amount Agitated saline 20 Findings: Study Quality * Technically adequate exam. Tricuspid Valve * Normal structure and function. Interatrial Septum * No evidence of patent foramen ovale. ECG Findings * Sinus rhythm with BBB. Mitral Valve * Normal structure. * There is no mitral valve vegetation. * Trace/trivial mitral regurgitation. Left Atrium * LA appendage is normal in appearance. * The LA appendage flow velocity is normal. * Mildly dilated. Aortic Valve * The aortic valve is Tricuspid. * There is a small mass noted on the aortic side of the valve suspicious for vegetation . Pulmonic Valve * Normal structure. * trivial pulmonic regurgitation. * There is No pulmonic stenosis. Right Atrium * Within normal limits. Aorta * The aortic root is not dilated. Procedure Summary: After explaining the risks, benefits, and alternatives of the procedure to the patient in detail and answering all questions to satisfaction, an informed consent was obtained in writing. The patient was NPO for the six hours prior to the procedure. The patient denied dysphagia, odynophagia, and loose teeth. The patient was monitored with periodic automated blood pressures and continuous pulse oximetry and telemetry. Continuous oxygen was administered by PR. The patient was placed in the full upright position and the posterior oropharynx was anesthetized as above and complete suppression of the gag reflex was obtained. The patient was then placed in the left lateral decubitus position, the neck was flexed, and a bite block was placed in the patient's mouth. IV sedation was administered. Once adequate sedation was achieved, a well-lubricated anteflexed multipoint intraesophageal echocardiographic probe was inserted into the midline posterior oropharynx. Gentle pressure was applied as the patient swallowed and the esophagus was intubated without difficulty. The scope was advanced to the mid esophagus without encountering resistance. Images were obtained from the mid and upper esophagus. Images from the gastric globe were obtained. The intra-atrial septum was assessed by color-flow Doppler and agitated saline. The scope was then rotated approximately 180 degrees and withdrawn, visualizing the length of the aorta. The scope was then slowly withdrawn as the patient was continually suctioned. The patient tolerated the procedure well. Complications: None History: Hypertension Diabetes Hypercholesteremia Myocardial Infarction Previous Echo08/09/2016 BP 155 / 88 Updated by Saroj Urban MD, FACC on 08/15/2016 12:00:57 PM electronically signed on 08/15/2016 12:03:01 PM with status of Final Wall Motion Strong: 1=Normal, 2=Hypokinesis, 3=Akinesis, 4=Dyskinesis, 5=Aneurysmal, 6=Hyperkinetic, X=Not Visualized (Blank)=Missing
[2016-08-15] MEDS: Potassium Chloride 40 MEQ, Lidocaine 1% 2 ML in D5% in Water 500 ML IVPB SCH ×2 (15:52→21:02)
--- NOTE | 2016-08-15 17:42 | Internal Med Progress Note ---
Date of Encounter: 08/15/16 Time of Encounter: 17:40 - Assessment and plan (1) Elevated troponin Current Visit: Yes Status: Acute (2) Cardiomyopathy Current Visit: Yes Status: Acute Qualifiers: Cardiomyopathy type: unspecified Qualified Code(s): I42.9 - Cardiomyopathy , unspecified (3) Atrial fibrillation Current Visit: Yes Status: Acute Assessment and plan: stable for now. He is a CHADS VAsc=3 for age, HTN, DM. Ideally he should be on anticoagulation. on Asa 81 mg daily for fall risk. will continue the metoprolol. 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 DANTE final report pending. No need for surgery at this time. ID following. Pt being set up to transfer to [place] for 6 weeks of IV antibiotics. Fevers resolved. Repeat blood cultures positive 3/4 for staph aureus. Appreciate ID recommendation. Qualifiers: Infective endocarditis organism: bacterial Chronicity: acute Qualified Code(s): I33.0 - Acute and subacute infective endocarditis - Time Spent With Patient 25 - 35 minutes - Subjective Interval history: Patient seen at the bedside, denies any complaints at this time. Transferred from ICU yesterday, being treated for bacteremia with infective endocarditis. Being followed by ID, cardio and orthopedics. - Constitutional Vitals: Temp Pulse Resp BP Pulse Ox 96.7 F L 66 27 174/87 95 08/15/16 16:04 08/15/16 16:04 08/15/16 16:04 08/15/16 16:04 08/15/16 16:04 General appearance: Absent: A&O X 3 (confused, drowsy) Exam: HEENT: Atraumatic, Normocephaly, Mucus Membranes Moist Neck: No JVD, Normal carotid pulses Cardiac: Reg Rate and Rhythm, Normal S1 and S2, No Murmur Lungs: Normal Breath Sounds, No Wheeze, Rales, Rhonchi Neuro: Alert and responsive, No focal deficits noted Abdomen: Soft, Non-Tender, bs are present, Skin: No rashes noted on visualized skin Musculoskeletal: No Chest Wall Tenderness Extremities: No Clubbing, No Cyanosis, Normal Pulses, Other (Trace BLE edema) Internal Medicine: Result - Labs CBC & Chem 7: 08/15/16 06:55 08/15/16 06:55 Labs: Short CBC 08/15/16 Range/Units 06:55 WBC 8.5 (4.3-11.1) K/mcL Hgb 11.9 L (12.9-16.9) g/dL Hct 34.8 L (37.5-50.1) % Plt Count 220 (140-400) K/mcL Neutrophils # 5.9 (1.6-8.9) K/mcL BMP 08/15/16 06:55 Sodium 135 L Potassium 2.9 L Chloride 104 Carbon Dioxide 20 BUN 14 Creatinine 0.53 L Glucose 83 Calcium 7.9 L - ABG Interpretation ABG results: ABG ABG pH 7.46 pH Units (7.32-7.45) H 08/10/16 10:25 ABG pCO2 29 mmHg (35-45) L 08/10/16 10:25 ABG pO2 62 mmHg (85-104) L 08/10/16 10:25 ABG O2 Saturation 93 % (95-98) L 08/10/16 10:25 PT/INR, D-dimer PT 15.6 Seconds (9.4-12.1) H 08/09/16 18:51 D-Dimer 4758 ng/mLFEU (0-500) H 08/09/16 12:47 - VTE Documentation of Mechanical Device: Intermittent pneumatic compression device Consult Discharge Plan - Plan [facility]errals: [facility] [Primary Care Provider] -
[2016-08-15] MEDS: Methocarbamol 500 MG TABLET PO SCH (19:53)
[2016-08-15] MEDS: Insulin DETEMIR 100 UNIT/ML X5UNITS SQ SCH (21:07)
[2016-08-16] MEDS: Methocarbamol 500 MG TABLET PO SCH ×4 (00:06→23:09)
[2016-08-16] MEDS: Gentamicin 80 MG in 0.9 % Sodium Chloride 100 ML IVPB SCH ×4 (00:07→23:09)
[2016-08-16] MEDS: MetroNIDAZOLE 500 MG/100 ML 500 MG/100 ML BAG IVPB SCH ×3 (00:11→15:01)
[2016-08-16] MEDS: Ibuprofen 600 MG TABLET PO PRN (00:18)
[2016-08-16] MEDS: Potassium Chloride 40 MEQ, Lidocaine 1% 2 ML in D5% in Water 500 ML IVPB SCH (02:24)
[2016-08-16] MEDS: ceFAZolin 2,000 MG in D5% in Water 100 ML IVPB SCH ×3 (06:07→22:22)
[2016-08-16] MEDS: Aspirin 81 MG TAB.CHEW PO SCH (07:58)
[2016-08-16] MEDS: Cholecalciferol (D-3) 1,000 UNIT TABLET PO SCH (07:58)
[2016-08-16] MEDS: Metoprolol XL (24 HR) Succ 50 MG TAB.ER.24H PO SCH ×2 (07:58→20:16)
[2016-08-16] MEDS: Insulin LISPRO 300 UNITS/3 ML VIAL SQ SCH ×7 (07:59→22:25)
[2016-08-16 08:45] LABS: Basophils % 0.4 %; Eosinophils # 0.1 K/mcL (0.0-0.6); Eosinophils % 0.7 %; Immature Granulocytes % 2.7 % (0-4); Immature Platelets 2.9 % (1.1-6.1); Lymphocytes # 1.6 K/mcL (0.6-4.6); Lymphocytes % 19.7 %; Mean Corpuscular HGB Conc 33.3 g/dL (31.6-35.5); Mean Corpuscular Hemoglobin 29.5 pg (28.0-33.3); Mean Corpuscular Volume 88.5 fL (83.0-100.0); Mean Platelet Volume 9.9 fL (9.4-12.4); Monocytes # 0.9 K/mcL (0.0-1.3); Monocytes % 10.7 %; Neutrophils # 5.3 K/mcL (1.6-8.9); Platelet Count 249 K/mcL (140-400); Red Blood Count 4.07 M/mcL (4.19-5.50); Red Cell Distribution Width 13.8 % (11.5-14.5); Segmented Neutrophils % 65.8 %
[2016-08-16 08:58] LABS: BUN/Creatinine Ratio 19 (6-26); Blood Urea Nitrogen 13 mg/dL (8-26); Calcium 7.9 mg/dL (8.6-10.8); Carbon Dioxide 21 mEq/L (19-29); Chloride 103 mEq/L (98-109); Glucose 249 mg/dL (70-99); Osmolality,Calculated 282 (280-300); Potassium 3.8 mEq/L (3.5-4.5); Sodium 132 mEq/L (136-145); eGFR For African Americans > 60 (> 60); eGFR For Non-African Americans > 60 (> 60)
[2016-08-16 09:49] LABS: Platelet Estimate Normal (Normal); Toxic Granulation Present (Not Present)
--- NOTE | 2016-08-16 11:26 | Infectious Disease Progress No ---
Date of Encounter: 08/15/16 Time of Encounter: 11:24 - Assessment and Plan (1) Sepsis Current Visit: Yes Status: Acute Severe sepsis: The patient had two SIRS criteria plus encephalopathy and thrombocytopenia. Patient spiked a fever last night of 101.2. Thrombocytopenia has resolved. Encephalopathy is improved. His WBC remains normal. Likely secondary to bacteremia and endocarditis. Blood culture drawn 08/09/16 is positive 1/1 set for MSSA. Repeat cultures drawn 08/10/16 are positive 2/2 sets for MSSA. Repeat blood cultures x 2 sets drawn 08/11/16 are positive again. Repeat blood cultures drawn 08/13/16 are positive 1/2 sets. Additional set of blood cultures drawn 08/15/16 x 2 sets are positive again 1/2 sets. Repeat blood cultures x 2 sets in the AM. Qualifiers: Sepsis type: methicillin susceptible Staphylococcus aureus Qualified Code(s ): A41.01 - Sepsis due to Methicillin susceptible Staphylococcus aureus (2) Bacteremia Current Visit: Yes Status: Acute Blood culture drawn 08/09/16 is positive 1/1 set for MSSA. Repeat cultures drawn 08/10/16 are positive 2/2 sets. Additional blood cultures drawn 08/11/16 are also positive 2/2 sets. Repeat blood cultures drawn 08/13/16 are positive 1/2 sets again. Additional blood cultures drawn 08/15/16 are positive 1/2 sets. Called Micro lab and checked the VAN on the Vancomycin which was two. This could explain why the patient continued to have persistent bacteremia. He was switched to IV cefazolin 08/14/16. Repeat blood cultures drawn <48 hours after antibiotics were switched. Repeat blood cultures x 2 sets in the morning. The patient has two major and two minor Modified Sorto's Criteria --> definitive IE. TTE negative for valvular dysfunction, DANTE completed 08/14/16 shows vegetation on the mitral valve. Continue cefazolin 2 grams IV Q8H for 6 weeks plus Gentamicin 1mg/kg IV Q8H for 5 days (day 3). Await repeat cultures. Duration of treatment depends on the clinical picture, but will require 6 weeks of IV antibiotic due to IE. Monitor renal function and for drug toxicity. (3) Endocarditis Current Visit: Yes Status: Acute Status post DANTE 08/15/16 that showed small echodensity on the mitral valve that is concerning for vegetation. Likely the source of the patient's persistent bacteremia and fevers. The patient has two major and one minor Modified Sorto's Criteria --> definitive IE. Continue antibiotics as above. Duration of treatment depends on the clinical picture, but likely 6 weeks of IV antibiotics. Repeat DANTE post-treatment. Qualifiers: Endocarditis type: infective Infective endocarditis organism: bacterial Chronicity: acute Qualified Code(s): I33.0 - Acute and subacute infective endocarditis (4) Right wrist pain Current Visit: Yes Status: Acute Erythema, edema, and pain noted to the right wrist. Concern for cellulitis vs. septic arthritis vs. gout. X-ray negative for bony abnormality. CT of the wrist shows no evidence of septic arthritis. Ortho consulted --> aspiration would likely be unyielding at this point since the patient has been on IV antibiotics. Further management per the ortho service. Edema and erythema improved. (5) Metabolic encephalopathy Current Visit: Yes Status: Resolved Improved. Likely secondary to sepsis. CT and MRI of the brain are negative. LP negative. Continue to monitor closely. (6) Diverticulitis Current Visit: Yes Status: Suspected CT of the abdomen and pelvis shows findings consistent with diverticulosis with suspected diverticulitis. Abdominal exam benign. Aztreonam discontinued per the primary team. Continue Flagyl as currently prescribed (day 7). Discontinue after last dose today. Further management per the primary team. Qualifiers: Diverticulitis site: unspecified part of intestinal tract Diverticulitis bleeding: without bleeding Diverticulitis complication: without perforation or abscess Qualified Code(s): K57.92 - Diverticulitis of intestine, part unspecified, without perforation or abscess without bleeding (7) Cardiomyopathy Current Visit: Yes Status: Acute TTE showed EF of 30%. Etiology unclear: ischemic vs. stress-induced. Cardiology consulted and following. Qualifiers: Cardiomyopathy type: unspecified Qualified Code(s): I42.9 - Cardiomyopathy , unspecified (8) Elevated troponin Current Visit: Yes Status: Acute Cardiology consulted and following. (9) Hypoxemia Current Visit: Yes Status: Resolved Likely secondary to fluid overload. Improved. Management per the primary team. (10) Thrombocytopenia Current Visit: Yes Status: Resolved Likely secondary to sepsis. Resolved. No evidence of bleeding noted on exam. Continue to trend. (11) Hyponatremia Current Visit: Yes Status: Resolved (12) Urinary incontinence Current Visit: Yes Status: Chronic Qualifiers: Urinary Incontinence type: unspecified incontinence Qualified Code(s): R32 - Unspecified urinary incontinence (13) Hypertension Current Visit: Yes Status: Chronic Qualifiers: Hypertension type: essential hypertension Qualified Code(s): I10 - Essential (primary) hypertension (14) Hypokalemia Current Visit: Yes Status: Resolved - Subjective Interval history: Patient seen and examined. No acute events noted overnight. Patient lying in bed , awake. Complains of neck pain and left leg pain - chronic. Also reports right wrist pain. Status post DANTE 08/14/16 that revealed vegetation on the mitral valve with mitral regurgitation. Denies chest pain or shortness of breath or cough. Denies nausea, vomiting, or constipation. Reports soft BM last night. Denies abdominal pain. Denies oral thrush or new skin lesions. Infect Dis PN-Objective Data - Labs CBC & Chem 7: 08/16/16 08:32 08/16/16 08:32 Labs: Laboratory Results - last 24 hr 08/15/16 08/15/16 08/15/16 11:34 16:04 20:44 WBC RBC Hgb Hct MCV MCH MCHC RDW Plt Count MPV Immature Gran % Seg Neutrophils % Lymphocytes % Monocytes % Eosinophils % Basophils % Neutrophils # Lymphocytes # Monocytes # Eosinophils # Basophils # Toxic Granulation Platelet Estimate Immature Plt Fraction Sodium Potassium Chloride Carbon Dioxide BUN Creatinine Est GFR ( Amer) Est GFR (Non-Af Amer) BUN/Creatinine Ratio Glucose POC Glucose 114 H 113 H 252 H Calculated Osmolality Calcium 08/16/16 08/16/16 08:32 08:32 WBC 8.0 RBC 4.07 L Hgb 12.0 L Hct 36.0 L MCV 88.5 MCH 29.5 MCHC 33.3 RDW 13.8 Plt Count 249 MPV 9.9 Immature Gran % 2.7 Seg Neutrophils % 65.8 Lymphocytes % 19.7 Monocytes % 10.7 Eosinophils % 0.7 Basophils % 0.4 Neutrophils # 5.3 Lymphocytes # 1.6 Monocytes # 0.9 Eosinophils # 0.1 Basophils # 0.0 Toxic Granulation Present A Platelet Estimate Normal Immature Plt Fraction 2.9 Sodium 132 L Potassium 3.8 Chloride 103 Carbon Dioxide 21 BUN 13 Creatinine 0.67 L Est GFR ( Amer) > 60 Est GFR (Non-Af Amer) > 60 BUN/Creatinine Ratio 19 Glucose 249 H POC Glucose Calculated Osmolality 282 Calcium 7.9 L Cultures: Cultures 08/15/16 06:55 Blood Culture - Preliminary Peripheral Venipuncture No growth. 08/15/16 07:00 Blood Culture - Preliminary Peripheral Venipuncture Gram Positive Cocci 08/13/16 10:18 Blood Culture - Final Peripheral Venipuncture No growth. 08/11/16 20:50 Blood Culture - Final Peripheral Venipuncture Staphylococcus aureus 08/13/16 10:11 Blood Culture - Final Peripheral Venipuncture Staphylococcus aureus 08/11/16 20:40 Blood Culture - Final Peripheral Venipuncture Staphylococcus aureus 08/11/16 11:54 Gram Stain - Final Cerebral Spinal Fluid CSF Culture - Final 08/09/16 22:26 Blood Culture - Final Peripheral Venipuncture Staphylococcus aureus 08/10/16 00:55 Blood Culture - Final Peripheral Venipuncture Staphylococcus aureus 08/10/16 01:00 Blood Culture - Final Peripheral Venipuncture Staphylococcus aureus 08/11/16 11:54 Cryptococcal Antigen - Final Cerebral Spinal Fluid Serology 08/13/16 08/11/16 08/11/16 Range/Units 01:01 20:40 13:05 Fluid Source Fluid Volume Fluid Appearance Fluid RBC Fld Tot Nucleated Cell Fluid Seg Neutrophil % Fld Band Neutrophil % Fluid Lymphocytes % Fluid Monocytes % Fluid Eosinophils % Fluid Basophils % Fluid Other Cells % CSF Volume mL CSF Appearance (Clear) CSF Color (Colorless) CSF RBC (0-1) RBC/mcL CSF Tot Nucleated Cells (0-5) TNC/mcL CSF Seg Neutrophils CSF Band Neutrophils % CSF Lymphocytes % CSF Monocytes % CSF Eosinophils % CSF Basophils % CSF Other Cells % CSF Glucose CSF Xanth Comm (Not Observe) CSF Total Protein Stl C. cayetanensis PCR Not detected (Not detect) Stool Rotavirus A PCR Not detected (Not detect) Stl Adenov F 40/41 PCR Not detected (Not detect) Stool Astrovirus (PCR) Not detected (Not detect) Stool Campylobacter PCR Not detected (Not detect) Stl C. diff Tox A/B PCR Not detected (Not detect) Stool Cryptosporidium PCR Not detected (Not detect) Stl Sh Tox Pr E STEC PCR Not detected (Not detect) Stool E coli O157 PCR Not detected (Not detect) Stl Enterotoxigenic E PCR Not detected (Not detect) Stool EPEC (PCR) Not detected (Not detect) Stool EAEC (PCR) DETECTED A (Not detect) Stl E. histolytica PCR Not detected (Not detect) Stool Giardia Lamblia PCR Not detected (Not detect) Stool Salmonella PCR Not detected (Not detect) Stool Sapovirus (PCR) Not detected (Not detect) Stl P. shigelloides PCR Not detected (Not detect) Stl Shigella/EIEC PCR Not detected (Not detect) St Y.enterocolitica PCR Not detected (Not detect) Stool Vibrio (PCR) Not detected (Not detect) Stl Vibrio cholerae PCR Not detected (Not detect) Stl Norovirus GI/GII PCR Not detected (Not detect) Stl GI Panel (PCR) Com See below A. baumannii (PCR) Not Detected (Not Detect) Chlamy pneumoniae PCR (Not Detect) Adenovirus (PCR) (Not Detect) B. pertussis DNA (PCR) (Not Detect) Gill albicans (PCR) Not Detected (Not Detect) C. glabrata (PCR) Not Detected (Not Detect) C. krusei (PCR) Not Detected (Not Detect) C. parapsilosis (PCR) Not Detected (Not Detect) C. tropicalis (PCR) Not Detected (Not Detect) Coronavirus OC43 (PCR) (Not Detect) Coronavirus HKU1 (PCR) (Not Detect) Coronavirus 229E (PCR) (Not Detect) Coronavirus NL63 (PCR) (Not Detect) CMV IgG Ab 7.70 U/mL CMV IgM Ab <8.0 (<=29.9) AU/mL Enterobacteriac sp PCR Not Detected (Not Detect) E. cloacae complex PCR Not Detected (Not Detect) Enterococcus sp PCR Not Detected (Not Detect) E. coli (PCR) Not Detected (Not Detect) H. influenzae (PCR) Not Detected (Not Detect) HIV Ag/Ab Combo Qual (Nonreactive) Human Metapneumovirus (Not Detect) Influenza A (H1) PCR (Not Detect) Influ A (H1N1/09) PCR (Not Detect) Influenza A (H3) PCR (Not Detect) Influenza A Untype (PCR) (Not Detect) Influenza Type B (PCR) (Not Detect) Klebsiella oxytoca PCR Not Detected (Not Detect) Klebsiella pneumoniae Not Detected (Not Detect) List. monocytogenes PCR Not Detected (Not Detect) M.pneumoniae DNA (PCR) (Not Detect) N. meningitidis (PCR) Not Detected (Not Detect) Parainfluenza 1 (PCR) (Not Detect) Parainfluenza 2 (PCR) (Not Detect) Parainfluenza 3 (PCR) (Not Detect) Parainfluenza 4 (PCR) (Not Detect) Proteus species (PCR) Not Detected (Not Detect) RSV (PCR) (Not Detect) Entero/Rhino (PCR) (Not Detect) Serratia marcescens PCR Not Detected (Not Detect) Staphylococcus sp PCR DETECTED A (Not Detect) Staph aureus (PCR) DETECTED A (Not Detect) mecA-Methicil Res Gene Not Detected (Not Detect) Streptococcus sp PCR Not Detected (Not Detect) Group A Strep DNA Not Detected (Not Detect) Group B Strep (PCR) Not Detected (Not Detect) Strep pneumoniae (PCR) Not Detected (Not Detect) P. aeruginosa (PCR) Not Detected (Not Detect) Batsheva/B-Vanco Res Genes N/A (Not Detect) KPC (blaKPC) Detect PCR N/A (Not Detect) 08/11/16 08/11/16 08/09/16 Range/Units 11:54 11:54 22:26 Fluid Source Test Not Performed Fluid Volume Test Not Performed Fluid Appearance Test Not Performed Fluid RBC TNP Fld Tot Nucleated Cell TNP Fluid Seg Neutrophil % Test Not Performed Fld Band Neutrophil % Test Not Performed Fluid Lymphocytes % Test Not Performed Fluid Monocytes % Test Not Performed Fluid Eosinophils % Test Not Performed Fluid Basophils % Test Not Performed Fluid Other Cells % Test Not Performed CSF Volume 8.0 mL CSF Appearance Clear (Clear) CSF Color Colorless (Colorless) CSF RBC < 0 L (0-1) RBC/mcL CSF Tot Nucleated Cells 3 (0-5) TNC/mcL CSF Seg Neutrophils TNP CSF Band Neutrophils % TNP CSF Lymphocytes % TNP CSF Monocytes % TNP CSF Eosinophils % TNP CSF Basophils % TNP CSF Other Cells % TNP CSF Glucose TNP CSF Xanth Comm Not Observed (Not Observe) CSF Total Protein TNP Stl C. cayetanensis PCR (Not detect) Stool Rotavirus A PCR (Not detect) Stl Adenov F 40/41 PCR (Not detect) Stool Astrovirus (PCR) (Not detect) Stool Campylobacter PCR (Not detect) Stl C. diff Tox A/B PCR (Not detect) Stool Cryptosporidium PCR (Not detect) Stl Sh Tox Pr E STEC PCR (Not detect) Stool E coli O157 PCR (Not detect) Stl Enterotoxigenic E PCR (Not detect) Stool EPEC (PCR) (Not detect) Stool EAEC (PCR) (Not detect) Stl E. histolytica PCR (Not detect) Stool Giardia Lamblia PCR (Not detect) Stool Salmonella PCR (Not detect) Stool Sapovirus (PCR) (Not detect) Stl P. shigelloides PCR (Not detect) Stl Shigella/EIEC PCR (Not detect) St Y.enterocolitica PCR (Not detect) Stool Vibrio (PCR) (Not detect) Stl Vibrio cholerae PCR (Not detect) Stl Norovirus GI/GII PCR (Not detect) Stl GI Panel (PCR) Com A. baumannii (PCR) Not Detected (Not Detect) Chlamy pneumoniae PCR (Not Detect) Adenovirus (PCR) (Not Detect) B. pertussis DNA (PCR) (Not Detect) Gill albicans (PCR) Not Detected (Not Detect) C. glabrata (PCR) Not Detected (Not Detect) C. krusei (PCR) Not Detected (Not Detect) C. parapsilosis (PCR) Not Detected (Not Detect) C. tropicalis (PCR) Not Detected (Not Detect) Coronavirus OC43 (PCR) (Not Detect) Coronavirus HKU1 (PCR) (Not Detect) Coronavirus 229E (PCR) (Not Detect) Coronavirus NL63 (PCR) (Not Detect) CMV IgG Ab U/mL CMV IgM Ab (<=29.9) AU/mL Enterobacteriac sp PCR Not Detected (Not Detect) E. cloacae complex PCR Not Detected (Not Detect) Enterococcus sp PCR Not Detected (Not Detect) E. coli (PCR) Not Detected (Not Detect) H. influenzae (PCR) Not Detected (Not Detect) HIV Ag/Ab Combo Qual (Nonreactive) Human Metapneumovirus (Not Detect) Influenza A (H1) PCR (Not Detect) Influ A (H1N1/09) PCR (Not Detect) Influenza A (H3) PCR (Not Detect) Influenza A Untype (PCR) (Not Detect) Influenza Type B (PCR) (Not Detect) Klebsiella oxytoca PCR Not Detected (Not Detect) Klebsiella pneumoniae Not Detected (Not Detect) List. monocytogenes PCR Not Detected (Not Detect) M.pneumoniae DNA (PCR) (Not Detect) N. meningitidis (PCR) Not Detected (Not Detect) Parainfluenza 1 (PCR) (Not Detect) Parainfluenza 2 (PCR) (Not Detect) Parainfluenza 3 (PCR) (Not Detect) Parainfluenza 4 (PCR) (Not Detect) Proteus species (PCR) Not Detected (Not Detect) RSV (PCR) (Not Detect) Entero/Rhino (PCR) (Not Detect) Serratia marcescens PCR Not Detected (Not Detect) Staphylococcus sp PCR DETECTED A (Not Detect) Staph aureus (PCR) DETECTED A (Not Detect) mecA-Methicil Res Gene Not Detected (Not Detect) Streptococcus sp PCR Not Detected (Not Detect) Group A Strep DNA Not Detected (Not Detect) Group B Strep (PCR) Not Detected (Not Detect) Strep pneumoniae (PCR) Not Detected (Not Detect) P. aeruginosa (PCR) Not Detected (Not Detect) Batsheva/B-Vanco Res Genes N/A (Not Detect) KPC (blaKPC) Detect PCR N/A (Not Detect) 08/09/16 08/09/16 Range/Units 19:53 18:57 Fluid Source Fluid Volume Fluid Appearance Fluid RBC Fld Tot Nucleated Cell Fluid Seg Neutrophil % Fld Band Neutrophil % Fluid Lymphocytes % Fluid Monocytes % Fluid Eosinophils % Fluid Basophils % Fluid Other Cells % CSF Volume mL CSF Appearance (Clear) CSF Color (Colorless) CSF RBC (0-1) RBC/mcL CSF Tot Nucleated Cells (0-5) TNC/mcL CSF Seg Neutrophils CSF Band Neutrophils % CSF Lymphocytes % CSF Monocytes % CSF Eosinophils % CSF Basophils % CSF Other Cells % CSF Glucose CSF Xanth Comm (Not Observe) CSF Total Protein Stl C. cayetanensis PCR (Not detect) Stool Rotavirus A PCR (Not detect) Stl Adenov F 40/41 PCR (Not detect) Stool Astrovirus (PCR) (Not detect) Stool Campylobacter PCR (Not detect) Stl C. diff Tox A/B PCR (Not detect) Stool Cryptosporidium PCR (Not detect) Stl Sh Tox Pr E STEC PCR (Not detect) Stool E coli O157 PCR (Not detect) Stl Enterotoxigenic E PCR (Not detect) Stool EPEC (PCR) (Not detect) Stool EAEC (PCR) (Not detect) Stl E. histolytica PCR (Not detect) Stool Giardia Lamblia PCR (Not detect) Stool Salmonella PCR (Not detect) Stool Sapovirus (PCR) (Not detect) Stl P. shigelloides PCR (Not detect) Stl Shigella/EIEC PCR (Not detect) St Y.enterocolitica PCR (Not detect) Stool Vibrio (PCR) (Not detect) Stl Vibrio cholerae PCR (Not detect) Stl Norovirus GI/GII PCR (Not detect) Stl GI Panel (PCR) Com A. baumannii (PCR) (Not Detect) Chlamy pneumoniae PCR Not Detected (Not Detect) Adenovirus (PCR) Not Detected (Not Detect) B. pertussis DNA (PCR) Not Detected (Not Detect) Gill albicans (PCR) (Not Detect) C. glabrata (PCR) (Not Detect) C. krusei (PCR) (Not Detect) C. parapsilosis (PCR) (Not Detect) C. tropicalis (PCR) (Not Detect) Coronavirus OC43 (PCR) Not Detected (Not Detect) Coronavirus HKU1 (PCR) Not Detected (Not Detect) Coronavirus 229E (PCR) Not Detected (Not Detect) Coronavirus NL63 (PCR) Not Detected (Not Detect) CMV IgG Ab U/mL CMV IgM Ab (<=29.9) AU/mL Enterobacteriac sp PCR (Not Detect) E. cloacae complex PCR (Not Detect) Enterococcus sp PCR (Not Detect) E. coli (PCR) (Not Detect) H. influenzae (PCR) (Not Detect) HIV Ag/Ab Combo Qual Nonreactive (Nonreactive) Human Metapneumovirus Not Detected (Not Detect) Influenza A (H1) PCR Not Detected (Not Detect) Influ A (H1N1/09) PCR Not Detected (Not Detect) Influenza A (H3) PCR Not Detected (Not Detect) Influenza A Untype (PCR) Not Detected (Not Detect) Influenza Type B (PCR) Not Detected (Not Detect) Klebsiella oxytoca PCR (Not Detect) Klebsiella pneumoniae (Not Detect) List. monocytogenes PCR (Not Detect) M.pneumoniae DNA (PCR) Not Detected (Not Detect) N. meningitidis (PCR) (Not Detect) Parainfluenza 1 (PCR) Not Detected (Not Detect) Parainfluenza 2 (PCR) Not Detected (Not Detect) Parainfluenza 3 (PCR) Not Detected (Not Detect) Parainfluenza 4 (PCR) Not Detected (Not Detect) Proteus species (PCR) (Not Detect) RSV (PCR) Not Detected (Not Detect) Entero/Rhino (PCR) Not Detected (Not Detect) Serratia marcescens PCR (Not Detect) Staphylococcus sp PCR (Not Detect) Staph aureus (PCR) (Not Detect) mecA-Methicil Res Gene (Not Detect) Streptococcus sp PCR (Not Detect) Group A Strep DNA (Not Detect) Group B Strep (PCR) (Not Detect) Strep pneumoniae (PCR) (Not Detect) P. aeruginosa (PCR) (Not Detect) Batsheva/B-Vanco Res Genes (Not Detect) KPC (blaKPC) Detect PCR (Not Detect) Exam - Constitutional Vitals: Temp Pulse Resp BP Pulse Ox 98.7 F 64 18 158/78 96 08/16/16 07:27 08/16/16 07:27 08/16/16 07:27 08/16/16 07:27 08/16/16 07:27 General appearance: average body habitus, cooperative, no acute distress - Head Head exam: Present: atraumatic, normal inspection, normocephalic - Eye Eye exam: Present: EOMI, normal appearance, PERRL Pupils: Present: normal accommodation Additional comments: No subconjunctival hemorrhage noted. - ENT ENT exam: Present: mucous membranes moist - Neck Neck exam: Present: normal inspection - Respiratory Respiratory exam: Present: CTAB. Absent: rales, respiratory distress, rhonchi, wheezes - Cardiovascular Cardiovascular exam: Present: RRR, +S1, +S2 - GI/Abdominal GI/Abdominal exam: Present: normal bowel sounds, soft. Absent: distended, tenderness Additional comments: Chavez catheter patent draining dark yellow urine. - Extremities Exam Extremities exam: Present: joint swelling (right wrist), tenderness (right wrist ). Absent: pedal edema Additional comments: Right wrist edematous and erythematous again today. Warm to touch. ROM limited due to pain. - Neurological Exam Neurological exam: Present: alert, oriented X3, no focal deficits - Psychiatric Psychiatric exam: Present: normal affect, normal mood - Skin Skin exam: Present: dry, intact, normal color, warm - VTE Documentation of Mechanical Device: Intermittent pneumatic compression device Consult Discharge Plan - Plan [facility]errals: [facility] [Primary Care Provider] -
[2016-08-16] MEDS: 0.9 % Sodium Chloride 1,000 ML IVC SCH (15:58)
--- NOTE | 2016-08-16 17:14 | Internal Med Progress Note ---
Date of Encounter: 08/15/16 Time of Encounter: 17:12 - Assessment and plan (1) Elevated troponin Current Visit: Yes Status: Acute Assessment and plan: Mild troponin, .07 and 0.17, likely demand ischemia in the setting of sepsis and DKA. (2) Cardiomyopathy Current Visit: Yes Status: Acute Assessment and plan: TTE - LVEF 30%, stressed-induced cardiomyopathy versus ischemia as per cardio. No significant valvular disease. Not a good candidate for invasive evaluation in the setting of sepsis and AMS. Mild troponin elevation in the setting of sepsis, IE, and DKA. Re-evaluation of EF once sepsis resolved and consideration of ischemic evaluation , cardio recommending f/u in 1 week. Qualifiers: Cardiomyopathy type: unspecified Qualified Code(s): I42.9 - Cardiomyopathy , unspecified (3) Atrial fibrillation Current Visit: Yes Status: Acute Assessment and plan: stable for now. He is a CHADS VAsc=3 for age, HTN, DM. Ideally he should be on anticoagulation. on Asa 81 mg daily for fall risk. will continue the metoprolol. 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 No need for surgery at this time. ID following. continue IV antibiotics as per ID recommendation. Pt being set up to transfer to [place] for 6 weeks of IV antibiotics. Repeat blood cultures still growing gram positive cocci. new set of blood cx sent today. Appreciate ID recommendation. Qualifiers: Infective endocarditis organism: bacterial Chronicity: acute Qualified Code(s): I33.0 - Acute and subacute infective endocarditis (5) Right wrist pain Current Visit: Yes Status: Acute Assessment and plan: Concern for cellulitis vs. septic arthritis vs. gout. X-ray negative for bony abnormality. CT of the wrist shows no evidence of septic arthritis. Ortho consulted - aspiration would likely be unyielding at this point since the patient has been on IV antibiotics. will continue the naproxyn at his home dose madhu for now, - Time Spent With Patient 25 - 35 minutes - Subjective Interval history: Patient seen at the bedside, reports generalized bodyache, had one temp spike yest Transferred from ICU , being treated for bacteremia with infective endocarditis. Being followed by ID, cardio and orthopedics. - Constitutional Vitals: Temp Pulse Resp BP Pulse Ox 98.4 F 74 20 158/76 95 08/16/16 15:29 08/16/16 15:29 08/16/16 15:29 08/16/16 15:29 08/16/16 15:29 General appearance: Absent: A&O X 3 (confused, drowsy) Exam: HEENT: Atraumatic, Normocephaly, Mucus Membranes Moist Neck: No JVD, Normal carotid pulses Cardiac: Reg Rate and Rhythm, Normal S1 and S2, No Murmur Lungs: Normal Breath Sounds, No Wheeze, Rales, Rhonchi Neuro: Alert and responsive, No focal deficits noted Abdomen: Soft, Non-Tender, bs are present, Skin: No rashes noted on visualized skin Musculoskeletal: No Chest Wall Tenderness Extremities: No Clubbing, No Cyanosis, Normal Pulses Internal Medicine: Result - Labs CBC & Chem 7: 08/16/16 08:32 08/16/16 08:32 Labs: Short CBC 08/16/16 Range/Units 08:32 WBC 8.0 (4.3-11.1) K/mcL Hgb 12.0 L (12.9-16.9) g/dL Hct 36.0 L (37.5-50.1) % Plt Count 249 (140-400) K/mcL Neutrophils # 5.3 (1.6-8.9) K/mcL BMP 08/16/16 08:32 Sodium 132 L Potassium 3.8 Chloride 103 Carbon Dioxide 21 BUN 13 Creatinine 0.67 L Glucose 249 H Calcium 7.9 L - ABG Interpretation ABG results: ABG ABG pH 7.46 pH Units (7.32-7.45) H 08/10/16 10:25 ABG pCO2 29 mmHg (35-45) L 08/10/16 10:25 ABG pO2 62 mmHg (85-104) L 08/10/16 10:25 ABG O2 Saturation 93 % (95-98) L 08/10/16 10:25 PT/INR, D-dimer PT 15.6 Seconds (9.4-12.1) H 08/09/16 18:51 D-Dimer 4758 ng/mLFEU (0-500) H 08/09/16 12:47 - VTE Documentation of Mechanical Device: Intermittent pneumatic compression device Consult Discharge Plan - Plan [facility]errals: [facility] Care Provider[facility] -
[2016-08-16] MEDS: Insulin DETEMIR 100 UNIT/ML X5UNITS SQ SCH (22:25)
[2016-08-17] MEDS: Acetaminophen 325 MG TABLET PO PRN (01:43)
[2016-08-17] MEDS: ceFAZolin 2,000 MG in D5% in Water 100 ML IVPB SCH ×3 (05:02→22:51)
[2016-08-17] MEDS: Gentamicin 80 MG in 0.9 % Sodium Chloride 100 ML IVPB SCH ×3 (06:00→23:25)
--- NOTE | 2016-08-17 08:18 | Infectious Disease Progress No ---
Date of Encounter: 08/15/16 Time of Encounter: 08:16 - Assessment and Plan (1) Sepsis Current Visit: Yes Status: Acute Severe sepsis: The patient had two SIRS criteria plus encephalopathy and thrombocytopenia. The patient has been afebrile for >24 hours. Thrombocytopenia has resolved. Encephalopathy is improved. His WBC remains normal. Likely secondary to bacteremia and endocarditis. Blood culture drawn 08/09/16 is positive 1/1 set for MSSA. Repeat cultures drawn 08/10/16 are positive 2/2 sets for MSSA. Repeat blood cultures x 2 sets drawn 08/11/16 are positive again. Repeat blood cultures drawn 08/13/16 are positive 1/2 sets. Additional set of blood cultures drawn 08/15/16 x 2 sets are positive again 1/2 sets. Repeat blood cultures x 2 sets now. Qualifiers: Sepsis type: methicillin susceptible Staphylococcus aureus Qualified Code(s ): A41.01 - Sepsis due to Methicillin susceptible Staphylococcus aureus (2) Bacteremia Current Visit: Yes Status: Acute Blood culture drawn 08/09/16 is positive 1/1 set for MSSA. Repeat cultures drawn 08/10/16 are positive 2/2 sets. Additional blood cultures drawn 08/11/16 are also positive 2/2 sets. Repeat blood cultures drawn 08/13/16 are positive 1/2 sets again. Additional blood cultures drawn 08/15/16 are positive 1/2 sets. Called Micro lab and checked the VAN on the Vancomycin which was two. This could explain why the patient continued to have persistent bacteremia. He was switched to IV cefazolin 08/14/16. Repeat blood cultures drawn <48 hours after antibiotics were switched. Repeat blood cultures x 2 sets now. The patient has two major and two minor Modified Sorto's Criteria --> definitive IE. TTE negative for valvular dysfunction, DANTE completed 08/14/16 shows vegetation on the mitral valve. Continue cefazolin 2 grams IV Q8H for 6 weeks plus Gentamicin 1mg/kg IV Q8H for 5 days (day 4). Await repeat cultures. Duration of treatment depends on the clinical picture, but will require 6 weeks of IV antibiotic due to IE. Monitor renal function and for drug toxicity. Avoid insertion of central access until blood cultures are negative x 48 hours. (3) Endocarditis Current Visit: Yes Status: Acute Status post DANTE 08/15/16 that showed small echodensity on the mitral valve that is concerning for vegetation. Likely the source of the patient's persistent bacteremia and fevers. The patient has two major and one minor Modified Sorto's Criteria --> definitive IE. Continue antibiotics as above. Duration of treatment depends on the clinical picture, but likely 6 weeks of IV antibiotics. Repeat DANTE post-treatment. Qualifiers: Endocarditis type: infective Infective endocarditis organism: bacterial Chronicity: acute Qualified Code(s): I33.0 - Acute and subacute infective endocarditis (4) Right wrist pain Current Visit: Yes Status: Acute Erythema, edema, and pain noted to the right wrist. Concern for cellulitis vs. septic arthritis vs. gout. X-ray negative for bony abnormality. CT of the wrist shows no evidence of septic arthritis. The patient continues to have pain and swelling and erythema. Consider repeating CT or getting MRI to further evaluate. Consider checking uric acid level. Ortho consulted --> aspiration would likely be unyielding at this point since the patient has been on IV antibiotics. Further management per the ortho and primary teams. (5) Metabolic encephalopathy Current Visit: Yes Status: Resolved Improved. Likely secondary to sepsis. CT and MRI of the brain are negative. LP negative. Continue to monitor closely. (6) Diverticulitis Current Visit: Yes Status: Inactive CT of the abdomen and pelvis shows findings consistent with diverticulosis with suspected diverticulitis. Abdominal exam benign. Further management per the primary team. Qualifiers: Diverticulitis site: unspecified part of intestinal tract Diverticulitis bleeding: without bleeding Diverticulitis complication: without perforation or abscess Qualified Code(s): K57.92 - Diverticulitis of intestine, part unspecified, without perforation or abscess without bleeding (7) Cardiomyopathy Current Visit: Yes Status: Acute TTE showed EF of 30%. Etiology unclear: ischemic vs. stress-induced. Cardiology consulted and following. Qualifiers: Cardiomyopathy type: unspecified Qualified Code(s): I42.9 - Cardiomyopathy , unspecified (8) Elevated troponin Current Visit: Yes Status: Acute Cardiology consulted and following. (9) Hypoxemia Current Visit: Yes Status: Resolved Likely secondary to fluid overload. Improved. Management per the primary team. (10) Thrombocytopenia Current Visit: Yes Status: Resolved Likely secondary to sepsis. Resolved. No evidence of bleeding noted on exam. Continue to trend. (11) Hyponatremia Current Visit: Yes Status: Resolved (12) Urinary incontinence Current Visit: Yes Status: Chronic Qualifiers: Urinary Incontinence type: unspecified incontinence Qualified Code(s): R32 - Unspecified urinary incontinence (13) Hypertension Current Visit: Yes Status: Chronic Qualifiers: Hypertension type: essential hypertension Qualified Code(s): I10 - Essential (primary) hypertension (14) Hypokalemia Current Visit: Yes Status: Resolved - Subjective Interval history: Patient seen and examined. No acute events noted overnight. Patient lying in bed , awake. Complains of neck pain and left leg pain - chronic. Also complains of headache this morning. Also reports right wrist pain. Status post DANTE 08/14/16 that revealed vegetation on the mitral valve with mitral regurgitation. Denies chest pain or shortness of breath or cough. Denies nausea, vomiting, or constipation. Reports soft BM yesterday. Denies abdominal pain. Denies oral thrush or new skin lesions. Infect Dis PN-Objective Data - Labs CBC & Chem 7: 08/16/16 08:32 08/16/16 08:32 Labs: Laboratory Results - last 24 hr 08/16/16 08/16/16 08/16/16 07:29 08:32 08:32 WBC 8.0 RBC 4.07 L Hgb 12.0 L Hct 36.0 L MCV 88.5 MCH 29.5 MCHC 33.3 RDW 13.8 Plt Count 249 MPV 9.9 Immature Gran % 2.7 Seg Neutrophils % 65.8 Lymphocytes % 19.7 Monocytes % 10.7 Eosinophils % 0.7 Basophils % 0.4 Neutrophils # 5.3 Lymphocytes # 1.6 Monocytes # 0.9 Eosinophils # 0.1 Basophils # 0.0 Toxic Granulation Present A Platelet Estimate Normal Immature Plt Fraction 2.9 Sodium 132 L Potassium 3.8 Chloride 103 Carbon Dioxide 21 BUN 13 Creatinine 0.67 L Est GFR ( Amer) > 60 Est GFR (Non-Af Amer) > 60 BUN/Creatinine Ratio 19 Glucose 249 H POC Glucose 274 H Calculated Osmolality 282 Calcium 7.9 L Gentamicin Trough 08/16/16 08/16/16 08/16/16 11:25 14:49 16:21 WBC RBC Hgb Hct MCV MCH MCHC RDW Plt Count MPV Immature Gran % Seg Neutrophils % Lymphocytes % Monocytes % Eosinophils % Basophils % Neutrophils # Lymphocytes # Monocytes # Eosinophils # Basophils # Toxic Granulation Platelet Estimate Immature Plt Fraction Sodium Potassium Chloride Carbon Dioxide BUN Creatinine Est GFR ( Amer) Est GFR (Non-Af Amer) BUN/Creatinine Ratio Glucose POC Glucose 243 H 185 H Calculated Osmolality Calcium Gentamicin Trough 0.74 08/16/16 20:48 WBC RBC Hgb Hct MCV MCH MCHC RDW Plt Count MPV Immature Gran % Seg Neutrophils % Lymphocytes % Monocytes % Eosinophils % Basophils % Neutrophils # Lymphocytes # Monocytes # Eosinophils # Basophils # Toxic Granulation Platelet Estimate Immature Plt Fraction Sodium Potassium Chloride Carbon Dioxide BUN Creatinine Est GFR ( Amer) Est GFR (Non-Af Amer) BUN/Creatinine Ratio Glucose POC Glucose 241 H Calculated Osmolality Calcium Gentamicin Trough Cultures: Cultures 08/15/16 06:55 Blood Culture - Preliminary Peripheral Venipuncture No growth. 08/15/16 07:00 Blood Culture - Preliminary Peripheral Venipuncture Gram Positive Cocci 08/13/16 10:18 Blood Culture - Final Peripheral Venipuncture No growth. 08/11/16 20:50 Blood Culture - Final Peripheral Venipuncture Staphylococcus aureus 08/13/16 10:11 Blood Culture - Final Peripheral Venipuncture Staphylococcus aureus 08/11/16 20:40 Blood Culture - Final Peripheral Venipuncture Staphylococcus aureus 08/11/16 11:54 Gram Stain - Final Cerebral Spinal Fluid CSF Culture - Final 08/09/16 22:26 Blood Culture - Final Peripheral Venipuncture Staphylococcus aureus 08/10/16 00:55 Blood Culture - Final Peripheral Venipuncture Staphylococcus aureus 08/10/16 01:00 Blood Culture - Final Peripheral Venipuncture Staphylococcus aureus 08/11/16 11:54 Cryptococcal Antigen - Final Cerebral Spinal Fluid Serology 08/13/16 08/11/16 08/11/16 Range/Units 01:01 20:40 13:05 Fluid Source Fluid Volume Fluid Appearance Fluid RBC Fld Tot Nucleated Cell Fluid Seg Neutrophil % Fld Band Neutrophil % Fluid Lymphocytes % Fluid Monocytes % Fluid Eosinophils % Fluid Basophils % Fluid Other Cells % CSF Volume mL CSF Appearance (Clear) CSF Color (Colorless) CSF RBC (0-1) RBC/mcL CSF Tot Nucleated Cells (0-5) TNC/mcL CSF Seg Neutrophils CSF Band Neutrophils % CSF Lymphocytes % CSF Monocytes % CSF Eosinophils % CSF Basophils % CSF Other Cells % CSF Glucose CSF Xanth Comm (Not Observe) CSF Total Protein Stl C. cayetanensis PCR Not detected (Not detect) Stool Rotavirus A PCR Not detected (Not detect) Stl Adenov F 40/41 PCR Not detected (Not detect) Stool Astrovirus (PCR) Not detected (Not detect) Stool Campylobacter PCR Not detected (Not detect) Stl C. diff Tox A/B PCR Not detected (Not detect) Stool Cryptosporidium PCR Not detected (Not detect) Stl Sh Tox Pr E STEC PCR Not detected (Not detect) Stool E coli O157 PCR Not detected (Not detect) Stl Enterotoxigenic E PCR Not detected (Not detect) Stool EPEC (PCR) Not detected (Not detect) Stool EAEC (PCR) DETECTED A (Not detect) Stl E. histolytica PCR Not detected (Not detect) Stool Giardia Lamblia PCR Not detected (Not detect) Stool Salmonella PCR Not detected (Not detect) Stool Sapovirus (PCR) Not detected (Not detect) Stl P. shigelloides PCR Not detected (Not detect) Stl Shigella/EIEC PCR Not detected (Not detect) St Y.enterocolitica PCR Not detected (Not detect) Stool Vibrio (PCR) Not detected (Not detect) Stl Vibrio cholerae PCR Not detected (Not detect) Stl Norovirus GI/GII PCR Not detected (Not detect) Stl GI Panel (PCR) Com See below A. baumannii (PCR) Not Detected (Not Detect) Chlamy pneumoniae PCR (Not Detect) Adenovirus (PCR) (Not Detect) B. pertussis DNA (PCR) (Not Detect) Gill albicans (PCR) Not Detected (Not Detect) C. glabrata (PCR) Not Detected (Not Detect) C. krusei (PCR) Not Detected (Not Detect) C. parapsilosis (PCR) Not Detected (Not Detect) C. tropicalis (PCR) Not Detected (Not Detect) Coronavirus OC43 (PCR) (Not Detect) Coronavirus HKU1 (PCR) (Not Detect) Coronavirus 229E (PCR) (Not Detect) Coronavirus NL63 (PCR) (Not Detect) CMV IgG Ab 7.70 U/mL CMV IgM Ab <8.0 (<=29.9) AU/mL Enterobacteriac sp PCR Not Detected (Not Detect) E. cloacae complex PCR Not Detected (Not Detect) Enterococcus sp PCR Not Detected (Not Detect) E. coli (PCR) Not Detected (Not Detect) H. influenzae (PCR) Not Detected (Not Detect) HIV Ag/Ab Combo Qual (Nonreactive) Human Metapneumovirus (Not Detect) Influenza A (H1) PCR (Not Detect) Influ A (H1N1/09) PCR (Not Detect) Influenza A (H3) PCR (Not Detect) Influenza A Untype (PCR) (Not Detect) Influenza Type B (PCR) (Not Detect) Klebsiella oxytoca PCR Not Detected (Not Detect) Klebsiella pneumoniae Not Detected (Not Detect) List. monocytogenes PCR Not Detected (Not Detect) M.pneumoniae DNA (PCR) (Not Detect) N. meningitidis (PCR) Not Detected (Not Detect) Parainfluenza 1 (PCR) (Not Detect) Parainfluenza 2 (PCR) (Not Detect) Parainfluenza 3 (PCR) (Not Detect) Parainfluenza 4 (PCR) (Not Detect) Proteus species (PCR) Not Detected (Not Detect) RSV (PCR) (Not Detect) Entero/Rhino (PCR) (Not Detect) Serratia marcescens PCR Not Detected (Not Detect) Staphylococcus sp PCR DETECTED A (Not Detect) Staph aureus (PCR) DETECTED A (Not Detect) mecA-Methicil Res Gene Not Detected (Not Detect) Streptococcus sp PCR Not Detected (Not Detect) Group A Strep DNA Not Detected (Not Detect) Group B Strep (PCR) Not Detected (Not Detect) Strep pneumoniae (PCR) Not Detected (Not Detect) P. aeruginosa (PCR) Not Detected (Not Detect) Batsheva/B-Vanco Res Genes N/A (Not Detect) KPC (blaKPC) Detect PCR N/A (Not Detect) 08/11/16 08/11/16 08/09/16 Range/Units 11:54 11:54 22:26 Fluid Source Test Not Performed Fluid Volume Test Not Performed Fluid Appearance Test Not Performed Fluid RBC TNP Fld Tot Nucleated Cell TNP Fluid Seg Neutrophil % Test Not Performed Fld Band Neutrophil % Test Not Performed Fluid Lymphocytes % Test Not Performed Fluid Monocytes % Test Not Performed Fluid Eosinophils % Test Not Performed Fluid Basophils % Test Not Performed Fluid Other Cells % Test Not Performed CSF Volume 8.0 mL CSF Appearance Clear (Clear) CSF Color Colorless (Colorless) CSF RBC < 0 L (0-1) RBC/mcL CSF Tot Nucleated Cells 3 (0-5) TNC/mcL CSF Seg Neutrophils TNP CSF Band Neutrophils % TNP CSF Lymphocytes % TNP CSF Monocytes % TNP CSF Eosinophils % TNP CSF Basophils % TNP CSF Other Cells % TNP CSF Glucose TNP CSF Xanth Comm Not Observed (Not Observe) CSF Total Protein TNP Stl C. cayetanensis PCR (Not detect) Stool Rotavirus A PCR (Not detect) Stl Adenov F 40/41 PCR (Not detect) Stool Astrovirus (PCR) (Not detect) Stool Campylobacter PCR (Not detect) Stl C. diff Tox A/B PCR (Not detect) Stool Cryptosporidium PCR (Not detect) Stl Sh Tox Pr E STEC PCR (Not detect) Stool E coli O157 PCR (Not detect) Stl Enterotoxigenic E PCR (Not detect) Stool EPEC (PCR) (Not detect) Stool EAEC (PCR) (Not detect) Stl E. histolytica PCR (Not detect) Stool Giardia Lamblia PCR (Not detect) Stool Salmonella PCR (Not detect) Stool Sapovirus (PCR) (Not detect) Stl P. shigelloides PCR (Not detect) Stl Shigella/EIEC PCR (Not detect) St Y.enterocolitica PCR (Not detect) Stool Vibrio (PCR) (Not detect) Stl Vibrio cholerae PCR (Not detect) Stl Norovirus GI/GII PCR (Not detect) Stl GI Panel (PCR) Com A. baumannii (PCR) Not Detected (Not Detect) Chlamy pneumoniae PCR (Not Detect) Adenovirus (PCR) (Not Detect) B. pertussis DNA (PCR) (Not Detect) Gill albicans (PCR) Not Detected (Not Detect) C. glabrata (PCR) Not Detected (Not Detect) C. krusei (PCR) Not Detected (Not Detect) C. parapsilosis (PCR) Not Detected (Not Detect) C. tropicalis (PCR) Not Detected (Not Detect) Coronavirus OC43 (PCR) (Not Detect) Coronavirus HKU1 (PCR) (Not Detect) Coronavirus 229E (PCR) (Not Detect) Coronavirus NL63 (PCR) (Not Detect) CMV IgG Ab U/mL CMV IgM Ab (<=29.9) AU/mL Enterobacteriac sp PCR Not Detected (Not Detect) E. cloacae complex PCR Not Detected (Not Detect) Enterococcus sp PCR Not Detected (Not Detect) E. coli (PCR) Not Detected (Not Detect) H. influenzae (PCR) Not Detected (Not Detect) HIV Ag/Ab Combo Qual (Nonreactive) Human Metapneumovirus (Not Detect) Influenza A (H1) PCR (Not Detect) Influ A (H1N1/09) PCR (Not Detect) Influenza A (H3) PCR (Not Detect) Influenza A Untype (PCR) (Not Detect) Influenza Type B (PCR) (Not Detect) Klebsiella oxytoca PCR Not Detected (Not Detect) Klebsiella pneumoniae Not Detected (Not Detect) List. monocytogenes PCR Not Detected (Not Detect) M.pneumoniae DNA (PCR) (Not Detect) N. meningitidis (PCR) Not Detected (Not Detect) Parainfluenza 1 (PCR) (Not Detect) Parainfluenza 2 (PCR) (Not Detect) Parainfluenza 3 (PCR) (Not Detect) Parainfluenza 4 (PCR) (Not Detect) Proteus species (PCR) Not Detected (Not Detect) RSV (PCR) (Not Detect) Entero/Rhino (PCR) (Not Detect) Serratia marcescens PCR Not Detected (Not Detect) Staphylococcus sp PCR DETECTED A (Not Detect) Staph aureus (PCR) DETECTED A (Not Detect) mecA-Methicil Res Gene Not Detected (Not Detect) Streptococcus sp PCR Not Detected (Not Detect) Group A Strep DNA Not Detected (Not Detect) Group B Strep (PCR) Not Detected (Not Detect) Strep pneumoniae (PCR) Not Detected (Not Detect) P. aeruginosa (PCR) Not Detected (Not Detect) Batsheva/B-Vanco Res Genes N/A (Not Detect) KPC (blaKPC) Detect PCR N/A (Not Detect) 08/09/16 08/09/16 Range/Units 19:53 18:57 Fluid Source Fluid Volume Fluid Appearance Fluid RBC Fld Tot Nucleated Cell Fluid Seg Neutrophil % Fld Band Neutrophil % Fluid Lymphocytes % Fluid Monocytes % Fluid Eosinophils % Fluid Basophils % Fluid Other Cells % CSF Volume mL CSF Appearance (Clear) CSF Color (Colorless) CSF RBC (0-1) RBC/mcL CSF Tot Nucleated Cells (0-5) TNC/mcL CSF Seg Neutrophils CSF Band Neutrophils % CSF Lymphocytes % CSF Monocytes % CSF Eosinophils % CSF Basophils % CSF Other Cells % CSF Glucose CSF Xanth Comm (Not Observe) CSF Total Protein Stl C. cayetanensis PCR (Not detect) Stool Rotavirus A PCR (Not detect) Stl Adenov F 40/41 PCR (Not detect) Stool Astrovirus (PCR) (Not detect) Stool Campylobacter PCR (Not detect) Stl C. diff Tox A/B PCR (Not detect) Stool Cryptosporidium PCR (Not detect) Stl Sh Tox Pr E STEC PCR (Not detect) Stool E coli O157 PCR (Not detect) Stl Enterotoxigenic E PCR (Not detect) Stool EPEC (PCR) (Not detect) Stool EAEC (PCR) (Not detect) Stl E. histolytica PCR (Not detect) Stool Giardia Lamblia PCR (Not detect) Stool Salmonella PCR (Not detect) Stool Sapovirus (PCR) (Not detect) Stl P. shigelloides PCR (Not detect) Stl Shigella/EIEC PCR (Not detect) St Y.enterocolitica PCR (Not detect) Stool Vibrio (PCR) (Not detect) Stl Vibrio cholerae PCR (Not detect) Stl Norovirus GI/GII PCR (Not detect) Stl GI Panel (PCR) Com A. baumannii (PCR) (Not Detect) Chlamy pneumoniae PCR Not Detected (Not Detect) Adenovirus (PCR) Not Detected (Not Detect) B. pertussis DNA (PCR) Not Detected (Not Detect) Gill albicans (PCR) (Not Detect) C. glabrata (PCR) (Not Detect) C. krusei (PCR) (Not Detect) C. parapsilosis (PCR) (Not Detect) C. tropicalis (PCR) (Not Detect) Coronavirus OC43 (PCR) Not Detected (Not Detect) Coronavirus HKU1 (PCR) Not Detected (Not Detect) Coronavirus 229E (PCR) Not Detected (Not Detect) Coronavirus NL63 (PCR) Not Detected (Not Detect) CMV IgG Ab U/mL CMV IgM Ab (<=29.9) AU/mL Enterobacteriac sp PCR (Not Detect) E. cloacae complex PCR (Not Detect) Enterococcus sp PCR (Not Detect) E. coli (PCR) (Not Detect) H. influenzae (PCR) (Not Detect) HIV Ag/Ab Combo Qual Nonreactive (Nonreactive) Human Metapneumovirus Not Detected (Not Detect) Influenza A (H1) PCR Not Detected (Not Detect) Influ A (H1N1/09) PCR Not Detected (Not Detect) Influenza A (H3) PCR Not Detected (Not Detect) Influenza A Untype (PCR) Not Detected (Not Detect) Influenza Type B (PCR) Not Detected (Not Detect) Klebsiella oxytoca PCR (Not Detect) Klebsiella pneumoniae (Not Detect) List. monocytogenes PCR (Not Detect) M.pneumoniae DNA (PCR) Not Detected (Not Detect) N. meningitidis (PCR) (Not Detect) Parainfluenza 1 (PCR) Not Detected (Not Detect) Parainfluenza 2 (PCR) Not Detected (Not Detect) Parainfluenza 3 (PCR) Not Detected (Not Detect) Parainfluenza 4 (PCR) Not Detected (Not Detect) Proteus species (PCR) (Not Detect) RSV (PCR) Not Detected (Not Detect) Entero/Rhino (PCR) Not Detected (Not Detect) Serratia marcescens PCR (Not Detect) Staphylococcus sp PCR (Not Detect) Staph aureus (PCR) (Not Detect) mecA-Methicil Res Gene (Not Detect) Streptococcus sp PCR (Not Detect) Group A Strep DNA (Not Detect) Group B Strep (PCR) (Not Detect) Strep pneumoniae (PCR) (Not Detect) P. aeruginosa (PCR) (Not Detect) Batsheva/B-Vanco Res Genes (Not Detect) KPC (blaKPC) Detect PCR (Not Detect) Exam - Constitutional Vitals: Temp Pulse Resp BP Pulse Ox 98.4 F 66 18 188/89 93 L 08/17/16 07:31 08/17/16 07:31 08/17/16 07:31 08/17/16 07:31 08/17/16 07:31 General appearance: average body habitus, cooperative, no acute distress - Head Head exam: Present: atraumatic, normal inspection, normocephalic - Eye Eye exam: Present: EOMI, normal appearance, PERRL Pupils: Present: normal accommodation Additional comments: No subconjunctival hemorrhage noted. - ENT ENT exam: Present: mucous membranes moist - Neck Neck exam: Present: normal inspection - Respiratory Respiratory exam: Present: CTAB. Absent: rales, respiratory distress, rhonchi, wheezes - Cardiovascular Cardiovascular exam: Present: RRR, +S1, +S2 - GI/Abdominal GI/Abdominal exam: Present: normal bowel sounds, soft. Absent: distended, tenderness Additional comments: Chavez catheter noted to be draining dark yellow clear urine. - Extremities Exam Extremities exam: Present: joint swelling (right wrist), tenderness (right wrist ). Absent: pedal edema - Neurological Exam Neurological exam: Present: alert, oriented X3, no focal deficits - Psychiatric Psychiatric exam: Present: normal affect, normal mood - Skin Skin exam: Present: dry, intact, normal color, warm - VTE Documentation of Mechanical Device: Intermittent pneumatic compression device Consult Discharge Plan - Plan [facility]errals: [facility]Primary Care Provider[facility] -
[2016-08-17 09:13] LABS: Basophils % 0.2 %; Eosinophils # 0.1 K/mcL (0.0-0.6); Eosinophils % 1.3 %; Hematocrit 35.8 % (37.5-50.1); Hemoglobin 12.4 g/dL (12.9-16.9); Immature Granulocytes % 2.6 % (0-4); Immature Platelets 1.8 % (1.1-6.1); Lymphocytes # 1.5 K/mcL (0.6-4.6); Lymphocytes % 16.4 %; Mean Corpuscular HGB Conc 34.6 g/dL (31.6-35.5); Mean Corpuscular Hemoglobin 30.6 pg (28.0-33.3); Mean Corpuscular Volume 88.4 fL (83.0-100.0); Mean Platelet Volume 9.6 fL (9.4-12.4); Monocytes # 0.7 K/mcL (0.0-1.3); Monocytes % 8.2 %; Neutrophils # 6.5 K/mcL (1.6-8.9); Platelet Count 291 K/mcL (140-400); Red Blood Count 4.05 M/mcL (4.19-5.50); Red Cell Distribution Width 13.9 % (11.5-14.5); Segmented Neutrophils % 71.3 %
[2016-08-17] MEDS: Aspirin 81 MG TAB.CHEW PO SCH (09:19)
[2016-08-17] MEDS: amLODIPine 5 MG TABLET PO SCH ×2 (09:19→09:21)
[2016-08-17] MEDS: Cholecalciferol (D-3) 1,000 UNIT TABLET PO SCH (09:19)
[2016-08-17] MEDS: Methocarbamol 500 MG TABLET PO SCH ×3 (09:20→22:50)
[2016-08-17] MEDS: Insulin LISPRO 300 UNITS/3 ML VIAL SQ SCH ×7 (09:20→22:52)
[2016-08-17] MEDS: Metoprolol XL (24 HR) Succ 50 MG TAB.ER.24H PO SCH ×2 (09:20→22:49)
[2016-08-17 09:57] LABS: BUN/Creatinine Ratio 15 (6-26); Blood Urea Nitrogen 11 mg/dL (8-26); Carbon Dioxide 22 mEq/L (19-29); Chloride 103 mEq/L (98-109); Glucose 219 mg/dL (70-99); Osmolality,Calculated 282 (280-300); Potassium 3.3 mEq/L (3.5-4.5); Sodium 133 mEq/L (136-145); eGFR For African Americans > 60 (> 60); eGFR For Non-African Americans > 60 (> 60)
--- NOTE | 2016-08-17 16:27 | Internal Med Progress Note ---
Date of Encounter: 08/17/16 Time of Encounter: 16:25 - Assessment and plan (1) Cardiomyopathy Current Visit: Yes Status: Acute Assessment and plan: TTE - LVEF 30%, stressed-induced cardiomyopathy versus ischemia as per cardio. No significant valvular disease. Not a good candidate for invasive evaluation in the setting of sepsis and AMS. Mild troponin elevation in the setting of sepsis, IE, and DKA. Re-evaluation of EF once sepsis resolved and consideration of ischemic evaluation , cardio recommending f/u in 1 week. Qualifiers: Cardiomyopathy type: unspecified Qualified Code(s): I42.9 - Cardiomyopathy , unspecified (2) Atrial fibrillation Current Visit: Yes Status: Acute Assessment and plan: stable for now. He is a CHADS VAsc=3 for age, HTN, DM. Ideally he should be on anticoagulation. on Asa 81 mg daily for fall risk. will continue the metoprolol. Qualifiers: Atrial fibrillation type: paroxysmal Qualified Code(s): I48.0 - Paroxysmal atrial fibrillation (3) Infective endocarditis Current Visit: Yes Status: Acute Assessment and plan: Vegetation seen on aortic valve. 2/2 bacteremia, source possible the right wrist. No need for surgery at this time. ID following. continue IV antibiotics as per ID recommendation. Pt being set up to transfer to [place] for 6 weeks of IV antibiotics. Repeat blood cultures still growing gram positive cocci. new set of blood cx sent on 08/16. await results, fever free 24 hrs. Appreciate ID recommendation. Qualifiers: Infective endocarditis organism: bacterial Chronicity: acute Qualified Code(s): I33.0 - Acute and subacute infective endocarditis (4) Right wrist pain Current Visit: Yes Status: Acute Assessment and plan: Concern for cellulitis vs. septic arthritis vs. gout. X-ray negative for bony abnormality. CT of the wrist shows no evidence of septic arthritis. Ortho consulted - aspiration would likely be unyielding at this point since the patient has been on IV antibiotics. will continue the naproxyn at his home dose madhu for now, - Time Spent With Patient 25 - 35 minutes - Subjective Interval history: Patient seen at the bedside, reports generalized bodyache, no temp spike yesterday. Transferred from ICU , being treated for bacteremia with infective endocarditis. Being followed by ID. anticipated transfer to [facility] today, however hospitalist at [facility] requesting repeat ECHO and CT lumbar spine with contrast to r/o abscess before dc. - Constitutional Vitals: Temp Pulse Resp BP Pulse Ox 98.2 F 64 16 180/79 94 08/17/16 15:51 08/17/16 15:51 08/17/16 15:51 08/17/16 15:51 08/17/16 15:51 General appearance: Present: A&O X 3, no acute distress Exam: HEENT: Atraumatic, Normocephaly, Mucus Membranes Moist Neck: No JVD, Normal carotid pulses Cardiac: Reg Rate and Rhythm, Normal S1 and S2, No Murmur Lungs: Normal Breath Sounds, No Wheeze, Rales, Rhonchi Neuro: Alert and responsive, No focal deficits noted Abdomen: Soft, Non-Tender, bs are present, Skin: No rashes noted on visualized skin Musculoskeletal: No Chest Wall Tenderness Extremities: No Clubbing, No Cyanosis, Normal Pulses Internal Medicine: Result - Labs CBC & Chem 7: 08/17/16 08:46 08/17/16 08:46 Labs: Short CBC 08/17/16 Range/Units 08:46 WBC 9.1 (4.3-11.1) K/mcL Hgb 12.4 L (12.9-16.9) g/dL Hct 35.8 L (37.5-50.1) % Plt Count 291 (140-400) K/mcL Neutrophils # 6.5 (1.6-8.9) K/mcL BMP 08/17/16 08:46 Sodium 133 L Potassium 3.3 L Chloride 103 Carbon Dioxide 22 BUN 11 Creatinine 0.71 L Glucose 219 H Calcium 8.0 L - ABG Interpretation ABG results: ABG ABG pH 7.46 pH Units (7.32-7.45) H 08/10/16 10:25 ABG pCO2 29 mmHg (35-45) L 08/10/16 10:25 ABG pO2 62 mmHg (85-104) L 08/10/16 10:25 ABG O2 Saturation 93 % (95-98) L 08/10/16 10:25 PT/INR, D-dimer PT 15.6 Seconds (9.4-12.1) H 08/09/16 18:51 D-Dimer 4758 ng/mLFEU (0-500) H 08/09/16 12:47 - Impressions Impressions Lumbar Spine CT 08/17/16 14:30 IMPRESSION: 1. No acute lumbar spine abnormality. No gross evidence of epidural abscess, however the test of choice remains contrast-enhanced MRI of the lumbar spine to adequately assess for epidural abscess. 2. Multilevel degenerative disease throughout the lumbar spine. D/ / 08/17/2016 15:47:57 Sarah Nowak MD / [email or web address] Interpreting Provider: Sarah Nowak MD - VTE Documentation of Mechanical Device: Intermittent pneumatic compression device Consult Discharge Plan - Plan [facility]errals: [facility] [Primary Care Provider] -
[2016-08-17] MEDS: Insulin DETEMIR 100 UNIT/ML X5UNITS SQ SCH (22:50)
[2016-08-18] MEDS: Gentamicin 80 MG in 0.9 % Sodium Chloride 100 ML IVPB SCH (06:58)
[2016-08-18] MEDS ORDERED: amLODIPine 5 MG TABLET PO SCH (07:53)
[2016-08-18] MEDS: Methocarbamol 500 MG TABLET PO SCH (08:20)
[2016-08-18] MEDS: Metoprolol XL (24 HR) Succ 50 MG TAB.ER.24H PO SCH (08:21)
[2016-08-18] MEDS: Cholecalciferol (D-3) 1,000 UNIT TABLET PO SCH (08:21)
[2016-08-18] MEDS: Aspirin 81 MG TAB.CHEW PO SCH (08:21)
[2016-08-18] MEDS: Insulin LISPRO 300 UNITS/3 ML VIAL SQ SCH ×5 (08:23→11:47)
[2016-08-18] MEDS: ceFAZolin 2,000 MG in D5% in Water 100 ML IVPB SCH (08:25)
[2016-08-18] MEDS: Acetaminophen 325 MG TABLET PO PRN (10:36)
--- NOTE | 2016-08-18 10:39 | ECHO - Doppler Report ---
Echocardiogram Name: Sergo Hemphill Date of Study: 08/17/2016 Date: 1945 Ht: 71.0 in Medical Record#: [id number] Age: 70 Wt: 196.0 lb Gender: Male BSA: 2.09 Order #: [id number] Location: [facility] Room #: 2A43 Reading Physician: Sandi Gaspar DO Registered Nursing Professor: KINA CardozoT Ordering Physician: Shannon Nelson MD Primary Physician: [facility] Indications: rule our abscess Impressions: LVEF 60%. Normal left ventricular size and systolic function. There is evidence of mild diastolic dysfunction of the left ventricle. Normal right ventricular size and function. No significant valvular dysfunction. No pulmonary hypertension. Infectious findings are not visualized on this study. Normalization of LVEF when compared to echo, 08/09/2016. Left Ventricular Wall Motion: Rest Echo Findings All wall segments showed normal motion. Findings: Study Quality * Technically adequate exam. ECG Findings * Normal sinus rhythm. Left Ventricle * Normal LV chamber size, wall thickness and function. * Mild left ventricular diastolic dysfunction. * LVEF 60%. Left Atrium * Normal left atrial size. Mitral Valve * Normal mitral valve structure. * No mitral stenosis. * No mitral regurgitation. Aortic Valve * No aortic regurgitation. * Trileaflet aortic valve. * Normal aortic valve structure. * No aortic stenosis. Tricuspid Valve * Tricuspid valve not well visualized. * No tricuspid regurgitation. * Estimated RA pressure is 3 mmHg. Pulmonic Valve * Pulmonic valve is not well visualized. * No pulmonic stenosis. * Trace pulmonic regurgitation. Pulmonary Artery * Pulmonary artery not well visualized. Pericardium * There is no pericardial effusion present. Right Atrium * Normal right atrial size. Right Ventricle * Normal right ventricular structure and function. Interatrial Septum * No evidence of PFO by color Doppler. IVC * Normal IVC dimensions and inspiratory collapse. Aorta * Normally sized aortic root. History Hypertension Diabetes Hypercholesteremia Myocardial Infarction 08-09-2016 a Previous Echo was performed. Measurements: BP: 180/ 79 2D Normal Values IVSd: 1.10 cm 0.6 - 1.0 cm LVIDd: 5.10 cm 3.7 - 5.6 cm LVPWd: 1.10 cm 0.6 - 1.1 cm LVIDs: 3.60 cm 1.5 - 3.6 cm AO: 2.80 cm < 4.0 cm LA: 3.90 cm 2.0 - 4.0cm %FS: 29.40 cm >25 % LA volume: 50 Mitral Valve Peak E:.84 m/sec Peak A:1.00 m/sec E/A Ratio:0.8 Peak E' Lat Saad:7.99 cm/s Peak E' Med Saad:7.02 cm/s E/E' Lat Ratio:10.5 E/E' Med Ratio:12 Tricuspid Valve TV Regurg Peak Grad: 10.00mmHg TV Regurg Peak Saad: 1.57m/sec Updated by Sandi Gaspar on 08/18/2016 10:32:14 AM electronically signed on 08/18/2016 10:34:14 AM with status of Final Wall Motion Strong: 1=Normal, 2=Hypokinesis, 3=Akinesis, 4=Dyskinesis, 5=Aneurysmal, 6=Hyperkinetic, X=Not Visualized (Blank)=Missing
[2016-08-18 11:22] VITALS: BP 158/83
[2016-08-18] MEDS ORDERED: Aminoglycoside Consult 1 EACH MC ONE (13:59)
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
== END 2016-08-18 14:00 | DRG 871 ==
LOC: EMEROO 22:36 → 3BNU 22:36 → SUATTDRO 08-09 12:09 → 2NENU 08-09 16:44 → 2NNU 08-09 18:40 → ICNU 08-11 18:43 → 2ANU 08-14 21:05
PROVIDERS: ADMIT Internal Medicine; ATTEND Internal Medicine Endocrinology, Diabetes & Metabolism

== ENCOUNTER 2020-01-05 02:58 | Inpatient (IN) ==
[2020-01-05] MEDS ORDERED: Naloxone 0.4 MG/ML INJ IVP PRN (05:39)
[2020-01-05] MEDS ORDERED: Dextrose Gel 15 GM/37.5 ML TUBE PO PRN ×2 (05:47)
[2020-01-05] MEDS ORDERED: D5% in Water 1,000 ML IVC PRN (05:47)
[2020-01-05] MEDS ORDERED: *HR* Dextrose 50 % in Water (Vial) 50 ML VIAL IVP PRN ×3 (05:47→12:50)
[2020-01-05] MEDS ORDERED: *HR* Promethazine 25 MG/ML VIAL IVP PRN (06:00)
[2020-01-05] MEDS ORDERED: Acetaminophen 325 MG TABLET PO PRN ×2 (06:00→21:54)
[2020-01-05] MEDS ORDERED: Insulin LISPRO 300 UNITS/3 ML VIAL SQ SCH ×6 (06:00→21:00)
[2020-01-05 06:14] LABS: Adenovirus Not Detected (Not Detect); Coronavirus 229E Not Detected (Not Detect); Coronavirus HKU1 Not Detected (Not Detect); Coronavirus NL63 Not Detected (Not Detect); Coronavirus OC43 Not Detected (Not Detect)
[2020-01-05 06:15] LABS: Bordetella Pertussis Not Detected (Not Detect); Chlamydophila pneumoniae Not Detected (Not Detect); Human Metapneumovirus Not Detected (Not Detect); Human Rhinovirus/Enterovirus Not Detected (Not Detect); Influenza A Subtype 2009 H1 Not Detected (Not Detect); Influenza B Not Detected (Not Detect); Mycoplasma pneumoniae Not Detected (Not Detect); Parainfluenza Virus 1 Not Detected (Not Detect); Parainfluenza Virus 2 Not Detected (Not Detect); Parainfluenza Virus 3 Not Detected (Not Detect); Parainfluenza Virus 4 Not Detected (Not Detect); Respiratory Syncytial Virus Not Detected (Not Detect)
[2020-01-05] MEDS: 0.9 % Sodium Chloride 1,000 ML IVC SCH ×3 (07:28→16:39)
[2020-01-05 07:56] LABS: Basophils % 0.2 %; Eosinophils % 0.6 %; Hematocrit 34.4 % (37.5-50.1); Hemoglobin 11.2 g/dL (12.9-16.9); Immature Granulocytes % 0.4 % (0-4); Lymphocytes # 1.6 K/mcL (0.6-4.6); Lymphocytes % 30.7 %; Mean Corpuscular HGB Conc 32.6 g/dL (31.6-35.5); Mean Corpuscular Hemoglobin 30.9 pg (28.0-33.3); Mean Platelet Volume 10.2 fL (9.4-12.4); Monocytes # 0.5 K/mcL (0.0-1.3); Monocytes % 8.8 %; Neutrophils # 3.2 K/mcL (1.6-8.9); Platelet Count 146 K/mcL (140-400); Prothrombin Time 10.8 Seconds (9.4-12.1); Red Blood Count 3.62 M/mcL (4.19-5.50); Red Cell Distribution Width 13.8 % (11.5-14.5); Segmented Neutrophils % 59.3 %; White Blood Count 5.3 K/mcL (4.3-11.1)
[2020-01-05 08:49] LABS: Albumin 3.2 g/dL (3.5-5.7); Albumin/Globulin Ratio 1.3 (1.1-2.2); Bilirubin,Total 0.3 mg/dL (0.3-1.0); Calcium 8.1 mg/dL (8.6-10.3); Globulin 2.5 g/dL (2.4-3.5); Magnesium 1.7 mg/dL (1.6-2.6); Phosphorous 2.9 mg/dL (2.7-4.5); Potassium 4.3 mEq/L (3.5-5.1); Total Protein 5.7 g/dL (6.4-8.9); Troponin I 0.03 ng/mL (< 0.04)
[2020-01-05] MEDS ORDERED: Insulin DETEMIR 100 UNIT/ML X5UNITS SQ SCH (09:00)
[2020-01-05] MEDS ORDERED: Insulin Human Regular 100 UNIT in 0.9 % Sodium Chloride 100 ML IVC SCH ×2 (09:15→17:00)
[2020-01-05 09:19] LABS: Estimated Average Glucose 286 mg/dl
[2020-01-05] MEDS: MethylPREDNISolone 40 MG/ML VIAL IVP SCH ×3 (09:28→22:13)
[2020-01-05] MEDS: Azithromycin 500 MG in 0.9 % Sodium Chloride 250 ML IVPB SCH (09:31)
[2020-01-05] MEDS: Ipratropium/Albuterol Neb 3 ML IH SCH ×5 (09:45→23:59)
[2020-01-05] MEDS: Budesonide/Formoterol 160/4.5 1 PUFF INH IH SCH ×2 (11:16→20:00)
[2020-01-05 12:23] LABS: VBG HCO3 17 mEq/L (21-27); VBG PCO2 37 mmHg (41-51); VBG PH 7.26 pH Units (7.32-7.42); VBG PO2 72 mmHg (25-50)
[2020-01-05 12:41] LABS: Calcium 8.1 mg/dL (8.6-10.3); Potassium 4.7 mEq/L (3.5-5.1)
[2020-01-05] MEDS ORDERED: Insulin Regular, Human 100 UNIT/ML IV PRN (12:50)
[2020-01-05] MEDS ORDERED: D5% in 0.45% NACL 1,000 ML IVC PRN (12:50)
[2020-01-05 13:25] LABS: Troponin I 0.03 ng/mL (< 0.04)
[2020-01-05 13:46] LABS: Bilirubin,Urine Negative (Negative); Blood,Urine Negative (Negative); Clarity,Urine Clear (Clear); Color,Urine Colorless (Yellow); Glucose,Urine (UA) >=1000 mg/dL (Normal); Ketones,Urine Negative (Negative); Leukocyte Esterase,Urine Negative (Negative); Nitrite,Urine Negative (Negative); PH,Urine 5.5 pH Units (5.0-8.0); Protein,Urine Negative (Neg-Trace); RBC,Urine 0-3 per hpf (0-3); Specific Gravity,Urine 1.021 (1.010-1.025); Urobilinogen,Urine Normal (Normal); WBC,Urine 0-3 per hpf (0-3)
[2020-01-05] MEDS: Insulin Human Regular 100 UNIT in 0.9 % Sodium Chloride 100 ML IVC SCH ×4 (14:02→22:15)
[2020-01-05] MEDS: *HR* Heparin 5,000 UNIT/ML VIAL SQ SCH (17:28)
[2020-01-05] MEDS: 0.45 % Sodium Chloride w/KCl 20 MEQ/1,000 ML MLS IVC SCH (17:34)
[2020-01-05] MEDS: D5% in 0.45% NACL w KCl 20 MEQ/1,000 ML MLS IVC PRN ×2 (17:57→22:13)
[2020-01-05 19:47] LABS: Calcium 8.3 mg/dL (8.6-10.3); Potassium 5.3 mEq/L (3.5-5.1)
[2020-01-05 21:03] LABS: VBG HCO3 17 mEq/L (21-27); VBG PCO2 36 mmHg (41-51); VBG PH 7.28 pH Units (7.32-7.42); VBG PO2 97 mmHg (25-50)
[2020-01-05] MEDS ORDERED: Albuterol 2.5 MG/3 ML NEBULIZER IH PRN (21:50)
[2020-01-06 00:38] LABS: VBG HCO3 14 mEq/L (21-27); VBG PCO2 28 mmHg (41-51); VBG PH 7.31 pH Units (7.32-7.42); VBG PO2 66 mmHg (25-50)
[2020-01-06 01:19] LABS: BUN/Creatinine Ratio 30 (6-26); Blood Urea Nitrogen 37 mg/dL (8-23); Calcium 8.1 mg/dL (8.6-10.3); Carbon Dioxide 15 mEq/L (23-29); Chloride 108 mEq/L (98-107); Glucose 161 mg/dL (70-105); Osmolality,Calculated 286 (280-300); Potassium 4.6 mEq/L (3.5-5.1); Sodium 132 mEq/L (136-145); eGFR For African Americans > 60 (> 60); eGFR For Non-African Americans 57 (> 60)
[2020-01-06] MEDS: Insulin Human Regular 100 UNIT in 0.9 % Sodium Chloride 100 ML IVC SCH (01:20)
[2020-01-06] MEDS ORDERED: Insulin DETEMIR 100 UNIT/ML X5UNITS SQ ONE (01:34)
[2020-01-06] MEDS: D5% in 0.45% NACL w KCl 20 MEQ/1,000 ML MLS IVC PRN (02:37)
[2020-01-06] MEDS: Ipratropium/Albuterol Neb 3 ML IH SCH ×6 (04:18→23:44)
[2020-01-06 05:31] LABS: VBG HCO3 19 mEq/L (21-27); VBG PCO2 44 mmHg (41-51); VBG PH 7.23 pH Units (7.32-7.42); VBG PO2 52 mmHg (25-50)
[2020-01-06 05:49] LABS: BUN/Creatinine Ratio 26 (6-26); Blood Urea Nitrogen 34 mg/dL (8-23); Calcium 8.4 mg/dL (8.6-10.3); Carbon Dioxide 18 mEq/L (23-29); Chloride 110 mEq/L (98-107); Glucose 262 mg/dL (70-105); Magnesium 1.4 mg/dL (1.6-2.6); Osmolality,Calculated 295 (280-300); Phosphorous 1.2 mg/dL (2.7-4.5); Potassium 5.4 mEq/L (3.5-5.1); Sodium 134 mEq/L (136-145); eGFR For African Americans > 60 (> 60); eGFR For Non-African Americans 55 (> 60)
[2020-01-06] MEDS: *HR* Heparin 5,000 UNIT/ML VIAL SQ SCH ×2 (06:12→17:24)
[2020-01-06] MEDS: Budesonide/Formoterol 160/4.5 1 PUFF INH IH SCH ×2 (07:43→19:50)
[2020-01-06] MEDS: MethylPREDNISolone 40 MG/ML VIAL IVP SCH ×2 (08:13→17:26)
[2020-01-06] MEDS: Azithromycin 500 MG in 0.9 % Sodium Chloride 250 ML IVPB SCH (08:14)
[2020-01-06] MEDS: Insulin LISPRO 300 UNITS/3 ML VIAL SQ SCH ×3 (08:15→16:36)
[2020-01-06] MEDS: 0.45 % Sodium Chloride w/KCl 20 MEQ/1,000 ML MLS IVC SCH (09:19)
[2020-01-06] MEDS: Gabapentin 300 MG CAPSULE PO SCH ×2 (16:36→22:41)
[2020-01-06] MEDS: predniSONE 20 MG TABLET PO SCH (17:24)
[2020-01-06] MEDS ORDERED: Insulin LISPRO 300 UNITS/3 ML VIAL SQ SCH (21:00)
[2020-01-06] MEDS: Insulin DETEMIR 100 UNIT/ML X5UNITS SQ SCH (22:41)
[2020-01-06] MEDS ORDERED: Simethicone 80 MG TAB.CHEW PO PRN (23:57)
[2020-01-07 00:49] LABS: Hematocrit 32.4 % (37.5-50.1); Hemoglobin 10.8 g/dL (12.9-16.9); Mean Corpuscular HGB Conc 33.3 g/dL (31.6-35.5); Mean Corpuscular Hemoglobin 32.5 pg (28.0-33.3); Mean Corpuscular Volume 97.6 fL (83.0-100.0); Mean Platelet Volume 10.6 fL (9.4-12.4); Platelet Count 147 K/mcL (140-400); Red Blood Count 3.32 M/mcL (4.19-5.50); Red Cell Distribution Width 14.3 % (11.5-14.5)
[2020-01-07 00:50] LABS: White Blood Count 9.9 K/mcL (4.3-11.1)
[2020-01-07 00:52] LABS: VBG HCO3 15 mEq/L (21-27); VBG PCO2 26 mmHg (41-51); VBG PH 7.39 pH Units (7.32-7.42); VBG PO2 178 mmHg (25-50)
[2020-01-07 01:30] LABS: BUN/Creatinine Ratio 28 (6-26); Blood Urea Nitrogen 38 mg/dL (8-23); Calcium 8.3 mg/dL (8.6-10.3); Carbon Dioxide 14 mEq/L (23-29); Chloride 102 mEq/L (98-107); Glucose 557 mg/dL (70-105); Magnesium 1.8 mg/dL (1.6-2.6); Osmolality,Calculated 297 (280-300); Phosphorous 2.3 mg/dL (2.7-4.5); Potassium 5.9 mEq/L (3.5-5.1); Sodium 126 mEq/L (136-145); eGFR For African Americans > 60 (> 60); eGFR For Non-African Americans 52 (> 60)
[2020-01-07] MEDS ORDERED: D5% in 0.45% NACL w KCl 20 MEQ/1,000 ML MLS IVC PRN ×2 (01:48→13:29)
[2020-01-07] MEDS ORDERED: Insulin Regular, Human 100 UNIT/ML IV ONE (01:48)
[2020-01-07] MEDS ORDERED: D5% in 0.45% NACL 1,000 ML IVC PRN ×2 (01:48→13:29)
[2020-01-07] MEDS ORDERED: Insulin Regular, Human 100 UNIT/ML IV PRN ×2 (01:48)
[2020-01-07] MEDS ORDERED: 0.9 % Sodium Chloride 1,000 ML IVC PRN (02:00)
[2020-01-07] MEDS: Insulin Human Regular 100 UNIT in 0.9 % Sodium Chloride 100 ML IVC SCH ×4 (03:02→17:27)
[2020-01-07] MEDS: Ipratropium/Albuterol Neb 3 ML IH SCH ×6 (03:17→23:30)
[2020-01-07] MEDS: *HR* Heparin 5,000 UNIT/ML VIAL SQ SCH ×2 (05:20→17:26)
[2020-01-07 06:28] LABS: VBG HCO3 16 mEq/L (21-27); VBG PCO2 38 mmHg (41-51); VBG PH 7.24 pH Units (7.32-7.42); VBG PO2 111 mmHg (25-50)
[2020-01-07 07:14] LABS: BUN/Creatinine Ratio 26 (6-26); Blood Urea Nitrogen 36 mg/dL (8-23); Calcium 8.8 mg/dL (8.6-10.3); Carbon Dioxide 14 mEq/L (23-29); Chloride 107 mEq/L (98-107); Glucose 324 mg/dL (70-105); Osmolality,Calculated 297 (280-300); Potassium 5.1 mEq/L (3.5-5.1); Sodium 133 mEq/L (136-145); eGFR For African Americans > 60 (> 60); eGFR For Non-African Americans 51 (> 60)
[2020-01-07] MEDS: 0.9 % Sodium Chloride w KCl 20 MEQ/1,000 ML MLS IVC PRN ×2 (07:29→09:49)
[2020-01-07] MEDS: Gabapentin 300 MG CAPSULE PO SCH ×3 (07:39→20:15)
[2020-01-07] MEDS: Azithromycin 500 MG in 0.9 % Sodium Chloride 250 ML IVPB SCH (07:40)
[2020-01-07] MEDS: predniSONE 20 MG TABLET PO SCH (07:40)
[2020-01-07] MEDS: Budesonide/Formoterol 160/4.5 1 PUFF INH IH SCH ×2 (08:03→20:21)
[2020-01-07 10:37] LABS: VBG HCO3 16 mEq/L (21-27); VBG PCO2 35 mmHg (41-51); VBG PH 7.26 pH Units (7.32-7.42); VBG PO2 228 mmHg (25-50)
[2020-01-07 10:49] LABS: BUN/Creatinine Ratio 27 (6-26); Blood Urea Nitrogen 32 mg/dL (8-23); Calcium 8.2 mg/dL (8.6-10.3); Carbon Dioxide 13 mEq/L (23-29); Chloride 112 mEq/L (98-107); Glucose 229 mg/dL (70-105); Osmolality,Calculated 290 (280-300); Potassium 5.5 mEq/L (3.5-5.1); Sodium 133 mEq/L (136-145); eGFR For African Americans > 60 (> 60); eGFR For Non-African Americans > 60 (> 60)
[2020-01-07] MEDS: D5% in Water 1,000 ML IVC SCH (14:04)
[2020-01-07 14:25] LABS: VBG HCO3 15 mEq/L (21-27); VBG PCO2 28 mmHg (41-51); VBG PH 7.34 pH Units (7.32-7.42); VBG PO2 213 mmHg (25-50)
[2020-01-07 14:38] LABS: BUN/Creatinine Ratio 28 (6-26); Blood Urea Nitrogen 29 mg/dL (8-23); Calcium 8.2 mg/dL (8.6-10.3); Carbon Dioxide 15 mEq/L (23-29); Chloride 116 mEq/L (98-107); Glucose 175 mg/dL (70-105); Osmolality,Calculated 292 (280-300); Sodium 136 mEq/L (136-145); eGFR For African Americans > 60 (> 60); eGFR For Non-African Americans > 60 (> 60)
[2020-01-07 18:33] LABS: VBG HCO3 17 mEq/L (21-27); VBG PCO2 40 mmHg (41-51); VBG PH 7.25 pH Units (7.32-7.42); VBG PO2 201 mmHg (25-50)
[2020-01-07 18:56] LABS: BUN/Creatinine Ratio 25 (6-26); Blood Urea Nitrogen 27 mg/dL (8-23); Calcium 8.6 mg/dL (8.6-10.3); Carbon Dioxide 16 mEq/L (23-29); Chloride 114 mEq/L (98-107); Glucose 89 mg/dL (70-105); Osmolality,Calculated 287 (280-300); Potassium 5.2 mEq/L (3.5-5.1); Sodium 136 mEq/L (136-145); eGFR For African Americans > 60 (> 60); eGFR For Non-African Americans > 60 (> 60)
[2020-01-07] MEDS ORDERED: D5% in 0.45% NACL w KCl 20 MEQ/1,000 ML MLS IVC SCH (20:15)
[2020-01-07] MEDS: Insulin DETEMIR 100 UNIT/ML X5UNITS SQ SCH (20:16)
[2020-01-07] MEDS: D5% in 0.45% NACL w KCl 20 MEQ/1,000 ML MLS IVC SCH (20:16)
[2020-01-08 00:56] LABS: VBG HCO3 19 mEq/L (21-27); VBG PCO2 46 mmHg (41-51); VBG PH 7.23 pH Units (7.32-7.42); VBG PO2 72 mmHg (25-50)
[2020-01-08 02:49] LABS: Hematocrit 32.5 % (37.5-50.1); Hemoglobin 10.1 g/dL (12.9-16.9); Mean Corpuscular HGB Conc 31.1 g/dL (31.6-35.5); Mean Corpuscular Volume 102.8 fL (83.0-100.0); Mean Platelet Volume 10.2 fL (9.4-12.4); Platelet Count 115 K/mcL (140-400); Red Blood Count 3.16 M/mcL (4.19-5.50); Red Cell Distribution Width 14.8 % (11.5-14.5); White Blood Count 5.4 K/mcL (4.3-11.1)
[2020-01-08 02:58] LABS: VBG HCO3 16 mEq/L (21-27); VBG PCO2 33 mmHg (41-51); VBG PO2 167 mmHg (25-50)
[2020-01-08 03:06] LABS: BUN/Creatinine Ratio 24 (6-26); Blood Urea Nitrogen 24 mg/dL (8-23); Calcium 8.1 mg/dL (8.6-10.3); Carbon Dioxide 14 mEq/L (23-29); Chloride 116 mEq/L (98-107); Glucose 242 mg/dL (70-105); Osmolality,Calculated 296 (280-300); Potassium 5.3 mEq/L (3.5-5.1); Sodium 137 mEq/L (136-145); eGFR For African Americans > 60 (> 60); eGFR For Non-African Americans > 60 (> 60)
[2020-01-08] MEDS: Ipratropium/Albuterol Neb 3 ML IH SCH ×6 (03:26→23:49)
[2020-01-08] MEDS: D5% in 0.45% NACL w KCl 20 MEQ/1,000 ML MLS IVC SCH (03:55)
[2020-01-08] MEDS: Insulin Human Regular 100 UNIT in 0.9 % Sodium Chloride 100 ML IVC SCH ×2 (05:33→08:02)
[2020-01-08] MEDS: Azithromycin 250 MG TABLET PO SCH (07:40)
[2020-01-08] MEDS: Gabapentin 300 MG CAPSULE PO SCH ×3 (07:40→20:22)
[2020-01-08] MEDS: predniSONE 20 MG TABLET PO SCH (07:41)
[2020-01-08] MEDS: Budesonide/Formoterol 160/4.5 1 PUFF INH IH SCH ×2 (07:52→20:13)
[2020-01-08 09:15] LABS: BUN/Creatinine Ratio 20 (6-26); Blood Urea Nitrogen 19 mg/dL (8-23); Calcium 8.6 mg/dL (8.6-10.3); Carbon Dioxide 17 mEq/L (23-29); Chloride 114 mEq/L (98-107); Glucose 85 mg/dL (70-105); Osmolality,Calculated 288 (280-300); Potassium 4.3 mEq/L (3.5-5.1); Sodium 138 mEq/L (136-145); eGFR For African Americans > 60 (> 60); eGFR For Non-African Americans > 60 (> 60)
[2020-01-08] MEDS ORDERED: Insulin DETEMIR 100 UNIT/ML X5UNITS SQ ONE (09:43)
[2020-01-08] MEDS: *HR* Heparin 5,000 UNIT/ML VIAL SQ SCH ×2 (10:16→17:07)
[2020-01-08] MEDS: Insulin LISPRO 300 UNITS/3 ML VIAL SQ SCH ×2 (13:17→17:06)
[2020-01-08 14:52] LABS: VBG HCO3 18 mEq/L (21-27); VBG PCO2 43 mmHg (41-51); VBG PH 7.23 pH Units (7.32-7.42); VBG PO2 94 mmHg (25-50)
[2020-01-08 15:52] LABS: BUN/Creatinine Ratio 19 (6-26); Blood Urea Nitrogen 19 mg/dL (8-23); Calcium 8.3 mg/dL (8.6-10.3); Carbon Dioxide 17 mEq/L (23-29); Chloride 111 mEq/L (98-107); Glucose 273 mg/dL (70-105); Osmolality,Calculated 292 (280-300); Potassium 6.4 mEq/L (3.5-5.1); Sodium 135 mEq/L (136-145); eGFR For African Americans > 60 (> 60); eGFR For Non-African Americans > 60 (> 60)
[2020-01-08 19:34] LABS: BUN/Creatinine Ratio 21 (6-26); Blood Urea Nitrogen 21 mg/dL (8-23); Calcium 8.5 mg/dL (8.6-10.3); Carbon Dioxide 17 mEq/L (23-29); Chloride 109 mEq/L (98-107); Glucose 338 mg/dL (70-105); Osmolality,Calculated 290 (280-300); Sodium 132 mEq/L (136-145); eGFR For African Americans > 60 (> 60); eGFR For Non-African Americans > 60 (> 60)
[2020-01-08] MEDS ORDERED: Calcium Gluconate 1gm/50mL 1 GM/50 ML BAG IVPB ONE (19:41)
[2020-01-08] MEDS ORDERED: Insulin Human Regular 10 UNIT in 0.9 % Sodium Chloride 10 ML IV ONE (19:41)
[2020-01-08] MEDS: D5% in Water 1,000 ML IVC SCH (20:04)
[2020-01-08] MEDS: Insulin DETEMIR 100 UNIT/ML X5UNITS SQ SCH (21:43)
[2020-01-08 22:03] LABS: BUN/Creatinine Ratio 23 (6-26); Blood Urea Nitrogen 24 mg/dL (8-23); Calcium 8.6 mg/dL (8.6-10.3); Carbon Dioxide 13 mEq/L (23-29); Chloride 110 mEq/L (98-107); Glucose 329 mg/dL (70-105); Osmolality,Calculated 293 (280-300); Potassium 6.2 mEq/L (3.5-5.1); Sodium 133 mEq/L (136-145); eGFR For African Americans > 60 (> 60); eGFR For Non-African Americans > 60 (> 60)
[2020-01-08 22:04] LABS: Potassium 6.6 mEq/L (3.5-5.1)
[2020-01-08] MEDS ORDERED: Insulin Regular, Human 100 UNIT/ML IV ONE (22:52)
[2020-01-08] MEDS ORDERED: Insulin Regular, Human 100 UNIT/ML IV PRN ×2 (22:52)
[2020-01-08] MEDS ORDERED: D5% in 0.45% NACL w KCl 20 MEQ/1,000 ML MLS IVC PRN (22:52)
[2020-01-08] MEDS ORDERED: Insulin Human Regular 100 UNIT in 0.9 % Sodium Chloride 100 ML IVC SCH (23:00)
[2020-01-08] MEDS ORDERED: 0.45 % Sodium Chloride w/KCl 20 MEQ/1,000 ML MLS IVC PRN (23:00)
[2020-01-08 23:14] LABS: VBG HCO3 16 mEq/L (21-27); VBG PCO2 33 mmHg (41-51); VBG PH 7.29 pH Units (7.32-7.42); VBG PO2 165 mmHg (25-50)
[2020-01-09] MEDS: Insulin Human Regular 100 UNIT in 0.9 % Sodium Chloride 100 ML IVC SCH ×2 (03:30→03:57)
[2020-01-09] MEDS: D5% in 0.45% NACL 1,000 ML IVC PRN ×2 (03:30→05:54)
[2020-01-09] MEDS: Ipratropium/Albuterol Neb 3 ML IH SCH ×4 (03:35→15:58)
[2020-01-09 03:53] LABS: VBG HCO3 18 mEq/L (21-27); VBG PCO2 31 mmHg (41-51); VBG PH 7.36 pH Units (7.32-7.42); VBG PO2 220 mmHg (25-50)
[2020-01-09 03:55] LABS: Hemoglobin 9.9 g/dL (12.9-16.9); Mean Corpuscular HGB Conc 31.9 g/dL (31.6-35.5); Mean Corpuscular Hemoglobin 31.5 pg (28.0-33.3); Mean Corpuscular Volume 98.7 fL (83.0-100.0); Mean Platelet Volume 10.2 fL (9.4-12.4); Platelet Count 147 K/mcL (140-400); Red Blood Count 3.14 M/mcL (4.19-5.50); Red Cell Distribution Width 14.7 % (11.5-14.5); White Blood Count 7.6 K/mcL (4.3-11.1)
[2020-01-09 04:10] LABS: BUN/Creatinine Ratio 24 (6-26); Blood Urea Nitrogen 23 mg/dL (8-23); Calcium 8.5 mg/dL (8.6-10.3); Carbon Dioxide 16 mEq/L (23-29); Chloride 113 mEq/L (98-107); Glucose 155 mg/dL (70-105); Osmolality,Calculated 289 (280-300); Potassium 5.2 mEq/L (3.5-5.1); Sodium 136 mEq/L (136-145); eGFR For African Americans > 60 (> 60); eGFR For Non-African Americans > 60 (> 60)
[2020-01-09] MEDS: D5% in Water 1,000 ML IVC SCH (04:50)
[2020-01-09] MEDS: *HR* Heparin 5,000 UNIT/ML VIAL SQ SCH (04:51)
[2020-01-09] MEDS: Insulin LISPRO 300 UNITS/3 ML VIAL SQ SCH ×2 (07:29→12:56)
[2020-01-09] MEDS: Azithromycin 250 MG TABLET PO SCH (07:30)
[2020-01-09] MEDS: Gabapentin 300 MG CAPSULE PO SCH (07:30)
[2020-01-09] MEDS: Budesonide/Formoterol 160/4.5 1 PUFF INH IH SCH (08:10)
[2020-01-09 08:27] LABS: VBG HCO3 19 mEq/L (21-27); VBG PCO2 48 mmHg (41-51); VBG PH 7.22 pH Units (7.32-7.42); VBG PO2 133 mmHg (25-50)
[2020-01-09 08:42] LABS: BUN/Creatinine Ratio 21 (6-26); Blood Urea Nitrogen 21 mg/dL (8-23); Carbon Dioxide 20 mEq/L (23-29); Chloride 113 mEq/L (98-107); Glucose 55 mg/dL (70-105); Osmolality,Calculated 285 (280-300); Sodium 137 mEq/L (136-145); eGFR For African Americans > 60 (> 60); eGFR For Non-African Americans > 60 (> 60)
[2020-01-09] MEDS ORDERED: Metoprolol XL (24 HR) Succ 25 MG TAB.ER.24H PO SCH (09:00)
[2020-01-09] MEDS ORDERED: Insulin DETEMIR 100 UNIT/ML X5UNITS SQ SCH ×2 (09:00)
[2020-01-09] MEDS ORDERED: predniSONE 20 MG TABLET PO ONE (09:00)
[2020-01-09 11:44] VITALS: BP 131/79
[2020-01-09 12:31] LABS: VBG HCO3 18 mEq/L (21-27); VBG PCO2 43 mmHg (41-51); VBG PH 7.24 pH Units (7.32-7.42); VBG PO2 95 mmHg (25-50)
[2020-01-09 12:48] LABS: BUN/Creatinine Ratio 19 (6-26); Blood Urea Nitrogen 21 mg/dL (8-23); Calcium 9.1 mg/dL (8.6-10.3); Carbon Dioxide 18 mEq/L (23-29); Chloride 110 mEq/L (98-107); Glucose 143 mg/dL (70-105); Osmolality,Calculated 285 (280-300); Potassium 5.1 mEq/L (3.5-5.1); Sodium 135 mEq/L (136-145); eGFR For African Americans > 60 (> 60); eGFR For Non-African Americans > 60 (> 60)
== END 2020-01-09 17:33 | disposition home or self-care (01) | DRG 682 ==
LOC: 2ANU → CDU 05:49 → 2ANU 06:27 → 2NNU 17:29
PROVIDERS: ADMIT Student in an Organized Health Care Education/Training Program; ATTEND Student in an Organized Health Care Education/Training Program

== ENCOUNTER 2020-01-13 02:02 | Inpatient (IN) ==
[2020-01-13] MEDS ORDERED: Naloxone 0.4 MG/ML INJ IVP PRN ×2 (06:11→14:50)
[2020-01-13 07:06] LABS: Basophils % 0.1 %; Eosinophils % 0.4 %; Hemoglobin 10.3 g/dL (12.9-16.9); Immature Granulocytes % 0.5 % (0-4); Lymphocytes # 1.8 K/mcL (0.6-4.6); Lymphocytes % 19.7 %; Mean Corpuscular HGB Conc 32.2 g/dL (31.6-35.5); Mean Corpuscular Hemoglobin 31.3 pg (28.0-33.3); Mean Corpuscular Volume 97.3 fL (83.0-100.0); Mean Platelet Volume 9.7 fL (9.4-12.4); Monocytes # 0.9 K/mcL (0.0-1.3); Monocytes % 9.1 %; Neutrophils # 6.5 K/mcL (1.6-8.9); Platelet Count 142 K/mcL (140-400); Red Blood Count 3.29 M/mcL (4.19-5.50); Red Cell Distribution Width 14.7 % (11.5-14.5); Segmented Neutrophils % 70.2 %; White Blood Count 9.3 K/mcL (4.3-11.1)
[2020-01-13 07:11] LABS: Heparin anti-factor XA UFH 0.56 IU/mL (0.30-0.70)
[2020-01-13 07:24] LABS: BUN/Creatinine Ratio 24 (6-26); Blood Urea Nitrogen 20 mg/dL (8-23); Calcium 8.3 mg/dL (8.6-10.3); Carbon Dioxide 20 mEq/L (23-29); Chloride 113 mEq/L (98-107); Glucose 127 mg/dL (70-105); Magnesium 1.1 mg/dL (1.6-2.6); Osmolality,Calculated 290 (280-300); Potassium 4.1 mEq/L (3.5-5.1); Sodium 138 mEq/L (136-145); eGFR For African Americans > 60 (> 60); eGFR For Non-African Americans > 60 (> 60)
[2020-01-13] MEDS ORDERED: Perflutren Lipid Microsphere 1.3 ML in 0.9 % Sodium Chloride 8.7 ML IVP PRN (07:35)
[2020-01-13] MEDS ORDERED: *HR* Dextrose 50 % in Water (Vial) 50 ML VIAL IVP PRN ×2 (07:36→14:50)
[2020-01-13] MEDS ORDERED: D5% in Water 1,000 ML IVC PRN ×2 (07:36→14:50)
[2020-01-13] MEDS ORDERED: Dextrose Gel 15 GM/37.5 ML TUBE PO PRN ×4 (07:36→14:50)
[2020-01-13] MEDS ORDERED: *HR* Heparin 5,000 UNIT/ML VIAL IVP PRN ×4 (07:37→14:50)
[2020-01-13] MEDS ORDERED: Heparin 25,000UNIT/250ML 1/2NS 25,000 UNIT/250 ML IV.SOLN IVC SCH ×2 (07:45→14:50)
[2020-01-13] MEDS ORDERED: *HR* Heparin 5,000 UNIT/ML VIAL SQ SCH (08:00)
[2020-01-13 08:29] LABS: INR 1.1; Prothrombin Time 12.8 Seconds (9.4-12.1)
[2020-01-13 09:15] LABS: Basophils % 0.1 %; Eosinophils # 0.1 K/mcL (0.0-0.6); Hematocrit 30.2 % (37.5-50.1); Hemoglobin 9.8 g/dL (12.9-16.9); Immature Granulocytes % 0.6 % (0-4); Lymphocytes # 1.6 K/mcL (0.6-4.6); Lymphocytes % 21.7 %; Mean Corpuscular HGB Conc 32.5 g/dL (31.6-35.5); Mean Corpuscular Hemoglobin 31.8 pg (28.0-33.3); Mean Corpuscular Volume 98.1 fL (83.0-100.0); Mean Platelet Volume 9.3 fL (9.4-12.4); Monocytes # 0.7 K/mcL (0.0-1.3); Monocytes % 9.7 %; Neutrophils # 4.8 K/mcL (1.6-8.9); Platelet Count 120 K/mcL (140-400); Red Blood Count 3.08 M/mcL (4.19-5.50); Red Cell Distribution Width 14.7 % (11.5-14.5); Segmented Neutrophils % 66.9 %; White Blood Count 7.2 K/mcL (4.3-11.1)
[2020-01-13 09:35] LABS: BUN/Creatinine Ratio 23 (6-26); Blood Urea Nitrogen 19 mg/dL (8-23); Calcium 7.8 mg/dL (8.6-10.3); Carbon Dioxide 20 mEq/L (23-29); Chloride 113 mEq/L (98-107); Glucose 149 mg/dL (70-105); Osmolality,Calculated 291 (280-300); Potassium 3.9 mEq/L (3.5-5.1); Sodium 138 mEq/L (136-145); eGFR For African Americans > 60 (> 60); eGFR For Non-African Americans > 60 (> 60)
[2020-01-13 09:42] LABS: Phosphorous 2.7 mg/dL (2.7-4.5)
[2020-01-13] MEDS ORDERED: Potassium Phosphate 44 MEQ in 0.9 % Sodium Chloride 250 ML IVPB PRN ×3 (10:02→15:21)
[2020-01-13] MEDS ORDERED: Calcium Gluconate 1gm/50mL 1 GM/50 ML BAG IVPB PRN ×3 (10:04→15:21)
[2020-01-13] MEDS ORDERED: Insulin LISPRO 300 UNITS/3 ML VIAL SQ SCH ×2 (12:00→18:00)
[2020-01-13] MEDS: Budesonide/Formoterol 160/4.5 1 PUFF INH IH SCH (20:15)
[2020-01-13] MEDS: Insulin DETEMIR 100 UNIT/ML X5UNITS SQ SCH (21:47)
[2020-01-13] MEDS: *HR* Heparin 5,000 UNIT/ML VIAL SQ SCH (21:49)
[2020-01-13] MEDS: Insulin LISPRO 300 UNITS/3 ML VIAL SQ SCH (21:51)
[2020-01-14] MEDS: *HR* Heparin 5,000 UNIT/ML VIAL SQ SCH (05:44)
[2020-01-14] MEDS: Budesonide/Formoterol 160/4.5 1 PUFF INH IH SCH ×2 (07:49→20:04)
[2020-01-14 08:04] LABS: BUN/Creatinine Ratio 20 (6-26); Blood Urea Nitrogen 20 mg/dL (8-23); Calcium 8.5 mg/dL (8.6-10.3); Carbon Dioxide 21 mEq/L (23-29); Chloride 112 mEq/L (98-107); Glucose 157 mg/dL (70-105); Osmolality,Calculated 294 (280-300); Potassium 4.4 mEq/L (3.5-5.1); Sodium 139 mEq/L (136-145); eGFR For African Americans > 60 (> 60); eGFR For Non-African Americans > 60 (> 60)
[2020-01-14] MEDS: Insulin LISPRO 300 UNITS/3 ML VIAL SQ SCH ×4 (08:16→21:19)
[2020-01-14] MEDS: Aspirin 81 MG TAB.CHEW PO SCH (08:18)
[2020-01-14] MEDS: Metoprolol XL (24 HR) Succ 25 MG TAB.ER.24H PO SCH (12:25)
[2020-01-14] MEDS ORDERED: *HR* Heparin 5,000 UNIT/ML VIAL IVP ONE (12:50)
[2020-01-14] MEDS ORDERED: *HR* Heparin 5,000 UNIT/ML VIAL IVP PRN ×2 (12:50)
[2020-01-14] MEDS ORDERED: Heparin 25,000UNIT/250ML 1/2NS 25,000 UNIT/250 ML IV.SOLN IVC SCH (13:00)
[2020-01-14 14:04] LABS: Heparin anti-factor XA UFH < 0.04 IU/mL (0.30-0.70); INR 1.1; Prothrombin Time 12.1 Seconds (9.4-12.1)
[2020-01-14 14:10] LABS: Hematocrit 31.4 % (37.5-50.1); Hemoglobin 10.2 g/dL (12.9-16.9); Mean Corpuscular HGB Conc 32.5 g/dL (31.6-35.5); Mean Corpuscular Hemoglobin 32.3 pg (28.0-33.3); Mean Corpuscular Volume 99.4 fL (83.0-100.0); Mean Platelet Volume 9.6 fL (9.4-12.4); Platelet Count 116 K/mcL (140-400); Red Blood Count 3.16 M/mcL (4.19-5.50); Red Cell Distribution Width 14.6 % (11.5-14.5); White Blood Count 4.8 K/mcL (4.3-11.1)
[2020-01-14] MEDS: Insulin DETEMIR 100 UNIT/ML X5UNITS SQ SCH (21:18)
[2020-01-15 02:10] LABS: Hematocrit 29.2 % (37.5-50.1); Hemoglobin 9.4 g/dL (12.9-16.9); Mean Corpuscular HGB Conc 32.2 g/dL (31.6-35.5); Mean Corpuscular Hemoglobin 31.6 pg (28.0-33.3); Mean Corpuscular Volume 98.3 fL (83.0-100.0); Platelet Count 117 K/mcL (140-400); Red Blood Count 2.97 M/mcL (4.19-5.50); Red Cell Distribution Width 14.6 % (11.5-14.5); White Blood Count 4.9 K/mcL (4.3-11.1)
[2020-01-15 02:31] LABS: BUN/Creatinine Ratio 19 (6-26); Blood Urea Nitrogen 19 mg/dL (8-23); Calcium 8.2 mg/dL (8.6-10.3); Carbon Dioxide 17 mEq/L (23-29); Chloride 108 mEq/L (98-107); Glucose 250 mg/dL (70-105); Osmolality,Calculated 291 (280-300); Potassium 4.2 mEq/L (3.5-5.1); Sodium 135 mEq/L (136-145); eGFR For African Americans > 60 (> 60); eGFR For Non-African Americans > 60 (> 60)
[2020-01-15] MEDS: Budesonide/Formoterol 160/4.5 1 PUFF INH IH SCH ×2 (07:46→22:34)
[2020-01-15] MEDS: Metoprolol XL (24 HR) Succ 25 MG TAB.ER.24H PO SCH (08:44)
[2020-01-15] MEDS: Aspirin 81 MG TAB.CHEW PO SCH (08:44)
[2020-01-15] MEDS: Insulin LISPRO 300 UNITS/3 ML VIAL SQ SCH ×4 (08:46→20:50)
[2020-01-15] MEDS ORDERED: Nitroglycerin 1,000 MCG/10 ML VIAL IV ONE (12:17)
[2020-01-15] MEDS ORDERED: 0.9 % Sodium Chloride 1,000 ML ONE ×2 (12:17→12:32)
[2020-01-15] MEDS ORDERED: *HR* Heparin 10,000 UNIT/10 ML VIAL ONE (12:17)
[2020-01-15] MEDS ORDERED: Heparin 1,000 UNITS/500 mL 500 ML ONE (12:17)
[2020-01-15] MEDS ORDERED: ISOVUE-370 200 ML INFUS..BTL ONE (12:17)
[2020-01-15] MEDS ORDERED: *HR* FentaNYL (PF) 100 MCG/2 ML VIAL ONE (13:12)
[2020-01-15] MEDS ORDERED: *HR* Midazolam HCl 2 MG/2 ML VIAL ONE (13:12)
[2020-01-15] MEDS ORDERED: *HR* Heparin 5,000 UNIT/ML VIAL IVP PRN ×2 (19:29)
[2020-01-15] MEDS: Insulin DETEMIR 100 UNIT/ML X5UNITS SQ SCH (20:50)
[2020-01-15] MEDS: Heparin 25,000UNIT/250ML 1/2NS 25,000 UNIT/250 ML IV.SOLN IVC SCH (20:51)
[2020-01-16 03:10] LABS: Hematocrit 31.1 % (37.5-50.1); Hemoglobin 9.9 g/dL (12.9-16.9); Mean Corpuscular HGB Conc 31.8 g/dL (31.6-35.5); Mean Corpuscular Hemoglobin 31.5 pg (28.0-33.3); Mean Platelet Volume 9.5 fL (9.4-12.4); Platelet Count 104 K/mcL (140-400); Red Blood Count 3.14 M/mcL (4.19-5.50); Red Cell Distribution Width 14.5 % (11.5-14.5); White Blood Count 5.5 K/mcL (4.3-11.1)
[2020-01-16 03:39] LABS: BUN/Creatinine Ratio 14 (6-26); Blood Urea Nitrogen 16 mg/dL (8-23); Calcium 8.4 mg/dL (8.6-10.3); Carbon Dioxide 21 mEq/L (23-29); Chloride 106 mEq/L (98-107); Glucose 269 mg/dL (70-105); Osmolality,Calculated 293 (280-300); Potassium 4.5 mEq/L (3.5-5.1); Sodium 136 mEq/L (136-145); eGFR For African Americans > 60 (> 60); eGFR For Non-African Americans > 60 (> 60)
[2020-01-16] MEDS: Aspirin 81 MG TAB.CHEW PO SCH (07:56)
[2020-01-16] MEDS: Metoprolol XL (24 HR) Succ 25 MG TAB.ER.24H PO SCH (07:57)
[2020-01-16] MEDS: Insulin LISPRO 300 UNITS/3 ML VIAL SQ SCH ×4 (07:58→21:01)
[2020-01-16] MEDS: Budesonide/Formoterol 160/4.5 1 PUFF INH IH SCH ×2 (08:00→20:22)
[2020-01-16 10:44] LABS: Basophils % 0.4 %; Eosinophils # 0.1 K/mcL (0.0-0.6); Eosinophils % 2.6 %; Hematocrit 29.7 % (37.5-50.1); Hemoglobin 9.5 g/dL (12.9-16.9); Immature Granulocytes % 0.6 % (0-4); Lymphocytes # 1.2 K/mcL (0.6-4.6); Mean Corpuscular Hemoglobin 32.1 pg (28.0-33.3); Mean Corpuscular Volume 100.3 fL (83.0-100.0); Monocytes # 0.4 K/mcL (0.0-1.3); Monocytes % 7.8 %; Neutrophils # 3.5 K/mcL (1.6-8.9); Platelet Count 108 K/mcL (140-400); Red Blood Count 2.96 M/mcL (4.19-5.50); Red Cell Distribution Width 14.3 % (11.5-14.5); Segmented Neutrophils % 65.6 %; White Blood Count 5.4 K/mcL (4.3-11.1)
[2020-01-16 10:45] LABS: INR 1.1; Prothrombin Time 12.7 Seconds (9.4-12.1)
[2020-01-16 10:48] LABS: Activated Partial Thrombo Time 78.3 Seconds (26.0-36.0)
[2020-01-16 10:55] LABS: BUN/Creatinine Ratio 15 (6-26); Blood Urea Nitrogen 17 mg/dL (8-23); Calcium 8.4 mg/dL (8.6-10.3); Carbon Dioxide 21 mEq/L (23-29); Chloride 105 mEq/L (98-107); Chol/HDL Ratio 3.3 (0-4.9); Cholesterol 110 mg/dL (< 200); Glucose 392 mg/dL (70-105); HDL Cholesterol 33 mg/dL (40-59); LDL Cholesterol,Calculated 34 mg/dL (< 100); Osmolality,Calculated 296 (280-300); Potassium 4.6 mEq/L (3.5-5.1); Sodium 134 mEq/L (136-145); Triglycerides 213 mg/dL (< 150); eGFR For African Americans > 60 (> 60); eGFR For Non-African Americans > 60 (> 60)
[2020-01-16] MEDS: Heparin 25,000UNIT/250ML 1/2NS 25,000 UNIT/250 ML IV.SOLN IVC SCH (13:02)
[2020-01-16 14:52] LABS: Estimated Average Glucose 275 mg/dl
[2020-01-16] MEDS: Insulin DETEMIR 100 UNIT/ML X5UNITS SQ SCH ×2 (16:19→21:01)
[2020-01-16] MEDS ORDERED: Chlorhexidine Rinse 15 ML MOUTHWASH MM SCH (21:00)
[2020-01-17 00:49] LABS: Hematocrit 30.1 % (37.5-50.1); Hemoglobin 9.7 g/dL (12.9-16.9); Mean Corpuscular HGB Conc 32.2 g/dL (31.6-35.5); Mean Corpuscular Volume 99.3 fL (83.0-100.0); Mean Platelet Volume 10.1 fL (9.4-12.4); Platelet Count 106 K/mcL (140-400); Red Blood Count 3.03 M/mcL (4.19-5.50); Red Cell Distribution Width 14.6 % (11.5-14.5); White Blood Count 5.2 K/mcL (4.3-11.1)
[2020-01-17 01:06] LABS: BUN/Creatinine Ratio 18 (6-26); Blood Urea Nitrogen 21 mg/dL (8-23); Calcium 8.3 mg/dL (8.6-10.3); Carbon Dioxide 19 mEq/L (23-29); Chloride 106 mEq/L (98-107); Glucose 395 mg/dL (70-105); Osmolality,Calculated 301 (280-300); Potassium 4.2 mEq/L (3.5-5.1); Sodium 136 mEq/L (136-145); eGFR For African Americans > 60 (> 60); eGFR For Non-African Americans > 60 (> 60)
[2020-01-17] MEDS ORDERED: Aspirin 81 MG TAB.CHEW PO ONE (06:00)
[2020-01-17] MEDS: Heparin 25,000UNIT/250ML 1/2NS 25,000 UNIT/250 ML IV.SOLN IVC SCH (06:33)
[2020-01-17] MEDS: Metoprolol XL (24 HR) Succ 25 MG TAB.ER.24H PO SCH (07:38)
[2020-01-17] MEDS: Aspirin 81 MG TAB.CHEW PO SCH (07:38)
[2020-01-17] MEDS: Insulin DETEMIR 100 UNIT/ML X5UNITS SQ SCH (07:39)
[2020-01-17] MEDS: Insulin LISPRO 300 UNITS/3 ML VIAL SQ SCH ×7 (07:39→21:44)
[2020-01-17] MEDS: Budesonide/Formoterol 160/4.5 1 PUFF INH IH SCH ×2 (07:49→20:08)
[2020-01-17] MEDS ORDERED: Insulin DETEMIR 100 UNIT/ML X5UNITS SQ ONE (08:45)
[2020-01-17] MEDS ORDERED: Insulin DETEMIR 100 UNIT/ML X5UNITS SQ SCH (21:00)
[2020-01-17] MEDS: Chlorhexidine Rinse 15 ML MOUTHWASH MM SCH (21:43)
[2020-01-18] MEDS: Heparin 25,000UNIT/250ML 1/2NS 25,000 UNIT/250 ML IV.SOLN IVC SCH (00:36)
[2020-01-18] MEDS ORDERED: Dextrose 50 % in Water (Vial) 30 ML, Sodium Bicarbonate 20 MEQ, Potassium Chloride 15 M... TH ONE (02:00)
[2020-01-18] MEDS ORDERED: Insulin Human Regular 100 UNIT in 0.9 % Sodium Chloride 100 ML IV PRN (02:00)
[2020-01-18] MEDS ORDERED: Norepinephrine 4 MG in 0.9 % Sodium Chloride 250 ML IVC PRN (02:00)
[2020-01-18] MEDS ORDERED: Dextrose 50 % in Water (Vial) 30 ML, Sodium Bicarbonate 20 MEQ, Lidocaine 1% 5 ML, Insu... TH ONE ×3 (02:00)
[2020-01-18] MEDS ORDERED: Heparin 15,000 UNIT in 0.9 % Sodium Chloride 500 ML IV ONE (02:00)
[2020-01-18] MEDS: Chlorhexidine Rinse 15 ML MOUTHWASH MM SCH ×2 (06:44→19:42)
[2020-01-18] MEDS: Metoprolol XL (24 HR) Succ 25 MG TAB.ER.24H PO SCH (06:44)
[2020-01-18 06:49] LABS: Hemoglobin 9.5 g/dL (12.9-16.9); Red Cell Distribution Width 14.6 % (11.5-14.5)
[2020-01-18 06:51] LABS: Hematocrit 30.4 % (37.5-50.1); Immature Platelets 1.7 % (1.1-6.1); Mean Corpuscular HGB Conc 31.3 g/dL (31.6-35.5); Mean Corpuscular Hemoglobin 31.3 pg (28.0-33.3); Mean Platelet Volume 9.8 fL (9.4-12.4); Red Blood Count 3.04 M/mcL (4.19-5.50); White Blood Count 5.6 K/mcL (4.3-11.1)
[2020-01-18 07:13] LABS: BUN/Creatinine Ratio 25 (6-26); Blood Urea Nitrogen 31 mg/dL (8-23); Calcium 8.6 mg/dL (8.6-10.3); Carbon Dioxide 20 mEq/L (23-29); Chloride 107 mEq/L (98-107); Glucose 393 mg/dL (70-105); Osmolality,Calculated 305 (280-300); Potassium 4.2 mEq/L (3.5-5.1); Sodium 136 mEq/L (136-145); eGFR For African Americans > 60 (> 60); eGFR For Non-African Americans 58 (> 60)
[2020-01-18] MEDS ORDERED: Dexamethasone 4 MG/ML VIAL ONE (07:17)
[2020-01-18] MEDS ORDERED: *HR* FentaNYL (PF) 1,000 MCG/20 ML VIAL ONE (07:17)
[2020-01-18] MEDS ORDERED: *HR* Midazolam HCl 5 MG/5 ML VIAL IVP ONE (07:17)
[2020-01-18] MEDS ORDERED: *HR* Rocuronium Bromide 50 MG/5 ML VIAL ONE ×3 (07:17→11:12)
[2020-01-18] MEDS ORDERED: *HR* Propofol 200 MG/20 ML VIAL IVP ONE (07:17)
[2020-01-18] MEDS ORDERED: Tranexamic Acid 1,000 MG/10 ML VIAL ONE (07:17)
[2020-01-18] MEDS ORDERED: *HR* PHENYLEPHRINE 1,000 MCG/10 ML SYRINGE IVP ONE (07:17)
[2020-01-18] MEDS ORDERED: Lidocaine 2% Syringe 100 MG/5 ML ONE (07:17)
[2020-01-18] MEDS ORDERED: *HR* Magnesium Sulfate 1 GM/2 ML VIAL ONE (07:17)
[2020-01-18] MEDS ORDERED: Famotidine 20 MG/2 ML VIAL ONE (07:17)
[2020-01-18] MEDS ORDERED: Clindamycin 900 MG/50 ML 900 MG/50 ML IV.SOLN IVPB ONE ×2 (08:00→08:26)
[2020-01-18 08:01] LABS: ABG Base Excess -3 mEq/L (-2 to 3); ABG Chloride 107 mEq/L (98-107); ABG Glucose 407 mg/dL (60-95); ABG HCO3 23 mEq/L (21-27); ABG Ionized Calcium 1.25 mmol/L (1.15-1.35); ABG Oxygen Saturation 100 % (95-98); ABG PCO2 44 mmHg (35-45); ABG PH 7.33 pH Units (7.32-7.45); ABG PO2 320 mmHg (85-104); ABG TCO2 25 mEq/L (20-26)
[2020-01-18] MEDS ORDERED: Protamine Sulfate 250 MG/25 ML VIAL IVP ONE (09:38)
[2020-01-18] MEDS ORDERED: Calcium Gluconate 1,000 MG/10 ML VIAL ONE (09:39)
[2020-01-18 09:49] LABS: ABG Base Excess -4 mEq/L (-2 to 3); ABG Chloride 107 mEq/L (98-107); ABG Glucose 396 mg/dL (60-95); ABG HCO3 23 mEq/L (21-27); ABG Ionized Calcium 1.18 mmol/L (1.15-1.35); ABG Oxygen Saturation 98 % (95-98); ABG PCO2 49 mmHg (35-45); ABG PH 7.27 pH Units (7.32-7.45); ABG PO2 119 mmHg (85-104); ABG TCO2 24 mEq/L (20-26)
[2020-01-18] MEDS: Budesonide/Formoterol 160/4.5 1 PUFF INH IH SCH ×2 (09:55→19:54)
[2020-01-18 09:58] LABS: ABG Base Excess -4 mEq/L (-2 to 3); ABG Chloride 104 mEq/L (98-107); ABG Glucose 407 mg/dL (60-95); ABG HCO3 23 mEq/L (21-27); ABG Oxygen Saturation 100 % (95-98); ABG PCO2 46 mmHg (35-45); ABG PH 7.31 pH Units (7.32-7.45); ABG PO2 403 mmHg (85-104); ABG TCO2 24 mEq/L (20-26)
[2020-01-18] MEDS ORDERED: *HR* Amiodarone 150 MG/3 ML VIAL IVPB ONE (11:01)
[2020-01-18] MEDS ORDERED: Amiodarone Premix 360 MG/200 ML BAG IVC ONE ×2 (11:01→12:24)
[2020-01-18 11:06] LABS: ABG Base Excess -4 mEq/L (-2 to 3); ABG Chloride 103 mEq/L (98-107); ABG Glucose 354 mg/dL (60-95); ABG HCO3 21 mEq/L (21-27); ABG Ionized Calcium 1.05 mmol/L (1.15-1.35); ABG Oxygen Saturation 100 % (95-98); ABG PCO2 33 mmHg (35-45); ABG PO2 340 mmHg (85-104); ABG TCO2 22 mEq/L (20-26)
[2020-01-18] MEDS ORDERED: Albumin Human 5% 50.0 GM/1,000 ML IV.SOLN ONE (11:32)
[2020-01-18] MEDS ORDERED: 0.9 % Sodium Chloride 500 ML ONE ×2 (11:32→18:37)
[2020-01-18] MEDS ORDERED: Albumin Human 5% 12.5 GM/250 ML IV.SOLN ONE (11:40)
[2020-01-18 11:44] LABS: ABG Base Excess -1 mEq/L (-2 to 3); ABG Chloride 103 mEq/L (98-107); ABG Glucose 283 mg/dL (60-95); ABG HCO3 24 mEq/L (21-27); ABG Ionized Calcium 1.17 mmol/L (1.15-1.35); ABG Oxygen Saturation 100 % (95-98); ABG PCO2 38 mmHg (35-45); ABG PO2 601 mmHg (85-104); ABG TCO2 25 mEq/L (20-26)
[2020-01-18 12:03] LABS: ABG Base Excess -4 mEq/L (-2 to 3); ABG Chloride 104 mEq/L (98-107); ABG Glucose 269 mg/dL (60-95); ABG HCO3 22 mEq/L (21-27); ABG Ionized Calcium 1.17 mmol/L (1.15-1.35); ABG Oxygen Saturation 98 % (95-98); ABG PCO2 43 mmHg (35-45); ABG PH 7.32 pH Units (7.32-7.45); ABG PO2 114 mmHg (85-104); ABG TCO2 24 mEq/L (20-26)
[2020-01-18] MEDS ORDERED: Insulin Regular, Human 100 UNIT/ML IV PRN (12:23)
[2020-01-18] MEDS ORDERED: *HR* Dextrose 50 % in Water (Vial) 50 ML VIAL IVP PRN (12:23)
[2020-01-18] MEDS ORDERED: Potassium Chloride 40 MEQ/200 ML BAG IVPB PRN (12:23)
[2020-01-18] MEDS ORDERED: Ondansetron 4 MG/2 ML VIAL IVP PRN (12:24)
[2020-01-18] MEDS ORDERED: 0.9 % Sodium Chloride w KCl 20 MEQ/1,000 ML MLS IVC SCH (12:30)
[2020-01-18 13:22] LABS: ABG Base Excess -1 mEq/L (-2 to 3); ABG HCO3 26 mEq/L (21-27); ABG Oxygen Saturation 88 % (95-98); ABG PCO2 58 mmHg (35-45); ABG PH 7.26 pH Units (7.32-7.45); ABG PO2 65 mmHg (85-104); ABG TCO2 28 mEq/L (20-26); Blood Gas Modality VC; Blood Gas VT 600 cc
[2020-01-18 13:28] LABS: Basophils % 0.3 %; Eosinophils # 0.1 K/mcL (0.0-0.6); Eosinophils % 0.6 %; Hematocrit 27.7 % (37.5-50.1); Hemoglobin 8.8 g/dL (12.9-16.9); Immature Granulocytes % 1.5 % (0-4); Lymphocytes # 1.1 K/mcL (0.6-4.6); Lymphocytes % 7.5 %; Mean Corpuscular HGB Conc 31.8 g/dL (31.6-35.5); Mean Corpuscular Hemoglobin 31.7 pg (28.0-33.3); Mean Corpuscular Volume 99.6 fL (83.0-100.0); Mean Platelet Volume 9.7 fL (9.4-12.4); Monocytes # 0.8 K/mcL (0.0-1.3); Monocytes % 5.7 %; Platelet Count 120 K/mcL (140-400); Red Blood Count 2.78 M/mcL (4.19-5.50); Red Cell Distribution Width 14.6 % (11.5-14.5); Segmented Neutrophils % 84.4 %
[2020-01-18 13:29] LABS: White Blood Count 14.2 K/mcL (4.3-11.1)
[2020-01-18 13:34] LABS: INR 1.3; Prothrombin Time 14.5 Seconds (9.4-12.1)
[2020-01-18 13:37] LABS: Activated Partial Thrombo Time 30.3 Seconds (26.0-36.0)
[2020-01-18 14:01] LABS: BUN/Creatinine Ratio 24 (6-26); Blood Urea Nitrogen 26 mg/dL (8-23); Calcium 8.5 mg/dL (8.6-10.3); Carbon Dioxide 24 mEq/L (23-29); Chloride 106 mEq/L (98-107); Glucose 229 mg/dL (70-105); Magnesium 2.3 mg/dL (1.6-2.6); Osmolality,Calculated 300 (280-300); Potassium 4.1 mEq/L (3.5-5.1); Sodium 139 mEq/L (136-145); eGFR For African Americans > 60 (> 60); eGFR For Non-African Americans > 60 (> 60)
[2020-01-18] MEDS ORDERED: *HR* Phenylephrine 10 MG/ML VIAL IVC ONE (14:32)
[2020-01-18] MEDS ORDERED: *HR* Magnesium Sulfate 2 GM/50 ML PIGGYBACK IVPB ONE (14:32)
[2020-01-18] MEDS ORDERED: Lidocaine 2% Syringe 100 MG/5 ML IVP ONE (14:32)
[2020-01-18] MEDS ORDERED: *HR* Heparin 10,000 UNIT/10 ML VIAL IR ONE (14:32)
[2020-01-18] MEDS ORDERED: Mannitol 25% vial 12.5 GM/50 ML VIAL IVPB ONE (14:32)
[2020-01-18] MEDS ORDERED: Tranexamic Acid 1,000 MG/10 ML VIAL IR ONE (14:32)
[2020-01-18] MEDS ORDERED: Albumin Human 25% 25 GM/100 ML IV.SOLN IVPB ONE (14:32)
[2020-01-18] MEDS: *HR* FentaNYL (PF) 100 MCG/2 ML VIAL IVP PRN ×2 (15:32→20:22)
[2020-01-18] MEDS: Norepinephrine 4 MG/254 ML IV.SOLN IVC SCH (15:34)
[2020-01-18] MEDS: Clindamycin 900 MG/50 ML 900 MG/50 ML IV.SOLN IVPB SCH ×2 (15:56→23:03)
[2020-01-18 16:22] LABS: ABG Base Excess 0 mEq/L (-2 to 3); ABG HCO3 25 mEq/L (21-27); ABG Oxygen Saturation 90 % (95-98); ABG PCO2 43 mmHg (35-45); ABG PH 7.38 pH Units (7.32-7.45); ABG PO2 60 mmHg (85-104); ABG TCO2 27 mEq/L (20-26); Blood Gas Modality VC; Blood Gas VT 600 cc
[2020-01-18] MEDS: niCARdipine 20 MG/200 ML MLS IVC SCH ×4 (16:49→22:54)
[2020-01-18] MEDS: Insulin Human Regular 100 UNIT in 0.9 % Sodium Chloride 100 ML IVC SCH ×2 (16:52→17:11)
[2020-01-18] MEDS: Pantoprazole 40 MG VIAL IVP SCH (16:53)
[2020-01-18] MEDS: Amiodarone Premix 360 MG/200 ML BAG IVC SCH (16:56)
[2020-01-18] MEDS: Ketorolac 15 MG/ML VIAL IVP SCH ×2 (16:57→23:03)
[2020-01-18] MEDS: Metoclopramide 10 MG/2 ML VIAL IVP SCH ×2 (16:57→23:03)
[2020-01-18] MEDS: Albumin Human 5% 12.5 GM/250 ML IV.SOLN IVPB PRN ×2 (17:26→19:16)
[2020-01-18 20:44] LABS: ABG Base Excess 2 mEq/L (-2 to 3); ABG HCO3 27 mEq/L (21-27); ABG Oxygen Saturation 96 % (95-98); ABG PCO2 44 mmHg (35-45); ABG PH 7.39 pH Units (7.32-7.45); ABG PO2 86 mmHg (85-104); ABG TCO2 28 mEq/L (20-26); Blood Gas Modality AF; Blood Gas VT 600 cc
[2020-01-18 23:35] LABS: ABG Base Excess 2 mEq/L (-2 to 3); ABG HCO3 26 mEq/L (21-27); ABG Oxygen Saturation 86 % (95-98); ABG PCO2 41 mmHg (35-45); ABG PH 7.42 pH Units (7.32-7.45); ABG PO2 51 mmHg (85-104); ABG TCO2 28 mEq/L (20-26)
[2020-01-19] MEDS: niCARdipine 20 MG/200 ML MLS IVC SCH ×5 (03:09→20:00)
[2020-01-19 04:14] LABS: ABG Base Excess 1 mEq/L (-2 to 3); ABG HCO3 26 mEq/L (21-27); ABG Oxygen Saturation 89 % (95-98); ABG PCO2 38 mmHg (35-45); ABG PH 7.44 pH Units (7.32-7.45); ABG PO2 55 mmHg (85-104); ABG TCO2 27 mEq/L (20-26)
[2020-01-19 04:33] LABS: Hematocrit 21.3 % (37.5-50.1); Mean Corpuscular Volume 98.6 fL (83.0-100.0); Red Blood Count 2.16 M/mcL (4.19-5.50); Red Cell Distribution Width 14.9 % (11.5-14.5)
[2020-01-19 04:34] LABS: INR 1.1; Prothrombin Time 12.4 Seconds (9.4-12.1)
[2020-01-19 04:35] LABS: Hemoglobin 6.8 g/dL (12.9-16.9); Immature Granulocytes % 0.6 % (0-4); Immature Platelets 2.2 % (1.1-6.1); Lymphocytes # 0.6 K/mcL (0.6-4.6); Lymphocytes % 9.9 %; Mean Corpuscular HGB Conc 31.9 g/dL (31.6-35.5); Mean Corpuscular Hemoglobin 31.5 pg (28.0-33.3); Mean Platelet Volume 9.8 fL (9.4-12.4); Monocytes # 0.6 K/mcL (0.0-1.3); Monocytes % 8.8 %; Segmented Neutrophils % 80.7 %; White Blood Count 6.2 K/mcL (4.3-11.1)
[2020-01-19 04:37] LABS: Activated Partial Thrombo Time 28.4 Seconds (26.0-36.0)
[2020-01-19 04:43] LABS: BUN/Creatinine Ratio 24 (6-26); Blood Urea Nitrogen 25 mg/dL (8-23); Calcium 8.2 mg/dL (8.6-10.3); Carbon Dioxide 22 mEq/L (23-29); Chloride 110 mEq/L (98-107); Glucose 146 mg/dL (70-105); Magnesium 2.1 mg/dL (1.6-2.6); Osmolality,Calculated 299 (280-300); Potassium 4.1 mEq/L (3.5-5.1); Sodium 141 mEq/L (136-145); eGFR For African Americans > 60 (> 60); eGFR For Non-African Americans > 60 (> 60)
[2020-01-19] MEDS: Metoclopramide 10 MG/2 ML VIAL IVP SCH ×3 (04:56→17:54)
[2020-01-19] MEDS: Amiodarone Premix 360 MG/200 ML BAG IVC SCH ×2 (04:56→17:55)
[2020-01-19] MEDS: Ketorolac 15 MG/ML VIAL IVP SCH ×3 (04:57→17:55)
[2020-01-19 05:32] LABS: Platelet Count 85 K/mcL (140-400)
[2020-01-19 05:33] LABS: Platelet Estimate Decreased (Normal)
[2020-01-19 05:34] LABS: Anisocytosis 1+ (Not Present)
[2020-01-19] MEDS ORDERED: carvediloL 6.25 MG TABLET PO SCH (06:00)
[2020-01-19] MEDS ORDERED: D5% in Water 1,000 ML IVC PRN (07:27)
[2020-01-19] MEDS ORDERED: *HR* Dextrose 50 % in Water (Vial) 50 ML VIAL IVP PRN (07:27)
[2020-01-19] MEDS ORDERED: Dextrose Gel 15 GM/37.5 ML TUBE PO PRN ×2 (07:27)
[2020-01-19] MEDS: Budesonide/Formoterol 160/4.5 1 PUFF INH IH SCH ×2 (07:32→19:37)
[2020-01-19] MEDS: Insulin LISPRO 300 UNITS/3 ML VIAL SQ SCH ×3 (08:20→16:16)
[2020-01-19] MEDS: *HR* Heparin 5,000 UNIT/ML VIAL SQ SCH ×2 (08:26→17:54)
[2020-01-19] MEDS: Aspirin Enteric Coated 81 MG Tablet PO SCH (08:27)
[2020-01-19] MEDS: carvediloL 6.25 MG TABLET PO SCH ×2 (08:28→16:13)
[2020-01-19] MEDS: Chlorhexidine Rinse 15 ML MOUTHWASH MM SCH ×2 (08:28→20:06)
[2020-01-19] MEDS: Furosemide 20 MG/2 ML VIAL IVP SCH ×2 (08:28→20:06)
[2020-01-19] MEDS: Pantoprazole 40 MG VIAL IVP SCH (08:29)
[2020-01-19] MEDS: *HR* FentaNYL (PF) 100 MCG/2 ML VIAL IVP PRN ×2 (13:14→16:12)
[2020-01-19] MEDS: Norepinephrine 4 MG/254 ML IV.SOLN IVC SCH (13:45)
[2020-01-19] MEDS ORDERED: Insulin LISPRO 300 UNITS/3 ML VIAL SQ SCH (21:00)
[2020-01-20] MEDS: Ketorolac 15 MG/ML VIAL IVP SCH ×6 (00:06→22:57)
[2020-01-20] MEDS: niCARdipine 20 MG/200 ML MLS IVC SCH ×3 (00:06→08:38)
[2020-01-20] MEDS: Metoclopramide 10 MG/2 ML VIAL IVP SCH ×5 (00:06→22:55)
[2020-01-20] MEDS: *HR* FentaNYL (PF) 100 MCG/2 ML VIAL IVP PRN (03:24)
[2020-01-20 03:44] LABS: Basophils % 0.2 %; Eosinophils % 0.1 %; Hematocrit 27.7 % (37.5-50.1); Immature Granulocytes % 0.6 % (0-4); Lymphocytes % 11.6 %; Mean Corpuscular HGB Conc 32.5 g/dL (31.6-35.5); Mean Corpuscular Hemoglobin 31.9 pg (28.0-33.3); Mean Corpuscular Volume 98.2 fL (83.0-100.0); Mean Platelet Volume 9.8 fL (9.4-12.4); Monocytes # 0.8 K/mcL (0.0-1.3); Monocytes % 9.6 %; Neutrophils # 6.4 K/mcL (1.6-8.9); Red Blood Count 2.82 M/mcL (4.19-5.50); Red Cell Distribution Width 15.8 % (11.5-14.5); Segmented Neutrophils % 77.9 %; White Blood Count 8.2 K/mcL (4.3-11.1)
[2020-01-20 03:46] LABS: Platelet Count 94 K/mcL (140-400)
[2020-01-20 04:03] LABS: BUN/Creatinine Ratio 24 (6-26); Blood Urea Nitrogen 25 mg/dL (8-23); Calcium 8.3 mg/dL (8.6-10.3); Carbon Dioxide 24 mEq/L (23-29); Chloride 102 mEq/L (98-107); Glucose 324 mg/dL (70-105); Osmolality,Calculated 297 (280-300); Potassium 4.3 mEq/L (3.5-5.1); Sodium 135 mEq/L (136-145); eGFR For African Americans > 60 (> 60); eGFR For Non-African Americans > 60 (> 60)
[2020-01-20] MEDS: *HR* Heparin 5,000 UNIT/ML VIAL SQ SCH ×2 (05:41→17:50)
[2020-01-20] MEDS: Amiodarone Premix 360 MG/200 ML BAG IVC SCH (06:12)
[2020-01-20] MEDS: Budesonide/Formoterol 160/4.5 1 PUFF INH IH SCH ×2 (07:22→19:46)
[2020-01-20] MEDS: Chlorhexidine Rinse 15 ML MOUTHWASH MM SCH ×2 (08:37→19:35)
[2020-01-20] MEDS: Pantoprazole 40 MG VIAL IVP SCH (08:38)
[2020-01-20] MEDS: carvediloL 6.25 MG TABLET PO SCH ×2 (08:38→17:51)
[2020-01-20] MEDS: Furosemide 20 MG/2 ML VIAL IVP SCH ×2 (08:38→19:37)
[2020-01-20] MEDS: Aspirin Enteric Coated 81 MG Tablet PO SCH (08:38)
[2020-01-20] MEDS: Insulin LISPRO 300 UNITS/3 ML VIAL SQ SCH (08:54)
[2020-01-20 10:33] LABS: Mean Corpuscular Hemoglobin 30.9 pg (28.0-33.3); Mean Corpuscular Volume 99.7 fL (83.0-100.0); Mean Platelet Volume 9.5 fL (9.4-12.4); Red Blood Count 2.91 M/mcL (4.19-5.50); Red Cell Distribution Width 15.9 % (11.5-14.5); White Blood Count 8.5 K/mcL (4.3-11.1)
[2020-01-20 10:35] LABS: Platelet Count 95 K/mcL (140-400)
[2020-01-20] MEDS ORDERED: Naloxone 0.4 MG/ML INJ IVP PRN (10:38)
[2020-01-20] MEDS ORDERED: D5% in Water 1,000 ML IVC PRN (10:38)
[2020-01-20] MEDS ORDERED: Ondansetron 4 MG/2 ML VIAL IVP PRN (10:38)
[2020-01-20] MEDS ORDERED: Insulin Regular, Human 100 UNIT/ML IV PRN (10:38)
[2020-01-20] MEDS ORDERED: Dextrose Gel 15 GM/37.5 ML TUBE PO PRN ×2 (10:38)
[2020-01-20] MEDS ORDERED: *HR* Dextrose 50 % in Water (Vial) 50 ML VIAL IVP PRN (10:38)
[2020-01-20] MEDS ORDERED: Insulin DETEMIR 100 UNIT/ML X5UNITS SQ SCH (11:00)
[2020-01-20] MEDS ORDERED: Insulin LISPRO 300 UNITS/3 ML VIAL SQ SCH ×3 (11:30→21:00)
[2020-01-20] MEDS ORDERED: *HR* FentaNYL (PF) 100 MCG/2 ML VIAL IVP PRN (12:24)
[2020-01-20] MEDS: Insulin Human Regular 100 UNIT in 0.9 % Sodium Chloride 100 ML IVC SCH ×2 (15:32→22:38)
[2020-01-20] MEDS: Gabapentin 300 MG CAPSULE PO SCH ×2 (15:38→19:36)
[2020-01-20] MEDS ORDERED: carvediloL 6.25 MG TABLET PO SCH (17:00)
[2020-01-20] MEDS: *HR* Amiodarone 200 MG TABLET PO SCH (19:37)
[2020-01-20] MEDS: *HR* Metformin 500 MG TABLET PO SCH (19:37)
[2020-01-20] MEDS ORDERED: *HR* Amiodarone 200 MG TABLET PO SCH (21:00)
[2020-01-21] MEDS: Metoclopramide 10 MG/2 ML VIAL IVP SCH ×3 (04:29→17:32)
[2020-01-21] MEDS: *HR* Heparin 5,000 UNIT/ML VIAL SQ SCH ×2 (04:29→17:32)
[2020-01-21] MEDS: Ketorolac 15 MG/ML VIAL IVP SCH ×2 (04:30→12:10)
[2020-01-21 05:44] LABS: Basophils % 0.3 %; Eosinophils % 1.7 %; Red Cell Distribution Width 15.7 % (11.5-14.5)
[2020-01-21 05:46] LABS: Eosinophils # 0.1 K/mcL (0.0-0.6); Hematocrit 26.4 % (37.5-50.1); Hemoglobin 8.4 g/dL (12.9-16.9); Immature Platelets 2.4 % (1.1-6.1); Lymphocytes # 1.6 K/mcL (0.6-4.6); Lymphocytes % 22.3 %; Mean Corpuscular HGB Conc 31.8 g/dL (31.6-35.5); Mean Corpuscular Hemoglobin 30.9 pg (28.0-33.3); Mean Corpuscular Volume 97.1 fL (83.0-100.0); Mean Platelet Volume 9.9 fL (9.4-12.4); Monocytes # 0.6 K/mcL (0.0-1.3); Monocytes % 7.7 %; Neutrophils # 4.9 K/mcL (1.6-8.9); Platelet Count 100 K/mcL (140-400); Red Blood Count 2.72 M/mcL (4.19-5.50); White Blood Count 7.3 K/mcL (4.3-11.1)
[2020-01-21 06:02] LABS: Albumin 3.2 g/dL (3.5-5.7); Albumin/Globulin Ratio 1.4 (1.1-2.2); Bilirubin,Total 0.7 mg/dL (0.3-1.0); Calcium 8.4 mg/dL (8.6-10.3); Globulin 2.3 g/dL (2.4-3.5); Magnesium 1.8 mg/dL (1.6-2.6); Phosphorous 3.6 mg/dL (2.7-4.5); Potassium 3.8 mEq/L (3.5-5.1); Total Protein 5.5 g/dL (6.4-8.9)
[2020-01-21 06:04] LABS: VBG Ionized Calcium 1.13 mmol/L (1.15-1.35)
[2020-01-21] MEDS: Budesonide/Formoterol 160/4.5 1 PUFF INH IH SCH ×2 (07:33→20:12)
[2020-01-21] MEDS: Chlorhexidine Rinse 15 ML MOUTHWASH MM SCH ×2 (08:22→19:58)
[2020-01-21] MEDS: Pantoprazole 40 MG VIAL IVP SCH (08:23)
[2020-01-21] MEDS: carvediloL 6.25 MG TABLET PO SCH ×2 (08:25→17:32)
[2020-01-21] MEDS: Furosemide 20 MG/2 ML VIAL IVP SCH (08:25)
[2020-01-21] MEDS: Gabapentin 300 MG CAPSULE PO SCH (08:26)
[2020-01-21] MEDS: *HR* Amiodarone 200 MG TABLET PO SCH ×2 (08:26→19:59)
[2020-01-21] MEDS: *HR* Metformin 500 MG TABLET PO SCH (08:27)
[2020-01-21] MEDS: Aspirin Enteric Coated 81 MG Tablet PO SCH (08:27)
[2020-01-21] MEDS: Insulin DETEMIR 100 UNIT/ML X5UNITS SQ SCH ×2 (09:49→19:58)
[2020-01-21] MEDS: Insulin LISPRO 300 UNITS/3 ML VIAL SQ SCH ×3 (12:09→20:06)
[2020-01-21] MEDS: Gabapentin 100 MG CAPSULE PO SCH ×2 (16:02→19:58)
[2020-01-22 02:40] LABS: Basophils % 0.2 %; Eosinophils # 0.1 K/mcL (0.0-0.6); Hematocrit 27.9 % (37.5-50.1); Immature Granulocytes % 0.9 % (0-4); Lymphocytes # 0.9 K/mcL (0.6-4.6); Lymphocytes % 13.4 %; Mean Corpuscular HGB Conc 32.3 g/dL (31.6-35.5); Mean Corpuscular Hemoglobin 31.1 pg (28.0-33.3); Mean Corpuscular Volume 96.5 fL (83.0-100.0); Mean Platelet Volume 9.9 fL (9.4-12.4); Monocytes # 0.6 K/mcL (0.0-1.3); Monocytes % 8.6 %; Platelet Count 124 K/mcL (140-400); Red Blood Count 2.89 M/mcL (4.19-5.50); Red Cell Distribution Width 15.3 % (11.5-14.5); Segmented Neutrophils % 74.9 %; White Blood Count 6.7 K/mcL (4.3-11.1)
[2020-01-22 02:53] LABS: Calcium 8.5 mg/dL (8.6-10.3); Potassium 4.2 mEq/L (3.5-5.1)
[2020-01-22] MEDS ORDERED: Aspirin 325 MG TABLET PO ONE (03:55)
[2020-01-22] MEDS: *HR* Heparin 5,000 UNIT/ML VIAL SQ SCH ×2 (04:33→16:55)
[2020-01-22] MEDS: Budesonide/Formoterol 160/4.5 1 PUFF INH IH SCH ×2 (07:21→20:15)
[2020-01-22] MEDS: carvediloL 6.25 MG TABLET PO SCH ×2 (08:04→16:56)
[2020-01-22] MEDS: Insulin LISPRO 300 UNITS/3 ML VIAL SQ SCH ×5 (08:05→21:08)
[2020-01-22] MEDS: Furosemide 20 MG/2 ML VIAL IVP ONE (09:55)
[2020-01-22] MEDS: Aspirin Enteric Coated 81 MG Tablet PO SCH (09:55)
[2020-01-22] MEDS: Chlorhexidine Rinse 15 ML MOUTHWASH MM SCH ×2 (09:56→21:19)
[2020-01-22] MEDS: *HR* Amiodarone 200 MG TABLET PO SCH ×2 (09:57→21:09)
[2020-01-22] MEDS: Insulin DETEMIR 100 UNIT/ML X5UNITS SQ SCH ×2 (09:58→21:08)
[2020-01-22] MEDS: Gabapentin 100 MG CAPSULE PO SCH ×3 (09:58→21:09)
[2020-01-22] MEDS: Pantoprazole 40 MG VIAL IVP SCH (09:59)
[2020-01-23 01:34] LABS: Basophils % 0.2 %; Eosinophils # 0.1 K/mcL (0.0-0.6); Eosinophils % 2.4 %; Hematocrit 27.8 % (37.5-50.1); Hemoglobin 8.9 g/dL (12.9-16.9); Immature Granulocytes % 0.7 % (0-4); Lymphocytes # 1.1 K/mcL (0.6-4.6); Lymphocytes % 18.7 %; Mean Corpuscular Hemoglobin 31.7 pg (28.0-33.3); Mean Corpuscular Volume 98.9 fL (83.0-100.0); Mean Platelet Volume 9.7 fL (9.4-12.4); Monocytes # 0.7 K/mcL (0.0-1.3); Monocytes % 11.1 %; Neutrophils # 3.9 K/mcL (1.6-8.9); Platelet Count 133 K/mcL (140-400); Red Blood Count 2.81 M/mcL (4.19-5.50); Red Cell Distribution Width 15.3 % (11.5-14.5); Segmented Neutrophils % 66.9 %; White Blood Count 5.8 K/mcL (4.3-11.1)
[2020-01-23 01:56] LABS: BUN/Creatinine Ratio 39 (6-26); Blood Urea Nitrogen 48 mg/dL (8-23); Calcium 8.4 mg/dL (8.6-10.3); Carbon Dioxide 24 mEq/L (23-29); Chloride 104 mEq/L (98-107); Glucose 271 mg/dL (70-105); Osmolality,Calculated 302 (280-300); Potassium 4.4 mEq/L (3.5-5.1); Sodium 135 mEq/L (136-145); eGFR For African Americans > 60 (> 60); eGFR For Non-African Americans 57 (> 60)
[2020-01-23] MEDS: *HR* Heparin 5,000 UNIT/ML VIAL SQ SCH ×2 (05:27→16:49)
[2020-01-23] MEDS: Insulin LISPRO 300 UNITS/3 ML VIAL SQ SCH ×7 (07:34→20:52)
[2020-01-23] MEDS: Budesonide/Formoterol 160/4.5 1 PUFF INH IH SCH ×2 (07:35→19:43)
[2020-01-23] MEDS: Pantoprazole 40 MG VIAL IVP SCH (07:35)
[2020-01-23] MEDS: Chlorhexidine Rinse 15 ML MOUTHWASH MM SCH ×2 (07:35→20:51)
[2020-01-23] MEDS: *HR* Amiodarone 200 MG TABLET PO SCH ×2 (07:36→20:51)
[2020-01-23] MEDS: Gabapentin 100 MG CAPSULE PO SCH ×3 (07:37→20:51)
[2020-01-23] MEDS: Aspirin Enteric Coated 81 MG Tablet PO SCH (07:37)
[2020-01-23] MEDS: carvediloL 6.25 MG TABLET PO SCH ×2 (07:38→16:50)
[2020-01-23] MEDS: Insulin DETEMIR 100 UNIT/ML X5UNITS SQ SCH ×2 (07:55→20:52)
[2020-01-23] MEDS: *HR* Metformin 500 MG TABLET PO SCH (20:51)
[2020-01-24] MEDS: *HR* Heparin 5,000 UNIT/ML VIAL SQ SCH ×2 (05:25→16:53)
[2020-01-24 06:29] LABS: Basophils % 0.3 %; Eosinophils # 0.1 K/mcL (0.0-0.6); Eosinophils % 1.9 %; Hematocrit 28.9 % (37.5-50.1); Hemoglobin 9.2 g/dL (12.9-16.9); Immature Granulocytes % 1.6 % (0-4); Lymphocytes # 1.2 K/mcL (0.6-4.6); Mean Corpuscular HGB Conc 31.8 g/dL (31.6-35.5); Mean Corpuscular Hemoglobin 30.8 pg (28.0-33.3); Mean Corpuscular Volume 96.7 fL (83.0-100.0); Mean Platelet Volume 9.2 fL (9.4-12.4); Monocytes # 0.6 K/mcL (0.0-1.3); Monocytes % 9.7 %; Neutrophils # 4.3 K/mcL (1.6-8.9); Platelet Count 152 K/mcL (140-400); Red Blood Count 2.99 M/mcL (4.19-5.50); Segmented Neutrophils % 67.5 %; White Blood Count 6.4 K/mcL (4.3-11.1)
[2020-01-24 06:47] LABS: BUN/Creatinine Ratio 33 (6-26); Blood Urea Nitrogen 33 mg/dL (8-23); Calcium 8.7 mg/dL (8.6-10.3); Carbon Dioxide 25 mEq/L (23-29); Chloride 104 mEq/L (98-107); Glucose 190 mg/dL (70-105); Osmolality,Calculated 294 (280-300); Potassium 4.2 mEq/L (3.5-5.1); Sodium 136 mEq/L (136-145); eGFR For African Americans > 60 (> 60); eGFR For Non-African Americans > 60 (> 60)
[2020-01-24] MEDS: Budesonide/Formoterol 160/4.5 1 PUFF INH IH SCH ×2 (07:10→19:55)
[2020-01-24] MEDS: Chlorhexidine Rinse 15 ML MOUTHWASH MM SCH ×2 (08:01→20:49)
[2020-01-24] MEDS: Gabapentin 100 MG CAPSULE PO SCH ×3 (08:02→20:50)
[2020-01-24] MEDS: *HR* Amiodarone 200 MG TABLET PO SCH ×2 (08:02→20:50)
[2020-01-24] MEDS: *HR* Metformin 500 MG TABLET PO SCH ×2 (08:02→16:53)
[2020-01-24] MEDS: carvediloL 6.25 MG TABLET PO SCH ×2 (08:02→16:54)
[2020-01-24] MEDS: Aspirin Enteric Coated 81 MG Tablet PO SCH (08:03)
[2020-01-24] MEDS: Insulin DETEMIR 100 UNIT/ML X5UNITS SQ SCH (08:17)
[2020-01-24] MEDS: Insulin LISPRO 300 UNITS/3 ML VIAL SQ SCH ×7 (08:18→20:51)
[2020-01-24] MEDS ORDERED: Insulin DETEMIR 100 UNIT/ML X5UNITS SQ ONE (08:48)
[2020-01-24] MEDS ORDERED: Insulin DETEMIR 100 UNIT/ML X5UNITS SQ SCH ×2 (09:00→21:00)
[2020-01-25] MEDS: *HR* Heparin 5,000 UNIT/ML VIAL SQ SCH ×2 (06:28→17:51)
[2020-01-25] MEDS: Budesonide/Formoterol 160/4.5 1 PUFF INH IH SCH ×2 (07:12→20:19)
[2020-01-25] MEDS: Chlorhexidine Rinse 15 ML MOUTHWASH MM SCH ×2 (08:47→21:04)
[2020-01-25] MEDS: Insulin DETEMIR 100 UNIT/ML X5UNITS SQ SCH ×2 (08:47→21:06)
[2020-01-25] MEDS: *HR* Metformin 500 MG TABLET PO SCH ×2 (08:47→17:51)
[2020-01-25] MEDS: Gabapentin 100 MG CAPSULE PO SCH ×3 (08:47→21:05)
[2020-01-25] MEDS: carvediloL 6.25 MG TABLET PO SCH ×2 (08:49→17:51)
[2020-01-25] MEDS: *HR* Amiodarone 200 MG TABLET PO SCH ×2 (08:49→21:05)
[2020-01-25] MEDS: Aspirin Enteric Coated 81 MG Tablet PO SCH (08:50)
[2020-01-25] MEDS: Insulin LISPRO 300 UNITS/3 ML VIAL SQ SCH ×7 (08:51→21:05)
[2020-01-25] MEDS ORDERED: Furosemide 20 MG/2 ML VIAL IVP ONE (09:13)
[2020-01-25] MEDS: Furosemide 20 MG/2 ML VIAL IVP ONE (11:58)
[2020-01-26] MEDS: *HR* Heparin 5,000 UNIT/ML VIAL SQ SCH ×2 (05:15→17:35)
[2020-01-26] MEDS: Budesonide/Formoterol 160/4.5 1 PUFF INH IH SCH ×2 (07:39→19:27)
[2020-01-26] MEDS: Insulin LISPRO 300 UNITS/3 ML VIAL SQ SCH ×7 (08:56→21:32)
[2020-01-26] MEDS: Chlorhexidine Rinse 15 ML MOUTHWASH MM SCH ×2 (09:02→21:44)
[2020-01-26] MEDS: *HR* Metformin 500 MG TABLET PO SCH ×2 (09:03→17:34)
[2020-01-26] MEDS: *HR* Amiodarone 200 MG TABLET PO SCH ×2 (09:03→21:46)
[2020-01-26] MEDS: Gabapentin 100 MG CAPSULE PO SCH ×3 (09:03→21:45)
[2020-01-26] MEDS: Aspirin Enteric Coated 81 MG Tablet PO SCH (09:03)
[2020-01-26] MEDS: carvediloL 6.25 MG TABLET PO SCH ×2 (09:03→17:34)
[2020-01-26] MEDS: Insulin DETEMIR 100 UNIT/ML X5UNITS SQ SCH ×2 (10:22→21:45)
[2020-01-27] MEDS: *HR* Heparin 5,000 UNIT/ML VIAL SQ SCH ×2 (04:30→16:46)
[2020-01-27] MEDS: Budesonide/Formoterol 160/4.5 1 PUFF INH IH SCH ×2 (07:55→19:37)
[2020-01-27] MEDS: Insulin LISPRO 300 UNITS/3 ML VIAL SQ SCH ×7 (08:31→22:12)
[2020-01-27] MEDS: Gabapentin 100 MG CAPSULE PO SCH ×3 (08:39→22:10)
[2020-01-27] MEDS: Chlorhexidine Rinse 15 ML MOUTHWASH MM SCH ×2 (08:39→22:10)
[2020-01-27] MEDS: Aspirin Enteric Coated 81 MG Tablet PO SCH (08:40)
[2020-01-27] MEDS: carvediloL 6.25 MG TABLET PO SCH ×2 (08:40→16:46)
[2020-01-27] MEDS: *HR* Amiodarone 200 MG TABLET PO SCH ×2 (08:40→22:10)
[2020-01-27] MEDS: *HR* Metformin 500 MG TABLET PO SCH ×2 (08:40→16:46)
[2020-01-27] MEDS: Insulin DETEMIR 100 UNIT/ML X5UNITS SQ SCH ×2 (08:40→22:34)
[2020-01-28] MEDS: *HR* Heparin 5,000 UNIT/ML VIAL SQ SCH ×2 (05:46→17:29)
[2020-01-28] MEDS: Budesonide/Formoterol 160/4.5 1 PUFF INH IH SCH ×2 (07:22→19:35)
[2020-01-28] MEDS: Insulin LISPRO 300 UNITS/3 ML VIAL SQ SCH ×7 (10:06→20:58)
[2020-01-28] MEDS: Gabapentin 100 MG CAPSULE PO SCH ×4 (10:14→20:52)
[2020-01-28] MEDS: carvediloL 6.25 MG TABLET PO SCH ×2 (10:14→17:07)
[2020-01-28] MEDS: Chlorhexidine Rinse 15 ML MOUTHWASH MM SCH ×2 (10:14→21:09)
[2020-01-28] MEDS: *HR* Metformin 500 MG TABLET PO SCH ×2 (10:14→17:06)
[2020-01-28] MEDS: *HR* Amiodarone 200 MG TABLET PO SCH ×2 (10:14→20:51)
[2020-01-28] MEDS: Insulin DETEMIR 100 UNIT/ML X5UNITS SQ SCH ×2 (10:15→20:57)
[2020-01-28] MEDS: Aspirin Enteric Coated 81 MG Tablet PO SCH (10:15)
[2020-01-29] MEDS: *HR* Heparin 5,000 UNIT/ML VIAL SQ SCH ×2 (05:13→17:43)
[2020-01-29] MEDS: Budesonide/Formoterol 160/4.5 1 PUFF INH IH SCH ×2 (07:33→19:56)
[2020-01-29] MEDS: *HR* Metformin 500 MG TABLET PO SCH ×2 (08:11→18:11)
[2020-01-29] MEDS: carvediloL 6.25 MG TABLET PO SCH ×2 (08:11→18:10)
[2020-01-29] MEDS: Aspirin Enteric Coated 81 MG Tablet PO SCH (08:12)
[2020-01-29] MEDS: Chlorhexidine Rinse 15 ML MOUTHWASH MM SCH ×2 (08:12→21:23)
[2020-01-29] MEDS: *HR* Amiodarone 200 MG TABLET PO SCH ×2 (08:12→21:22)
[2020-01-29] MEDS: Insulin LISPRO 300 UNITS/3 ML VIAL SQ SCH ×7 (08:13→21:22)
[2020-01-29] MEDS: Insulin DETEMIR 100 UNIT/ML X5UNITS SQ SCH (08:43)
[2020-01-29] MEDS: Gabapentin 100 MG CAPSULE PO SCH ×2 (16:19→21:22)
[2020-01-30] MEDS: Insulin DETEMIR 100 UNIT/ML X5UNITS SQ SCH ×3 (00:14→20:07)
[2020-01-30] MEDS: *HR* Heparin 5,000 UNIT/ML VIAL SQ SCH ×2 (05:28→17:22)
[2020-01-30] MEDS: Budesonide/Formoterol 160/4.5 1 PUFF INH IH SCH ×2 (07:25→19:52)
[2020-01-30] MEDS: Insulin LISPRO 300 UNITS/3 ML VIAL SQ SCH ×7 (09:09→20:08)
[2020-01-30] MEDS: Aspirin Enteric Coated 81 MG Tablet PO SCH (09:24)
[2020-01-30] MEDS: carvediloL 6.25 MG TABLET PO SCH ×2 (09:24→16:22)
[2020-01-30] MEDS: *HR* Metformin 500 MG TABLET PO SCH ×2 (09:24→16:23)
[2020-01-30] MEDS: *HR* Amiodarone 200 MG TABLET PO SCH ×2 (09:24→20:07)
[2020-01-30] MEDS: Chlorhexidine Rinse 15 ML MOUTHWASH MM SCH ×2 (09:24→20:15)
[2020-01-30] MEDS: Gabapentin 100 MG CAPSULE PO SCH ×3 (09:24→20:07)
[2020-01-31] MEDS: *HR* Heparin 5,000 UNIT/ML VIAL SQ SCH ×2 (06:26→18:11)
[2020-01-31] MEDS: Budesonide/Formoterol 160/4.5 1 PUFF INH IH SCH ×2 (07:16→20:05)
[2020-01-31] MEDS: carvediloL 6.25 MG TABLET PO SCH ×2 (08:39→18:11)
[2020-01-31] MEDS: Gabapentin 100 MG CAPSULE PO SCH ×3 (08:39→20:27)
[2020-01-31] MEDS: Insulin DETEMIR 100 UNIT/ML X5UNITS SQ SCH ×2 (08:39→20:28)
[2020-01-31] MEDS: *HR* Amiodarone 200 MG TABLET PO SCH ×2 (08:39→20:27)
[2020-01-31] MEDS: *HR* Metformin 500 MG TABLET PO SCH ×2 (08:39→18:11)
[2020-01-31] MEDS: Chlorhexidine Rinse 15 ML MOUTHWASH MM SCH ×2 (08:40→20:28)
[2020-01-31] MEDS: Insulin LISPRO 300 UNITS/3 ML VIAL SQ SCH ×6 (08:40→20:32)
[2020-01-31] MEDS: Aspirin Enteric Coated 81 MG Tablet PO SCH (10:43)
[2020-02-01 05:13] LABS: BUN/Creatinine Ratio 36 (6-26); Blood Urea Nitrogen 43 mg/dL (8-23); Calcium 8.3 mg/dL (8.6-10.3); Carbon Dioxide 23 mEq/L (23-29); Chloride 104 mEq/L (98-107); Glucose 184 mg/dL (70-105); Magnesium 1.1 mg/dL (1.6-2.6); Osmolality,Calculated 298 (280-300); Phosphorous 3.1 mg/dL (2.7-4.5); Potassium 4.9 mEq/L (3.5-5.1); Sodium 136 mEq/L (136-145); eGFR For African Americans > 60 (> 60); eGFR For Non-African Americans 59 (> 60)
[2020-02-01] MEDS: *HR* Heparin 5,000 UNIT/ML VIAL SQ SCH ×2 (06:19→16:23)
[2020-02-01] MEDS: Budesonide/Formoterol 160/4.5 1 PUFF INH IH SCH ×2 (07:55→19:41)
[2020-02-01] MEDS: Insulin LISPRO 300 UNITS/3 ML VIAL SQ SCH ×4 (10:16→20:43)
[2020-02-01] MEDS: Gabapentin 100 MG CAPSULE PO SCH ×3 (10:16→20:43)
[2020-02-01] MEDS: *HR* Amiodarone 200 MG TABLET PO SCH ×2 (10:17→20:42)
[2020-02-01] MEDS: carvediloL 6.25 MG TABLET PO SCH ×2 (10:17→16:23)
[2020-02-01] MEDS: *HR* Metformin 500 MG TABLET PO SCH ×2 (10:18→16:29)
[2020-02-01] MEDS: Chlorhexidine Rinse 15 ML MOUTHWASH MM SCH ×2 (10:18→20:43)
[2020-02-01] MEDS: Aspirin Enteric Coated 81 MG Tablet PO SCH (10:18)
[2020-02-01] MEDS: Insulin DETEMIR 100 UNIT/ML X5UNITS SQ SCH ×2 (10:22→20:43)
[2020-02-02 03:37] LABS: BUN/Creatinine Ratio 36 (6-26); Blood Urea Nitrogen 40 mg/dL (8-23); Calcium 8.4 mg/dL (8.6-10.3); Carbon Dioxide 21 mEq/L (23-29); Chloride 103 mEq/L (98-107); Glucose 136 mg/dL (70-105); Magnesium 1.6 mg/dL (1.6-2.6); Osmolality,Calculated 288 (280-300); Potassium 4.8 mEq/L (3.5-5.1); Sodium 133 mEq/L (136-145); eGFR For African Americans > 60 (> 60); eGFR For Non-African Americans > 60 (> 60)
[2020-02-02] MEDS: *HR* Heparin 5,000 UNIT/ML VIAL SQ SCH ×2 (05:05→19:38)
[2020-02-02] MEDS: Budesonide/Formoterol 160/4.5 1 PUFF INH IH SCH ×3 (07:25→20:27)
[2020-02-02] MEDS: Insulin LISPRO 300 UNITS/3 ML VIAL SQ SCH ×4 (09:05→20:59)
[2020-02-02] MEDS: *HR* Metformin 500 MG TABLET PO SCH ×2 (09:06→19:38)
[2020-02-02] MEDS: *HR* Amiodarone 200 MG TABLET PO SCH ×2 (09:06→21:00)
[2020-02-02] MEDS: Aspirin Enteric Coated 81 MG Tablet PO SCH (09:06)
[2020-02-02] MEDS: carvediloL 6.25 MG TABLET PO SCH ×2 (09:06→19:39)
[2020-02-02] MEDS: Gabapentin 100 MG CAPSULE PO SCH ×3 (09:07→21:00)
[2020-02-02] MEDS: Chlorhexidine Rinse 15 ML MOUTHWASH MM SCH ×2 (09:07→21:00)
[2020-02-02] MEDS: Insulin DETEMIR 100 UNIT/ML X5UNITS SQ SCH ×2 (09:20→20:59)
[2020-02-02 20:10] VITALS: BP 127/74
== END 2020-02-02 21:25 | disposition other institution (70) | DRG 228 ==
LOC: ICNU → SUATTDRO 06:31 → OBSVTOIN 06:31 → 3ANU 17:10 → 2ANU 01-15 14:53 → ICNU 01-18 11:08 → 2NNU 01-20 17:22
PROVIDERS: ADMIT Internal Medicine; ATTEND Internal Medicine